=== PATIENT | female | born 1955 | race Caucasian/White ===

== ENCOUNTER 2018-05-09 14:44 | Emergency (ER) | payer BC ==
--- OUTSIDE RECORDS SUMMARY | 2018-05-09 14:48 | XMS REPORT | Summary of Care ---
:1955 Author Organization [facility] Address [address] [address]- Encounter HQ Charlie_kori(FIN) [id number] Date(s): 12/05/16 - 12/05/16 [facility] [address] [place] [phone] Discharge Disposition: Home or Self Care Attending Physician: Catia Haywood MD Referring Physician: Catia Haywood MD Vital Signs Most recent to oldest [Reference Range]: 1 Height 158.75 cm (12/05/16 11:14 AM) Blood Pressure [90-140/60-90 mmHg] 127/80 mmHg (12/05/16 11:14 AM) Respiratory Rate [14-20 BRMIN] 16 BRMIN (12/05/16 11:14 AM) Peripheral Pulse Rate [60-100 bpm] 66 bpm (12/05/16 11:14 AM) Weight 68.182 kg (12/05/16 11:14 AM) Body Mass Index 27.05 m2 (12/05/16 11:14 AM) Problem List Condition Effective Dates Status Health Status Informant Chronic constipation(Confirmed) Resolved Constipation(Confirmed) Active Bilateral breast cysts(Confirmed) Resolved History of IBS(Confirmed) Resolved Eye lesion(Confirmed) Resolved Migraines(Confirmed) Resolved Allergies, Adverse Reactions, Alerts Substance Reaction Severity Status contrast media (iodine-based) Active Demerol HCl Active morphine Active naproxen Active penicillins Active statins Active Medications aspirin 81 mg tablet, chewable 81 mg=1 tab, PO, TID, 0 Refill(s) Start Date: 12/05/16 Status: OrderedBenadryl 0 Refill(s) Start Date: 12/05/16 Status: Ordereddocusate sodium 100 mg oral capsule 200 mg=2 cap, PO, Daily, with plenty of water take at bedtime, # 60 cap, 1 Refill(s), Pharmacy: [place] [id number] Start Date: 12/05/16 Stop Date: 02/03/17 Status: OrderedMoviPrep oral powder for reconstitution See Instructions, as directed in clinic, # 1 ea, 0 Refill(s), Pharmacy: [place] [id number] Start Date: 12/05/16 Status: Ordered Results No data available for this section Immunizations No data available for this section Procedures Procedure Date Related Diagnosis Body Site Excision of cyst of breast Total hysterectomy Social History Social History Type Response Alcohol Current, Type Liquor. Frequency: 1-2 times per month. Smoking Status Never smoker; Ready to change: No; Concerns about tobacco use in household: No; Exposure to Tobacco Smoke None; Cigarette Smoking Last 365 Days No; Reg Smoking Cessation Counseling No Assessment and Plan No data available for this section
--- OUTSIDE RECORDS SUMMARY | 2018-05-09 14:48 | XMS REPORT | Continuity of Care Document ---
:1955 Author Organization Interface Problems Problem Status Onset Classification Date Comments Source Date Reported BDDC- ABD PAIN, Active 12/06/19 [facility] BLOATING, IBS, 17 Medical NAUSEA, E Center BDDC- ABD Active 12/06/19 [facility] FULLNESS R19.8; [address] [place] [address] GASTROPARESIS Center CONSULT Active 10/27/[address] Center Chronic Resolved Problem 12/08/2016 [facility] constipation [facility] Constipation Active Problem 12/08/2016 [facility] Bilateral breast Resolved Problem 12/08/2016 [facility] cysts [facility] History of IBS Resolved Problem 12/08/2016 [facility] Eye lesion Resolved Problem 12/08/2016 [facility] Migraines Resolved Problem 12/08/2016 [facility] Medications Medication Details Route Status Patient Ordering Order Source Instructions Provider Date Docusate Sodium 200 mg=2 Active [facility] 100 MG Oral cap, PO, 017 Medical Capsule Daily, with Rudolph plenty of water take at bedtime, # 60 cap, 1 Refill(s), Pharmacy: [facility] 256 Ascorbic Acid See Active [facility] 4.7 MG/ML / Instructions 017 Medical POLYETHYLENE , as Center GLYCOL 3350 100 directed in MG/ML / clinic, # 1 Potassium ea, 0 Chloride 0.0136 Refill(s), MEQ/ML / Sodium Pharmacy: [facility] 5.9 [facility] MG/ML / Sodium [facility] Chloride 0.046 256 MEQ/ML / sodium sulfate 7.5 MG/ML Oral Solution [MoviPrep] Benadryl 0 Refill(s) Active [address] Center Aspirin 81 MG 81 mg=1 tab, Active [facility] Chewable Tablet PO, TID, 0 017 Medical Refill(s) Rudolph Allergies, Adverse Reactions, Alerts Substance Category Reaction Severity Reaction Status Date Comments Source type Reported contrast Assertion Drug Active [facility] media allergy Medical (iodine-based Center ) Demerol HCl Assertion Drug Active [facility] morphine Assertion Drug Active [facility] naproxen Assertion Drug Active [facility] penicillins Assertion Drug Active [facility] statins Assertion Drug Active [facility] Immunizations Immunization Date Given Site Status Last Updated Comments Source Results Order Results Value Reference Date Interpretation Comments Source Name Range Vital Signs Vital Sign Value Date Comments Source Weight 68.182 12/05/2016 [facility] BMI Calculated 27.05 12/05/2016 [facility] Height 158.75 cm 12/05/2016 [facility] Heart Rate 66 12/05/2016 [facility] Respitory Rate 16 12/05/2016 [facility] Systolic (mm Hg) 127 12/05/2016 [facility] Diastolic (mm Hg) 80 12/05/2016 [facility] Encounters Location Location Encounter Encounter Reason Attending ADM DC Status Source Details Type Number For Provider Date Date [facility] [id number] Catia Haywood 12/05 12/06 [facility]2016 [facility] Outpatient [id number] ISMAEL 02/[address] Outpatient [id number] ISMAEL 04/[address] Outpatient [id number] ISMAEL 07/[address] Procedures Procedure Code Date Perfomer Comments Source Excision of cyst of [id number] [facility] breast [facility] Total hysterectomy [id number] [facility]
--- OUTSIDE RECORDS SUMMARY | 2018-05-09 14:48 | XMS REPORT ---
:1955 Author Organization [facility] Address [address] [place] [address] Care Team Providers Name Role Phone Unavailable Unavailable Unavailable Problems This patient has no known problems. Allergies, Adverse Reactions, Alerts This patient has no known allergies or adverse reactions. Medications This patient has no known medications.
[2018-05-09 16:20] LABS: Absolute Lymphocytes (CBC) 2.4 K/uL (0.7-4.9); Absolute Monocytes 0.4 K/uL (0.1-1.3); Absolute Neutrophil 3.4 K/uL (1.8-8.0); Basophils % 0.4 % (0-1.3); Eosinophils % 1.5 % (0-4.4); Hematocrit 43.1 % (36.0-45.0); Lymphocytes % 38.2 % (15.3-44.8); MCH 29.4 pg (27.0-35.0); MCV 86.4 fL (80-100); MPV 10.5 fL (7.6-11.3); RBC Red Blood Cell Count 4.99 M/uL (3.86-4.86)
[2018-05-09] MEDS ORDERED: FAMOTIDINE 20 MG/2 ML VIAL IV ONE (16:35)
[2018-05-09] MEDS ORDERED: ONDANSETRON 4 MG/2 ML VIAL ONE (16:35)
[2018-05-09 16:40] LABS: ALT/SGPT 23 U/L (12-78); AST/SGOT 13 U/L (15-37); Albumin 4.1 g/dL (3.4-5.0); Alkaline Phosphatase 81 U/L (45-117); BUN Blood Urea Nitrogen 13 mg/dL (7-18); Bicarbonate 26 mmol/L (21-32); Bilirubin Direct 0.1 mg/dL (0-0.2); Bilirubin Total 0.4 mg/dL (0.2-1.0); Glucose Level 91 mg/dL (74-106); Lipase 128 U/L (73-393); Magnesium 2.1 mg/dL (1.8-2.4); Potassium 4.1 mmol/L (3.5-5.1); Protein, Total 7.6 g/dL (6.4-8.2); Sodium Level 142 mmol/L (136-145); Troponin I < 0.02 ng/mL (0.0-0.045)
--- NOTE | 2018-05-09 16:46 | RAD REPORT ---
EXAM DESCRIPTION: RAD - Shoulder Left 2 View - 05/09/2018 4:00 pm CLINICAL HISTORY: Left shoulder pain COMPARISON: None. TECHNIQUE: Internal and external rotation views of the left shoulder were obtained. FINDINGS: There is no fracture or dislocation. Minimal degenerative change at the AC joint with no i nferiorly directed spur. There is degenerative change along the undersurface of the acromion. The acr omial humeral joint space is still normal range with no abnormal soft tissue calcification. No acute scapula finding. No acute or destructive finding identifiable. IMPRESSION: Mild acromion and AC joint degenerative change. No acute or destructive bone or joint fi nding.
--- NOTE | 2018-05-09 16:49 | RAD REPORT ---
EXAM DESCRIPTION: US - Abdomen Exam Limited - 05/09/2018 4:30 pm CLINICAL HISTORY: Abdominal pain, right upper quadrant pain COMPARISON: CT study March 2009 FINDINGS: No gallstones, sludge or other abnormalities within the gallbladder lumen. There is no wal l thickening or pericholecystic fluid. No common duct stone or biliary tree dilatation identified. IMPRESSION: Normal gallbladder and biliary tree ultrasound.
--- NOTE | 2018-05-09 16:56 | RAD REPORT ---
EXAM DESCRIPTION: CT - Stone Protocol - 05/09/2018 4:48 pm CLINICAL HISTORY: Right flank pain for 2 weeks, now with left flank pain and nausea COMPARISON: CT study March 2009 TECHNIQUE: Axial 5 mm thick images were obtained without oral or IV contrast. The [id number] span s the entirety of the system including uppermost abdomen and lung bases. All CT scans are performed using dose optimization technique as appropriate and may include automated exposure control or mA/KV adjustment according to patient size. FINDINGS: No hydronephrosis is present and no obstructing ureteral calculi. No suspicious renal mass es. Isodense masses and pyelonephritis are not excluded on a stone protocol CT scan. No urinary bladd er suspicious finding. No nonobstructing calculi. Right lower pelvic phleboliths are present outsi de of the system. Uterus is absent. Ovaries are absent or atrophic. No adnexal mass. Imaged portions of the liver, spleen and pancreas show no suspicious findings on non-contrast imaging . No gallbladder or biliary tree abnormality identified. No significant adrenal finding. No suspicious bowel findings. Appendix is normal. No acute colon process seen. No hernia, mass or bulky lymphadenopathy noted. No free air, free fluid or inflammatory stranding. No significant bony abnormality. IMPRESSION: Negative CT stone protocol study for acute finding. Isodense masses and pyelonephritis are not excluded on stone protocol technique.
[2018-05-09 17:24] LABS: Urine Blood NEGATIVE (NEG); Urine Glucose NEGATIVE (NEG); Urine Protein NEGATIVE (NEG); Urine pH 5.5 (5.0-7.0)
[2018-05-09 17:34] LABS: Urine Mucus 1+ /HPF (NONE SEEN)
[2018-05-09 17:35] LABS: Urine Bacteria 20-50 /HPF (<20); Urine Culture Reflex Order REFLEXED; Urine RBC <5 /HPF (NONE SEEN)
--- NOTE | 2018-05-09 17:44 | ER ---
Nurse's Notes [facility] Name: Valorie Fairchild Age: 62 yrs Sex: Female : 1955 Arrival Date: 05/09/2018 Time: 14:48 Bed 24 Private MD: Pasquale Cardenas S Diagnosis: Right flank pain;Pain in left shoulder Presentation: 05/09 14:59 Presenting complaint: Patient states: Right flank pain x 2 weeks, left flank pain, and hb nausea since this morning. Denies difficulty urinating/pain with urination. Transition of care: patient was not received from another setting of care. Onset of symptoms is unknown. Risk Assessment: Do you want to hurt yourself or someone else? Patient reports no desire to harm self or others. Care prior to arrival: None. 14:59 Method Of Arrival: Ambulatory hb 14:59 Acuity: LAKEISHA 3 hb 15:30 Initial Sepsis Screen: Does the patient meet any 2 criteria? No. Patient's initial ss sepsis screen is negative. Does the patient have a suspected source of infection? No. Patient's initial sepsis screen is negative. Historical: - Allergies: 15:03 PENICILLINS; hb 15:03 Zznvaxa-Pzs-Hex Reductase Inhibitors; hb 15:04 Sulfa (Sulfonamide Antibiotics); hb 15:04 IV Contrast; hb - Immunization history:: Adult Immunizations up to date. - Social history:: Smoking status: Patient/guardian denies using tobacco. - Ebola Screening: : No symptoms or risks identified at this time. Screenin:55 Abuse screen: Denies threats or abuse. Denies injuries from another. Nutritional ss screening: No deficits noted. Tuberculosis screening: No symptoms or risk factors identified. Never had TB. Fall Risk None identified. Assessment: 15:55 General: Appears in no apparent distress. comfortable, Behavior is calm, cooperative, ss Reports Pt reports she has been seen multiple times by PCP and [facility] for the same complaints, but nobody can find anything wrong with her. Pt reports that she believes she may have beeswax poisoning that may occlude her arteries. Denies fever, feeling ill, fatigue, chills. Pain: Complains of pain in R mid back, L shoulder and posterior aspect of L knee Pain currently is 8 out of 10 on a pain scale. Quality of pain is described as aching, Pain began April 26, 2018 Is continuous. Neuro: Level of Consciousness is awake, alert, obeys commands, Oriented to person, place, time, situation, Ssn/Ssbn Weapons Equipment Operator are equal bilaterally Moves all extremities. Full function Gait is steady, Speech is normal. Cardiovascular: Capillary refill < 3 seconds is brisk in bilateral fingers Patient's skin is warm and dry. Pulses are palpable in right radial artery, right posterior tibial artery, left radial artery and left posterior tibial artery. Respiratory: Airway is patent Respiratory effort is even, unlabored, Respiratory pattern is regular, symmetrical, Denies cough, shortness of breath pain with respiration, pain with cough, pain with movement. GI: Patient currently denies abdominal pain, diarrhea, nausea, vomiting. : No signs and/or symptoms were reported regarding the genitourinary system. Denies burning with urination, urinary frequency. EENT: Nares are clear Oral mucosa is moist. Derm: Skin is intact, is healthy with good turgor, Skin is dry, Skin is pink, warm \T\ dry. normal. Musculoskeletal: Circulation, motion, and sensation intact. Range of motion: intact in all extremities, Swelling absent. 16:30 Reassessment: Patient appears in no apparent distress at this time. Patient and/or ss family updated on plan of care and expected duration. Pain level reassessed. 17:45 Reassessment: Patient appears in no apparent distress at this time. No changes from ss previously documented assessment. Patient is alert, oriented x 3, equal unlabored respirations, skin warm/dry/pink. awaiting dispo. Vital Signs: 15:01 BP 126 / 78; Pulse 83; Resp 16; Temp 98.4; Pulse Ox 100% on R/A; Pain 8/10; hb 17:43 BP 135 / 85; Pulse 56; Resp 17; Pulse Ox 100% on R/A; Pain 8/10; ss ED Course: 14:48 Patient arrived in ED. mr 14:49 Jose Hood MD is Private Physician. mr 14:49 Pasquale Cardenas MD is Private Physician. mr 15:01 Triage completed. hb 15:04 Arm band placed on right wrist. hb 15:10 Jax Pacheco PA is PHCP. cp 15:11 Hima Trevino MD is Attending Physician. cp 15:57 X-ray completed. Portable x-ray completed in exam room. Patient tolerated procedure mh1 well. 15:59 XRAY Shoulder LEFT 2 view In Process Unspecified. EDMS 16:03 EKG done, by certified histologic technician. reviewed by Jax PEREIRA. dt2 16:10 Pulse ox on. NIBP on. jp3 16:10 Initial lab(s) drawn, by me, sent to lab. Urine collected: clean catch specimen, clear, jp3 carlos colored, Amount Voided: 80mL. 16:23 Jemima Shaver, RN is Primary Nurse. ss 16:25 Inserted saline lock: 20 gauge in right forearm, using aseptic technique. Blood jp3 collected. 16:26 Bed in low position. Call light in reach. Side rails up X 1. Side rails up X2. Warm jp3 blanket given. Pillow given. 16:26 Urine Dipstick--Ancillary (enter results) Sent. jp3 16:26 Magnesium Sent. jp3 16:26 Troponin I Sent. jp3 16:26 Basic Metabolic Panel Sent. jp3 16:27 Creatinine for Radiology Sent. jp3 16:27 Hepatic Function Sent. jp3 16:27 Lipase Sent. jp3 16:27 Urine Microscopic Only Sent. jp3 16:47 CT completed. Patient tolerated procedure well. Patient moved to CT via wheelchair. vr Patient moved back from CT. 17:04 US Abdomen Limited In Process Unspecified. EDMS 17:05 CT Stone Protocol In Process Unspecified. EDMS 17:42 Gurinder Sanchez MD is Referral Physician. cp 18:02 No provider procedures requiring assistance completed. IV discontinued, intact, ss bleeding controlled, No redness/swelling at site. Pressure dressing applied. Administered Medications: 16:32 Drug: Zofran 4 mg Route: IVP; Site: right antecubital; ss 17:38 Follow up: Response: No adverse reaction ss 16:36 Drug: Pepcid 20 mg Route: IVP; Site: right antecubital; ss 17:38 Follow up: Response: No adverse reaction ss Outcome: 17:44 Discharge ordered by . cp 18:03 Discharged to home ambulatory, with significant other. ss 18:03 Condition: good 18:03 Discharge instructions given to patient, significant other, Instructed on discharge instructions, follow up and referral plans. medication usage, Demonstrated understanding of instructions, follow-up care, medications, Prescriptions given X 2. 18:05 Patient left the ED. Signatures: Dispatcher [employer] EDAna Hancock Martha mh1 Jemima Shaver, RN RN Julita Dorantes Corey, PA PA cp Baxter, Heather, MEKHI RN therese Gross, Valeria dt2 Emory Mulligan jp3 Corrections: (The following items were deleted from the chart) 16:03 16:03 EKG done, by certified histologic technician. reviewed by Hima Trevino MD dt2 dt2
--- NOTE | 2018-05-09 17:44 | EDPHYS ---
Physician Documentation [facility] Name: Valorie Fairchild Age: 62 yrs Sex: Female : 1955 Arrival Date: 05/09/2018 Time: 14:48 Bed 24 Private MD: Pasquale Cardenas S ED Physician Hima Trevino HPI: 05/09 15:56 This 62 yrs old Female presents to ER via Ambulatory with complaints of Back cp Pain, Shoulder Pain. 15:56 The patient complains of pain in the right mid back. The pain radiates to the abdomen. cp 15:57 Onset: The symptoms/episode began/occurred 2 week(s) ago. cp 15:57 Associated signs and symptoms: Pertinent positives: left shoulder pain, Pertinent cp negatives: diarrhea, dizziness, dysuria, fever, headache, pain radiating to the lower extremities, vomiting. Historical: - Allergies: 15:03 PENICILLINS; hb 15:03 Arkqnig-Ulc-Rgt Reductase Inhibitors; hb 15:04 Sulfa (Sulfonamide Antibiotics); hb 15:04 IV Contrast; hb - Immunization history:: Adult Immunizations up to date. - Social history:: Smoking status: Patient/guardian denies using tobacco. - Ebola Screening: : No symptoms or risks identified at this time. ROS: 16:00 Constitutional: Negative for body aches, chills, fever, poor PO intake. cp 16:00 Eyes: Negative for injury, pain, redness, and discharge. cp 16:00 ENT: Negative for drainage from ear(s), ear pain, sore throat, difficulty swallowing, difficulty handling secretions. 16:00 Cardiovascular: Negative for chest pain, edema, palpitations. 16:00 Respiratory: Negative for cough, shortness of breath, wheezing. 16:00 Abdomen/GI: Positive for abdominal pain, Negative for vomiting, diarrhea, constipation, anorexia, black/tarry stool, rectal bleeding. 16:00 Back: Positive for flank pain, on the right, Negative for injury or acute deformity, decreased range of motion. 16:00 MS/extremity: Positive for pain, of the left shoulder, Negative for injury or acute deformity, decreased range of motion, paresthesias. 16:00 Skin: Negative for cellulitis, rash. 16:00 Neuro: Negative for altered mental status, dizziness, headache, weakness. 16:00 All other systems are negative. Exam: 15:55 ECG was reviewed by the Attending Physician. cp 16:05 Constitutional: The patient appears in no acute distress, alert, awake, cp non-diaphoretic, non-toxic, well developed, well nourished. 16:05 Head/Face: Normocephalic, atraumatic. Eyes: Pupils equal round and reactive to light, cp extra-ocular motions intact. Lids and lashes normal. Conjunctiva and sclera are non-icteric and not injected. Cornea within normal limits. Periorbital areas with no swelling, redness, or edema. ENT: Nares patent. No nasal discharge, no septal abnormalities noted. Tympanic membranes are normal and external auditory canals are clear. Oropharynx with no redness, swelling, or masses, exudates, or evidence of obstruction, uvula midline. Mucous membranes moist. Neck: Trachea midline, no thyromegaly or masses palpated, and no cervical lymphadenopathy. Supple, full range of motion without nuchal rigidity, or vertebral point tenderness. No Meningismus. Chest/axilla: Normal chest wall appearance and motion. Nontender with no deformity. No lesions are appreciated. 16:05 Cardiovascular: Rate: normal, Rhythm: regular, Pulses: Pulses are 2+ in right radial artery and left radial artery. Edema: is not appreciated, JVD: is not appreciated. 16:05 Respiratory: the patient does not display signs of respiratory distress, Respirations: normal, no use of accessory muscles, no retractions, no splinting, no tachypnea, labored breathing, is not present, Breath sounds: are clear throughout, no decreased breath sounds, no stridor, no wheezing. 16:05 Abdomen/GI: Inspection: abdomen appears normal, Bowel sounds: active, all quadrants, Palpation: soft, in all quadrants, mild abdominal tenderness, in the right upper quadrant, rebound tenderness, is not appreciated, involuntary guarding, is not appreciated. 16:05 Back: pain, that is mild, of the right mid back, ROM is normal, vertebral tenderness, is not appreciated. 16:05 Musculoskeletal/extremity: Extremities: grossly normal except: noted in the left shoulder: pain, tenderness, There is no evidence of decreased ROM, deformity, swelling. 16:05 Skin: cellulitis, is not appreciated, no rash present. 16:05 Neuro: Orientation: to person, place \T\ time. Mentation: is normal, Cerebellar function: is grossly normal, Motor: moves all fours, strength is normal, Sensation: is normal, Gait: is steady. Vital Signs: 15:01 BP 126 / 78; Pulse 83; Resp 16; Temp 98.4; Pulse Ox 100% on R/A; Pain 8/10; hb 17:43 BP 135 / 85; Pulse 56; Resp 17; Pulse Ox 100% on R/A; Pain 8/10; ss MDM: 15:12 Patient medically screened. cp 16:00 Differential diagnosis: nephrolithiasis, pyelonephritis, UTI, diverticulitis, cp pancreatitis, cholecystitis. 17:42 Data reviewed: vital signs, nurses notes, lab test result(s), EKG, radiologic studies, cp CT scan, plain films, ultrasound. 17:42 Test interpretation: by ED physician or midlevel provider: ECG, plain radiologic cp studies. Counseling: I had a detailed discussion with the patient and/or guardian regarding: the historical points, exam findings, and any diagnostic results supporting the discharge/admit diagnosis, lab results, radiology results, the need for outpatient follow up, for definitive care, a family practitioner, a orthopedic surgeon. Response to treatment: the patient's symptoms have mildly improved after treatment, and as a result, I will discharge patient. 05/09 15:11 Order name: Urine Microscopic Only; Complete Time: 17:36 cp 05/09 17:36 Interpretation: Normal except: UWBC 5-10; UBACT 20-50; SQEPI 10-20. cp 05/09 15:35 Order name: Basic Metabolic Panel; Complete Time: 17:36 cp 05/09 17:36 Interpretation: Normal except: CL 109; GFR 73. cp 05/09 15:35 Order name: CBC with Diff; Complete Time: 16:28 cp 05/09 16:28 Interpretation: Normal except: RBC 4.99. cp 05/09 15:35 Order name: Creatinine for Radiology; Complete Time: 17:36 cp 05/09 15:35 Order name: Hepatic Function; Complete Time: 17:36 cp 05/09 15:35 Order name: Lipase; Complete Time: 17:36 cp 05/09 15:35 Order name: Troponin I; Complete Time: 17:36 cp 05/09 15:35 Order name: US Abdomen Limited; Complete Time: 17:36 cp 05/09 17:37 Interpretation: Report reviewed. cp 05/09 15:35 Order name: Magnesium; Complete Time: 17:36 cp 05/09 15:35 Order name: XRAY Shoulder LEFT 2 view; Complete Time: 17:36 cp 05/09 17:37 Interpretation: Report reviewed. 05/09 16:21 Order name: Urine Dipstick--Ancillary (enter results); Complete Time: 17:36 bd 05/09 16:30 Order name: CT Stone Protocol; Complete Time: 17:36 cp 05/09 17:36 Order name: Urine Culture EDMS 05/09 15:11 Order name: Urine Dipstick-Ancillary (obtain specimen); Complete Time: 16:24 cp 05/09 15:11 Order name: Urine Test (obtain specimen); Complete Time: 16:24 cp 05/09 15:35 Order name: IV Saline Lock; Complete Time: 16:24 cp 05/09 15:35 Order name: Labs collected and sent; Complete Time: 16:24 cp 05/09 15:35 Order name: EKG - Nurse/Tech; Complete Time: 16:24 cp 05/09 15:35 Order name: EKG; Complete Time: 15:37 cp EC:55 Rate is 63 beats/min. Rhythm is regular. OR interval is normal. QRS interval is normal. cp QT interval is normal. T waves are Inverted in lead III. Interpreted by me. Reviewed by me. Administered Medications: 16:32 Drug: Zofran 4 mg Route: IVP; Site: right antecubital; ss 17:38 Follow up: Response: No adverse reaction ss 16:36 Drug: Pepcid 20 mg Route: IVP; Site: right antecubital; ss 17:38 Follow up: Response: No adverse reaction Disposition: 18:12 Co-signature as Attending Physician, Hima Trevino MD I agree with the assessment and kdr plan of care. Disposition: 05/09/18 17:44 Discharged to Home. Impression: Right flank pain, Pain in left shoulder. - Condition is Stable. - Discharge Instructions: Flank Pain, Adult, Shoulder Pain. - Prescriptions for Anaprox DS 550 mg Oral Tablet - take 1 tablet by ORAL route every 12 hours As needed; 20 tablet. Macrobid 100 mg Oral Capsule - take 1 capsule by ORAL route every 12 hours for 7 days; 14 capsule. - Medication Reconciliation Form, Thank You Letter, Antibiotic Education, Prescription Opioid Use form. - Follow up: Private Physician; When: 2 - 3 days; Reason: flank and abdomen pain. Follow up: Gurinder Sanchez MD; When: 2 - 3 days; Reason: shoulder pain. - Problem is new. - Symptoms have improved. Signatures: Dispatcher [employer] EDID Hima Trevino MD MD [facility] Jemima Shaver RN RN Jax Pacheco PA PA cp Nasreen Gonsalez RN RN Corrections: (The following items were deleted from the chart) 18:05 17:44 05/09/2018 17:44 Discharged to Home. Impression: Right flank pain; Pain in left ss shoulder. Condition is Stable. Forms are Medication Reconciliation Form, Thank You Letter, Antibiotic Education, Prescription Opioid Use. Follow up: Private Physician; When: 2 - 3 days; Reason: flank and abdomen pain. Follow up: Gurinder Sanchez; When: 2 - 3 days; Reason: shoulder pain. Problem is new. Symptoms have improved. cp
--- NOTE | 2018-05-12 07:17 | EKG ---
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
== END 2018-05-09 18:05 | disposition home or self-care (01) ==
LOC: ER 14:44
DX: M25.512 Pain in left shoulder (principal); Z88.0 Allergy status to penicillin; Z88.2 Allergy status to sulfonamides; Z88.8 Allergy status to other drugs, medicaments and biological substances; Z91.041 Radiographic dye allergy status
CPT/HCPCS: 36415; 74176; 76377; 76705; 80048; 80076; 81003; 81015; 83690; 83735; 84484; 85025; 87086; 87088; 93005; 96374; 96375; 99284; J2405

== ENCOUNTER 2019-02-14 23:47 | Emergency (ER) | payer BC ==
--- OUTSIDE RECORDS SUMMARY | 2019-02-14 23:50 | XMS REPORT | Continuity of Care Document ---
:1955 Author Organization [employer] [facility] Care Team Providers Name Role Phone [employer] [facility] Unavailable Unavailable Problems Problem Status Onset Classification Date Comments Source Date Reported BDDC- ABD Active 12/06/19 [facility] FULLNESS R19.8; [address] [place] [address] GASTROPARESIS Center BDDC- ABD PAIN, Active 12/06/19 [facility] BLOATING, IBS, [address] [place] [address] NAUSEA, E Center CONSULT Active 10/27/[address] Chronic Resolved Problem 01/24/2019 [facility] constipation Neuro, (disorder) [facility] Constipation Active Problem 01/24/2019 [facility] (disorder) Neuro,[facility] Cyst of breast Resolved Problem 01/24/2019 [facility] (disorder) Neuro,[facility] History of Resolved Problem 01/24/2019 [facility] irritable bowel Neuro, syndrome [place] (situation) [facility] Hyperlipidemia Active Problem 01/24/2019 [facility] (disorder) Neuro Lesion of eye Active Problem 01/24/2019 [facility] structure Neuro, (finding) [facility] Migraine Active Problem 01/24/2019 [facility] Problem 01/24/2019 [facility] (finding) Neuro Medications Medication Details Route Status Patient Ordering Order Source Instructions Provider Date Docusate Sodium 200 mg=2 Active [facility] 100 MG Oral cap, PO, 017 Medical Capsule Daily, with Center plenty of water take at bedtime, # 60 cap, 1 Refill(s), Pharmacy: [facility] 256 Ascorbic Acid See Active [facility] 4.7 MG/ML / Instructions 017 Medical POLYETHYLENE , as Center GLYCOL 3350 100 directed in MG/ML / clinic, # 1 Potassium ea, 0 Chloride 0.0136 Refill(s), MEQ/ML / Sodium Pharmacy: [facility] 5.9 [facility] MG/ML / Sodium [facility] Chloride 0.046 256 MEQ/ML / sodium sulfate 7.5 MG/ML Oral Solution [MoviPrep] Benadryl 0 Refill(s) Active [address] Aspirin 81 MG 81 mg=1 tab, Active [facility] Chewable Tablet PO, TID, 0 017 Medical Refill(s) Center Allergies, Adverse Reactions, Alerts Substance Category Reaction Severity Reaction Status Date Comments Source type Reported penicillins Assertion Drug Active [facility] sulfa drugs Assertion unknown Severe Drug Active [facility] naproxen Assertion Drug Active [facility] morphine Assertion Drug Active [facility] Zomig Assertion Drug Active [facility] Demerol HCl Assertion Drug Active [facility] NSAIDs Assertion Drug Active [facility] statins Assertion Drug Active [facility] contrast Assertion Drug Active [facility] media allergy Neuro (iodine-based ) Immunizations No Data Provided for This Section Results No Data Provided for This Section Pathology Reports No Data Provided for This Section Diagnostic Reports No Data Provided for This Section Consultation Notes No Data Provided for This Section Discharge Summaries No Data Provided for This Section History and Physicals No Data Provided for This Section Vital Signs Vital Sign Value Date Comments Source Systolic (mm Hg) 132 01/21/2019 [facility] Neuro Diastolic (mm Hg) 82 01/21/2019 [facility] Neuro Heart Rate 77 01/21/2019 [facility] Neuro Respitory Rate 16 01/21/2019 [facility] Neuro Height 157.48 cm 01/21/2019 [facility] Neuro Weight 65.909 01/21/2019 [facility] Neuro BMI Calculated 26.58 01/21/2019 [facility] Neuro BMI Calculated 27.68 04/01/2018 [facility] Neuro Weight 68.636 04/01/2018 [facility] Neuro Height 157.48 cm 04/01/2018 [facility] Neuro Systolic (mm Hg) 139 04/01/2018 [facility] Neuro Diastolic (mm Hg) 91 04/01/2018 [facility] Neuro Heart Rate 89 04/01/2018 [facility] Neuro Respitory Rate 16 04/01/2018 [facility] Neuro Weight 68.182 12/05/2016 [facility] BMI Calculated 27.05 12/05/2016 [facility] Height 158.75 cm 12/05/2016 [facility] Heart Rate 66 12/05/2016 [facility] Respitory Rate 16 12/05/2016 [facility] Systolic (mm Hg) 127 12/05/2016 [facility] Diastolic (mm Hg) 80 12/05/2016 [facility] Encounters Location Location Encounter Encounter Reason Attending ADM DC Status Source Details Type Number For Provider Date Date Visit [facility] [id number] Catia Haywood 12/05 12/06 [facility] /2016 Medical EDID Center Outpatient [id number] ISMAEL 02/18 Active [facility] Outpatient [id number] ISMAEL 04/01 [facility] Outpatient [id number] Ismael 04/01 04/02 [facility] Neurology [facility] /2017 Neuro [facility] Outside [id number] 06/12 06/14 [facility] Medical /2018 Neuro Bryan Records Outpatient [id number] ISMAEL 07/23 Active [facility] Outpatient [id number] Ismael 01/21 [facility] Outpatient [id number] Ismael 01/21 01/22 [facility] Neurology [facility] /2018 Neuro Bryan Outpatient [id number] Ismael 01/19 [facility] Procedures Procedure Code Date Perfomer Comments Source Appendectomy [id number] [facility] Neuro Excision of cyst of [id number] [facility] breast Neuro,[facility] Total hysterectomy [id number] [facility] Assessment and Plan No Data Provided for This Section Plan of Care No Data Provided for This Section Social History Social History Date Source Social History TypeResponse 12/05/2016 [facility] Alcohol Current, Type Liquor. Frequency: 1-2 times per month. Smoking Status Never smoker; Ready to change: No; Concerns about tobacco use in household: No ; Exposure to Tobacco Smoke None; Exposure to Tobacco Smoke Unable to obtain; Cigarette Smoking Last 365 Days Unable to obtain; Reg Smoking Cessation Counseling No entered on: 01/21/19 Social History TypeResponse 12/05/2016 [facility] Alcohol Current, Type Liquor. Frequency: 1-2 times per month. Smoking Status Never smoker; Ready to change: No; Concerns about tobacco use in household: No ; Exposure to Tobacco Smoke None; Cigarette Smoking Last 365 Days No; Reg Smoking Cessation Counseling No Family History No Data Provided for This Section Advance Directives No Data Provided for This Section Functional Status No Data Provided for This Section
--- OUTSIDE RECORDS SUMMARY | 2019-02-14 23:50 | XMS REPORT | Summary of Care ---
:1955 Author Organization [facility] Address [address] [place] [address]- Encounter HQ Garretntr_aliyane(FIN) [id number] Date(s): 06/12/18 - 06/13/18 [facility] [address] [place] [address]- [phone] Vital Signs No data available for this section Problem List Condition Effective Dates Status Health Status Informant Chronic constipation(Confirmed) Resolved Constipation(Confirmed) Active Bilateral breast cysts(Confirmed) Resolved History of IBS(Confirmed) Resolved Hyperlipidemia(Confirmed) Active Eye lesion(Confirmed) Active Migraines(Confirmed) Active Paresthesias(Confirmed) Active Allergies, Adverse Reactions, Alerts Substance Reaction Severity Status penicillins Active sulfa drugs unknown Severe Active naproxen Active morphine Active Zomig Active Demerol HCl Active NSAIDs Active statins Active contrast media (iodine-based) Active Medications No data available for this section Results No data available for this section Immunizations No data available for this section Procedures Procedure Date Related Diagnosis Body Site Status Appendectomy Completed Excision of cyst of breast Completed Total hysterectomy Completed Social History Social History Type Response Alcohol Current, Type Liquor. Frequency: 1-2 times per month. Smoking Status Never smoker; Ready to change: No; Concerns about tobacco use in household: No; Exposure to Tobacco Smoke None; Exposure to Tobacco Smoke Unable to obtain; Cigarette Smoking Last 365 Days Unable to obtain; Reg Smoking Cessation Counseling No entered on: 07/23/18 Assessment and Plan No data available for this section
--- OUTSIDE RECORDS SUMMARY | 2019-02-14 23:51 | XMS REPORT | Summary of Care ---
:1955 Author Organization [facility] [place] Address [address] [place] [address]- phone Encounter HQ Janneth(FIN) [id number] Date(s): 01/21/19 - 01/21/19 [facility] [address] [place] [address]- [phone] Discharge Disposition: Home or Self Care Attending Physician: Janak Ayoub MD Referring Physician: Janak Ayoub MD Vital Signs Most recent to oldest [Reference Range]: 1 Height 157.48 cm (01/21/19 1:18 PM) Blood Pressure [90-140/60-90 mmHg] 132/82 mmHg (01/21/19 1:18 PM) Respiratory Rate [14-20 BRMIN] 16 BRMIN (01/21/19 1:18 PM) Peripheral Pulse Rate [60-100 bpm] 77 bpm (01/21/19 1:18 PM) Weight 65.909 kg (01/21/19 1:18 PM) Body Mass Index 26.58 m2 (01/21/19 1:18 PM) Problem List Condition Effective Dates Status Health [...] Active contrast media (iodine-based) Active Medications No Known Medications Results No data available for this section [...] Smoking Cessation Counseling No entered on: 01/21/19 Assessment and Plan No data available for this section
--- OUTSIDE RECORDS SUMMARY | 2019-02-14 23:51 | XMS REPORT | Summary of Care ---
:1955 Author Organization [facility] Address [address] [place] [address] Care Team Providers Name Role Phone Pasquale Cardenas MD Primary Care Provider Reason for Referral Radiology Services (Routine) Status Reason Specialty Diagnoses / Referred By Referred To Procedures Contact Contact Closed Diagnostic Diagnoses Rib pain on left side Agustina Fariaa, Radiology Procedures XR RIBS 3 VW LEFT [employer] [address] [address] Reason for Visit Reason Comments Abdominal Pain left sided, x2 weeks LAB WORK Encounter Details Date Type Department Care Team Description 02/10/2019 Office Visit [facility] Abby Faria, [employer] Rib pain on left side (Primary Dx); [facility] [address]; [address] Acute cystitis without hematuria; [place] [address] Elevated liver enzymes [address] [place], [place] [phone] [address] Allergies Active Allergy Reactions Severity Noted Date Comments Iodine Rash 09/30/2009 Nsaids (Non-Steroidal Other - See comments 08/23/2017 Severe abdominal pain Anti-Inflammatory Drug) Penicillins Rash 09/30/2009 Sulfur Shortness of Breath 09/30/2009 documented as of this encounter (statuses as of 02/12/2019) Medications Medication Sig Dispensed Refills Start Date End Date Status ESGIC-PLUS 50-500-40 1 tab prn 0 Active MG ORAL TAB migraines aspirin 81 mg EC Take 81 mg by 0 Active tabletIndications: TID mouth daily. in morning and night Indications: TID in morning and night azelastine 137 mcg Use 1 Sabina in 30 mL 2 08/23/2017 Active (0.1 %) nasal each nostril 2 sprayIndications: (two) times Acute seasonal daily. Use in allergic rhinitis due each nostril as to pollen directed potassium chloride Take 1 tablet by 30 tablet 5 08/23/2017 Active (KLOR-CON 10) 10 mEq mouth daily. CR tabletIndications: Edema, unspecified type albuterol 90 Inhale 2 Puffs 8.5 g 12 08/23/2017 Active mcg/actuation every 6 (six) inhalerIndications: hours as needed Asthma, unspecified for Wheezing or asthma severity, Shortness of unspecified whether Breath. complicated, unspecified whether persistent diphenhydramine HCl Take by mouth. 0 Active (BENADRYL ALLERGY ORAL) LASIX 20 mg TAKE ONE TABLET 30 tablet 4 12/22/2018 Active tabletIndications: BY MOUTH DAILY Edema, unspecified NEEDED FOR type SWELLING ciprofloxacin HCl Take 1 tablet by 6 tablet 0 02/12/2019 02/15/2019 Active (CIPRO) 250 mg mouth every 12 tabletIndications: (twelve) hours Acute cystitis without for 3 days. hematuria documented as of this encounter (statuses as of 02/12/2019) Active Problems Problem Noted Date Nonintractable headache, unspecified chronicity pattern, unspecified 2017 headache type Pain of right hand 04/22/2018 Mass of hand, right 04/22/2018 Scalp mass 04/22/2018 Throat discomfort 08/15/2015 documented as of this encounter (statuses as of 02/12/2019) Immunizations Name Administration Dates Next Due Tdap 11/02/2015 documented as of this encounter Social History Tobacco Use Types Packs/Day Years Used Date Never Smoker Smokeless Tobacco: Never Used Alcohol Use Drinks/Week oz/Week Comments No Sex Assigned at Date Recorded Not on file Job Start Date Occupation Industry Not on file Not on file Not on file Travel History Travel Start Travel End No recent travel history available. 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 Total of 1 attempts were made. Slight pressureand a bandage/ dressing were applied to the site(s). The patient experienced no complications. Specimens were sent processed to [facility] laboratories. Abby Mendez FNP - 02/10/2019 12:00 PM CDT Cc: Chief Complaint Patient presents with Abdominal Pain left sided, x2 weeks Valorie Fairchild is a 63 year old female. Patient is here with pain along the left rib, she denies any injury but states she sleeps walks and sometimes injures herself in her sleep without known. No pain with deep breathing, pain is only elicited with certain motion (roation, going from prone to supine and supine to prone) , pain also radiates across the epigastric region and flank region, but no urinary symptoms. She then added she has neurological issues that prevent her from having urinary symptoms a few time he was diagnosed with UTI, she had no symptoms. She has had this rib pain for over 1 week, no URI symptoms, no other associated symptoms. Abdominal Pain Pain location: L flank and epigastric Pain quality: aching and tugging Pain radiates to: L flank and epigastric region Pain severity: Moderate Onset quality: Gradual Timing: Intermittent Progression: Unchanged Chronicity: New Context: trauma (possible) Context: not awakening from sleep Relieved by: Nothing Worsened by: Nothing Ineffective treatments: None tried Associated symptoms: constipation (chronic ) Associated symptoms: no chest pain, no chills, no cough, no dysuria, no fever, no hematuria, no nausea and no shortness of breath Allergies Valorie is allergic to iodine; nsaids (non-steroidal anti-inflammatory drug); pcn [penicillins]; andsulfur. Medications Outpatient Medications Prior to Visit Medication Sig Dispense Refill LASIX 20 mg tablet TAKE ONE TABLET BY MOUTH DAILY NEEDED FOR SWELLING 30 tablet 4 diphenhydramine HCl (BENADRYL ALLERGY ORAL) Take by mouth. albuterol 90 mcg/actuation inhaler Inhale 2 Puffs every 6 (six) hours as needed for Wheezing or Shortness of Breath. 8.5 g 12 azelastine 137 mcg (0.1 %) nasal spray Use 1 Sabina in each nostril 2 (two) times daily. Use in each nostril as directed 30 mL 2 potassium chloride (KLOR-CON 10) 10 mEq CR tablet Take 1 tablet by mouth daily. 30 tablet 5 aspirin 81 mg EC tablet Take 81 mg by mouth daily. Indications: TID in morning and night ESGIC-PLUS 50-500-40 MG ORAL TAB 1 tab prn migraines No facility-administered medications prior to visit. Histories Past Medical History: Diagnosis Date Diverticulitis IBS (irritable bowel syndrome) Migraine headache Mitral valve prolapse Followed by Dr. Patel Past Surgical History: Procedure Laterality Date APPENDECTOMY BREAST BIOPSY 1986 CYST EXCISION 1981 Right wrist VAGINAL HYSTERECTOMY 1998 Social History Socioeconomic History Marital status: Spouse name: Not on file Number of children: Not on file Years of education: Not on file Highest education level: Not on file Occupational History Not on file Social Needs Financial resource strain: Not on file Food insecurity: Worry: Not on file Inability: Not on file Transportation needs: Medical: Not on file Non-medical: Not on file Tobacco Use Smoking status: Never Smoker Smokeless tobacco: Never Used Substance and Sexual Activity Alcohol use: No Drug use: No Sexual activity: Not on file Lifestyle Physical activity: Days per week: Not on file Minutes per session: Not on file Stress: Not on file Relationships Social connections: Talks on phone: Not on file Gets together: Not on file Attends jew service: Not on file Active member of club or organization: Not on file Attends meetings of clubs or organizations: Not on file Relationship status: Not on file Intimate partner violence: Fear of current or ex partner: Not on file Emotionally abused: Not on file Physically abused: Not on file Forced sexual activity: Not on file Other Topics Concern Service Not Asked Blood Transfusions Not Asked Caffeine Concern Not Asked Occupational Exposure Not Asked Hobby Hazards Not Asked Sleep Concern Yes Stress Concern Yes Weight Concern No Special Diet Not Asked Back Care Not Asked Exercise Not Asked Bike Helmet Not Asked Seat Belt Not Asked Self-Exams Not Asked Social History Narrative Lives at home with . Family History Problem Relation Age of Onset Pulmonary Mother Heart Mother SLE (systemic lupus erythematosus) Mother Pulmonary Father Heart Father Asthma Sister Asthma Sister Asthma Brother Review of Systems Constitutional: Negative. Negative for chills and fever. Respiratory: Negative. Negative for apnea, cough, choking, chest tightness, shortness of breath andwheezing. Cardiovascular: Negative. Negative for chest pain, palpitations and leg swelling. Gastrointestinal: Positive for abdominal pain (left upper corner by the rib cage ) and constipation (chronic ). Negative for nausea. Genitourinary: Negative for dysuria and hematuria. Skin: Negative. Neurological: Negative. Endocrine: Endocrine negative Vital Signs BP 138/88 | Pulse 74 | Wt 146 lb (66.2 kg) | SpO2 96% | BMI 26.70 kg/m Physical Exam Constitutional: She is oriented to person, place, and time. She appears well- developed and well-nourished. HENT: Head: Normocephalic. Right Ear: External ear normal. Left Ear: External ear normal. Nose: Nose normal. Neck: Normal range of motion. Neck supple. Cardiovascular: Normal rate, regular rhythm, normal heart sounds and intact distal pulses. Exam reveals no gallop and no friction rub. No murmur heard. Pulmonary/Chest: Effort normal and breath sounds normal. No respiratory distress. She has no wheezes. She has no rales. She exhibits no tenderness. Abdominal: Soft. Bowel sounds are normal. She exhibits no distension. There is no splenomegaly. There is tenderness in the left upper quadrant. There is no CVA tenderness. Neurological: She is alert and oriented to person, place, and time. Skin: Skin is warm and dry. Capillary refill takes less than 2 seconds. No rash noted. No erythema. No pallor. Psychiatric: She has a normal mood and affect. Nursing note and vitals reviewed. Assessment/Plan 1. Left rib pain Vs. Left upper quadrant pain: Will get rib series, labs (UA with culture, CBC, CMP) for further eval. Take Tylenol as needed for pain. Avoid any strenuous motion or activities involving the region. Further interventions to follow depending on study result. RTC if no improvement worseor new onset of symptoms. Plan of care, desired health behaviors, goals, and medication discussed with patient. Education resources provided and reviewed with AVS. Patient/guardian/family verbalized understanding & agrees to plan of care. This visit did not involve counseling and coordination that comprised more than 50% of the visit time. If applicable, the [place] DEPALLETI[employer] OPERATOR database was accessed to review any controlled substance prescription claims data. The [place] [employer] prescription claims data in [employer] was reviewed to assess patient compliance with the medication treatment plan. documented in this encounter Plan of Treatment Name Type Priority Associated Diagnoses Date/Time URINE CULTURE LAB Routine Flank pain 02/10/2019 1:05 PM CDT Name Type Priority Associated Diagnoses Order Schedule COMP. METABOLIC PANEL LAB Routine Elevated liver enzymes Expected: 2018, ([id number]) Expires: 03/14/2019 HEPATITIS C VIRUS LAB Routine Elevated liver enzymes Expected: 02/26/2019, ANTIBODY Expires: 03/14/2019 HEPATITIS A AB, IGG AND LAB Routine Elevated liver enzymes Expected: 2018, IGM Expires: 03/14/2019 HEPATITIS B CORE ANTIBODY LAB Routine Elevated liver enzymes Expected: , IGM Expires: 03/14/2019 HEPATITIS B SURFACE LAB Routine Elevated liver enzymes Expected: 02/26/2019 , ANTIBODY Expires: 03/14/2019 Health Maintenance Due Date Last Done Comments HEPATITIS C (HCV) SCREEN 1955 COLONOSCOPY 2006 MAMMOGRAM 02/01/2018 02/01/2017 INFLUENZA VACCINE (#1) 2019 Zoster Recombinant Vaccine 02/11/2020 Postponed from 2006 (SHINGRIX) (1 of 2) (Patient Refused) DTaP,Tdap,and Td Vaccines (2 - 11/01/2025 11/02/2015 Td) PNEUMOCOCCAL 0-64 YEARS COMBINED Aged Out No longer eligible based on SERIES patient's age to complete this topic documented as of this encounter Procedures Procedure Name Priority Date/Time Associated Comments Diagnosis URINE CULTURE Routine 02/10/2019 1:05 Flank pain PM CDT URINALYSIS Routine 02/10/2019 1:05 Flank pain Results for this PM CDT procedure are in the results section. CBC WITH DIFFERENTIAL Routine 02/10/2019 12:53 Flank pain Results for this PM CDT procedure are in the results section. CBC WITH DIFF Routine 02/10/2019 12:53 Flank pain Results for this PM CDT procedure are in the results section. COMP. METABOLIC PANEL Routine 02/10/2019 12:53 Flank pain Results for this (82461) PM CDT procedure are in the results section. documented in this encounter Results XR RIBS 3 VW LEFT (02/10/2019 1:57 PM CDT) Specimen Narrative Performed At HISTORY: Left rib pain. PACS/VR/DOSE FINDINGS: AP, several obliques and spot views of the left ribs showed no acute displaced fractures. No suspicious rib lesions visualized. No pneumothorax or pleural effusion. Left lung is clear. No left-sided kidney stones visualized. CONCLUSIONS: Normal left rib radiographs. Procedure Note [facility], Radiant Results Inft User - 02/10/2019 2:01 PM CDT HISTORY: Left rib pain. FINDINGS: AP, several obliques and spot views of the left ribs showed no acute displaced fractures. No suspicious rib lesions visualized. No pneumothorax or pleural effusion. Left lung is clear. No left-sided kidney stones visualized. CONCLUSIONS: Normal left rib radiographs. Performing Organization Address City/State/Zipcode Phone Number PACS/VR/DOSE URINALYSIS (02/10/2019 1:05 PM CDT) APPEARANCE Clear Clear [facility] COLOR Yellow Yellow [facility] PH 7.0 4.8 - 8.0 [facility] SP GRAVITY <=1.005 1.003 - 1.030 [facility] GLU U QUAL Negative Negative [facility] BLOOD Negative Negative [facility] KETONES Negative Negative [facility] PROTEIN Negative Negative [facility] UROBILIN 0.2 mg/dL 0-1.0 mg/dL [facility] BILIRUBIN Negative Negative [facility] NITRITE Negative Negative [facility] LEUK MARLEY Small (A) Negative [facility] RBC/HPF 0 0 - 3 HPF [facility] WBC/HPF 3 0 - 5 HPF [facility] BACTERIA Negative Negative [facility] SQ EPITH 1 HPF [facility] TIFFANIE EPITH 3 HPF [facility] Specimen Urine - URINE, CLEAN CATCH Performing Organization Address City/State/Zipcode Phone Number [facility] CLIA: [id number], [address] [place] [address] CBC WITH DIFFERENTIAL (02/10/2019 12:53 PM CDT) WBC 7.93 4.30 - 11.10 [facility] 10*3/L [facility] RBC 5.09 3.93 - 5.25 [facility] 10*6/L [facility] HGB 14.6 11.6 - 15.0 g/dL [facility] HCT 44.0 35.7 - 45.2 % [facility] MCV 86.4 80.6 - 95.5 fL [facility] MCH 28.7 25.9 - 32.8 pg [facility] MCHC 33.2 31.6 - 35.1 g/dL [facility] RDW-SD 41.9 39.0 - 49.9 fL [facility] RDW-CV 13.2 12.0 - 15.5 % [facility] PLT 243 166 - 358 [facility] 10*3/L [facility] MPV 12.7 9.5 - 12.9 fL [facility] NRBC/100 WBC 0.0 0.0 - 10.0 /100 [facility] WBCs [facility] NRBC x10^3 <0.01 10*3/L [facility] GRAN MAT (NEUT) % 49.0 % [facility] IMM GRAN % 0.30 % [facility] LYMPH % 40.0 % [facility] MONO % 8.8 % [facility] EOS % 1.6 % [facility] BASO % 0.3 % [facility] GRAN MAT x10^3(ANC) 3.89 1.88 - 7.09 [facility] 10*3/uL [facility] IMM GRAN x10^3 <0.03 0.00 - 0.06 [facility] 10*3/uL HOSPITAL LAB[facility]ATORY LYMPH x10^3 3.17 1.32 - 3.29 [facility] 10*3/uL HOSPITAL [facility] MONO x10^3 0.70 0.33 - 0.92 [facility] 10*3/uL HOSPITAL LAB[facility]ORY EOS x10^3 0.13 0.03 - 0.39 [facility] 10*3/uL HOSPITAL [facility] BASO x10^3 <0.03 0.01 - 0.07 [facility] 10*3/uL [facility] Specimen Blood - ARM, LEFT Performing Organization Address City/State/Zipcode Phone Number [facility] CLIA: [id number], [address] [place] [address] COMP. METABOLIC PANEL (43050) (02/10/2019 12:53 PM CDT) NA 145 135 - 145 [facility] mmol/L [facility] K 4.4 3.5 - 5.0 [facility] mmol/L [facility] CL 105 98 - 108 mmol/L [facility] CO2 TOTAL 28 23 - 31 mmol/L [facility] AGAP 12 2 - 16 [facility] BUN 16 7 - 23 mg/dL [facility] GLUCOSE 95 70 - 110 mg/dL [facility] CREATININE 0.77 0.50 - 1.04 [facility] mg/dL [facility] TOTAL BILI 0.4 0.1 - 1.1 mg/dL [facility] CALCIUM 10.0 8.6 - 10.6 [facility] mg/dL [facility] T PROTEIN 8.3 (H) 6.3 - 8.2 g/dL [facility] ALBUMIN 4.9 3.5 - 5.0 g/dL [facility] ALK PHOS 81 34 - 122 U/L [facility] ALT(SGPT) 27 9 - 51 U/L [facility] AST(SGOT) 80 (H) 13 - 40 U/L [facility] eGFR Calculation 76.0 mL/min/1.73m2 [facility] ([facility] Niuean) eGFR Calculation 92.1 mL/min/1.73m2 [facility] () [facility] Specimen Blood - ARM, LEFT Narrative Performed At Association of Glomerular Filtration Rate (GFR) [facility] and Staging of Kidney Disease* + + +- + | GFR (mL/min/1.73 m2)| With Kidney Damage|Without Kidney Damage + + +- + |>90| Stage one| Normal + + +- + |60-89|S tage two| Decreased GFR + + +- + |30-59|S tage three| Stage three + + +- + |15-29|S tage four | Stage four + + +- + |<15 (or dialysis)|Stage five | Stage five + + +- + *Each stage assumes the associated GFR level has been in effect for at least three months.Stages 1 to 5, with or without kidney disease, indicate chronic kidney disease. Notes: Determination of stages one and two (with eGFR >59mL/min/1.73 m2) requires estimation of kidney damage for at least three months as defined by structural or functional abnormalities of the kidney, manifested by either: Pathological abnormalities or Markers of kidney damage (including abnormalities in the composition of the blood or urine or abnormalities in imaging tests). Performing Organization Address City/State/Zipcode Phone Number [facility] CLIA: [id number], [address] [place] [address] documented in this encounter Visit Diagnoses Diagnosis Rib pain on left side - Primary Chest pain, unspecified Flank pain Abdominal pain, unspecified site Acute cystitis without hematuria Acute cystitis Elevated liver enzymes Nonspecific elevation of levels of transaminase or lactic acid dehydrogenase ( LDH) documented in this encounter Insurance Payer Benefit Plan Subscriber ID Effective Dates Phone Address Type / Group [facility] [id number] 2016-Martha [phone] [address] PPO/POS [place] - OUT OF t 7 [id number] [place] [address] documented as of this encounter"
--- OUTSIDE RECORDS SUMMARY | 2019-02-14 23:51 | XMS REPORT | Summary of Care ---
:1955 Author Organization [facility] Address [address] [place] [address] Care Team Providers Name Role Phone Pasquale Cardenas MD Primary Care Provider Reason for Visit Reason Comments Results Encounter Details Date Type Department Care Team Description 02/11/2019 Telephone [facility] Family Medicine Pasquale Cardenas MD Results - [place] [address] [facility] [address] [place] [address] [place] [address] Allergies Active Allergy Reactions Severity Noted Date Comments Iodine Rash 09/30/2009 Nsaids (Non-Steroidal Other - See comments 08/23/2017 Severe abdominal pain Anti-Inflammatory Drug) Penicillins Rash 09/30/2009 Sulfur Shortness of Breath 09/30/2009 documented as of this encounter (statuses as of 02/13/2019) Medications Medication Sig Dispensed Refills Start Date End Date Status ESGIC-PLUS 50-500-40 1 tab prn 0 Active MG ORAL TAB migraines aspirin 81 mg EC Take 81 mg by 0 Active tabletIndications: TID mouth daily. in morning and night Indications: TID in morning and night azelastine 137 mcg Use 1 [place] in 30 mL 2 08/23/2017 Active (0.1 [...] as of this encounter (statuses as of 02/13/2019) Active Problems Problem Noted Date Nonintractable headache, unspecified chronicity pattern, unspecified 2017 headache type Pain of right hand 04/22/2018 Mass of hand, right 04/22/2018 Scalp mass 04/22/2018 Throat discomfort 08/15/2015 documented as of this encounter (statuses as of 02/13/2019) Immunizations Name Administration Dates Next Due Tdap [...] of this encounter Last Filed Vital Signs Not on filedocumented in this encounter Plan of Treatment Health Maintenance Due Date Last Done Comments [...] this topic documented as of this encounter Results Not on filedocumented in this encounter Insurance Payer Benefit Plan Subscriber ID Effective Dates Phone Address Type / Group [facility] [id number] 2016-Martha [phone] [address] PPO/POS [place] - OUT OF t 7 [id number] [place] [address] documented as of this encounter
--- OUTSIDE RECORDS SUMMARY | 2019-02-14 23:51 | XMS REPORT | Summary of Care ---
:1955 Author Organization [facility] [place] Address [address] [place] [address]- Encounter HQ Janneth(TIANA) [id number] Date(s): 04/01/18 - 04/01/18 [facility] [address] [place] [address]- [phone] Discharge Disposition: Home or Self Care Attending Physician: Janak Ayoub MD Referring Physician: Janak Ayoub MD Vital Signs Most recent to oldest [Reference Range]: 1 Height 157.48 cm (04/01/18 2:09 PM) Blood Pressure [90-140/60-90 mmHg] 139/91 mmHg (04/01/18 2:09 PM) Respiratory Rate [14-20 BRMIN] 16 BRMIN (04/01/18 2:09 PM) Peripheral Pulse Rate [60-100 bpm] 89 bpm (04/01/18 2:09 PM) Weight 68.636 kg (04/01/18 2:09 PM) Body Mass Index 27.68 m2 (04/01/18 2:09 PM) Problem List Condition Effective Dates Status [...]
--- OUTSIDE RECORDS SUMMARY | 2019-02-14 23:51 | XMS REPORT | Summary of Care ---
:1955 Author Organization [facility] Address [address] [place] [address] Care Team Providers Name Role Phone Pasquale Cardenas MD Primary Care Provider Reason for Referral Radiology Services (Routine) Status Reason Specialty Diagnoses / Referred By Referred To Procedures Contact Contact Closed Diagnostic Diagnoses Rib pain on left side Anene, Abby, Radiology Procedures XR RIBS 3 VW LEFT POLICY WRITER [address] [phone] Radiology Services (Routine) Status Reason Specialty Diagnoses / Referred By Referred To Procedures Contact Contact Closed Diagnostic Diagnoses Rib pain on left side Anene, Abby, Radiology Procedures XR RIBS 3 VW LEFT POLICY WRITER [address] [phone] Reason for Visit Radiology Services (Routine) Status Reason Specialty Diagnoses / Referred By Referred To Procedures Contact Contact Closed Diagnostic Diagnoses Rib pain on left side Anene, Abby, Radiology Procedures XR RIBS 3 VW LEFT POLICY WRITER [address] [phone] Encounter Details Date Type Department Care Team Description 02/10/2019 Hospital Encounter Critical access hospital Anene, Abby, POLICY WRITER Arrived [facility] [address] [address] [place], [place] [phone] Allergies Active Allergy Reactions Severity Noted Date Comments Iodine Rash 09/30/2009 Nsaids (Non-Steroidal Other - See comments 08/23/2017 Severe abdominal pain Anti-Inflammatory Drug) Penicillins Rash 09/30/2009 Sulfur Shortness of Breath 09/30/2009 documented as of this encounter (statuses as of 02/11/2019) Medications Medication Sig Dispensed Refills Start Date End Date Status ESGIC-PLUS 50-500-40 MG 1 tab prn 0 Active ORAL TAB migraines aspirin 81 mg EC Take 81 mg by 0 Active tabletIndications: TID mouth daily. in morning and night Indications: TID in morning and night azelastine 137 mcg (0.1 Use 1 [place] in 30 mL 2 08/23/2017 Active %) nasal each nostril 2 sprayIndications: Acute (two) times seasonal allergic daily. Use in rhinitis due to pollen each nostril as directed potassium chloride Take 1 tablet by 30 tablet 5 08/23/2017 Active (KLOR-CON 10) 10 mEq CR mouth daily. tabletIndications: Edema, unspecified type albuterol 90 Inhale [...] Active tabletIndications: BY MOUTH DAILY Edema, unspecified type NEEDED FOR SWELLING documented as of this encounter (statuses as of 02/11/2019) Active Problems Problem Noted Date Nonintractable headache, unspecified chronicity pattern, unspecified 2017 headache type Pain of right hand 04/22/2018 Mass of hand, right 04/22/2018 Scalp mass 04/22/2018 Throat discomfort 08/15/2015 documented as of this encounter (statuses as of 02/11/2019) Immunizations Name Administration Dates Next Due Tdap [...] encounter Procedures Procedure Name Priority Date/Time Associated Diagnosis Comments XR RIBS 3 VW LEFT Routine 02/10/2019 1:57 PM Rib pain on left Results for this CDT side procedure are in the results section. documented [...] Performing Organization Address City/State/Zipcode Phone Number PACS/VR/DOSE documented in this encounter Visit Diagnoses Diagnosis Rib pain on left side Chest pain, unspecified documented in this encounter Insurance Payer Benefit Plan Subscriber ID Effective Dates Phone Address Type / Group [facility] [id number] 2016-Martha [phone] [address] PPO/POS [place] - OUT OF t 7 [id number] [place] [address] ([address]) [place] [address] documented as of this encounter
--- OUTSIDE RECORDS SUMMARY | 2019-02-14 23:51 | XMS REPORT | Summary of Care ---
:1955 Author Organization [facility] - [facility] Address [address] [place] [address] Care Team Providers Name Role Phone Pasquale Cardenas MD Primary Care Provider Encounter Details Date Type Department Care Team Description 02/10/2019 Orders Only [facility] Doctor Unassigned, No [address] [facility] [place] [place] [address] [facility] [place] [address] Allergies Active Allergy Reactions Severity Noted Date Comments Iodine Rash 09/30/2009 Nsaids (Non-Steroidal Other - See comments 08/23/2017 Severe abdominal pain Anti-Inflammatory Drug) Penicillins Rash 09/30/2009 Sulfur Shortness of Breath 09/30/2009 documented as of this encounter (statuses as of 02/10/2019) Medications Medication Sig Dispensed Refills Start Date End Date Status ESGIC-PLUS 50-500-40 MG 1 tab prn 0 Active ORAL TAB migraines aspirin 81 mg EC Take 81 mg by 0 Active tabletIndications: TID mouth daily. in morning and night Indications: TID in morning and night azelastine 137 mcg (0.1 Use 1 [place] in 30 mL 2 08/23/2017 Active %) [...] as of this encounter (statuses as of 02/10/2019) Active Problems Problem Noted Date Nonintractable headache, unspecified chronicity pattern, unspecified 2017 headache type Pain of right hand 04/22/2018 Mass of hand, right 04/22/2018 Scalp mass 04/22/2018 Throat discomfort 08/15/2015 documented as of this encounter (statuses as of 02/10/2019) Social History Tobacco Use Types Packs/Day Years [...] filedocumented in this encounter Plan of Treatment Date Type Specialty Care Team Description 02/10/2019 Office Visit Family Medicine Abby Faria FNP [address] [place] [phone] Health Maintenance Due Date Last Done Comments HEPATITIS C (HCV) SCREEN 1955 DTaP,Tdap,and Td Vaccines (1 - 1975 Tdap) MAMMOGRAM 1996 COLONOSCOPY 2006 Zoster Recombinant Vaccine 2006 (SHINGRIX) (1 of 2) INFLUENZA VACCINE (#1) 2019 PNEUMOCOCCAL 0-64 YEARS COMBINED Aged Out No longer eligible based on SERIES patient's age to complete this topic documented as of this encounter Procedures Procedure Name Priority Date/Time Associated Diagnosis Comments ASSIGNMENT OF BENEFITS Routine 02/10/2019 11:55 AM CDT documented in this encounter Results Not on filedocumented in this encounter Insurance Payer Benefit Plan Subscriber ID Effective Dates Phone Address Type / Group [employer] [id number] 2016-Martha [phone] [address] PPO/POS [place] - OUT OF t 7 [id number] [place] [address] documented as of this encounter
--- OUTSIDE RECORDS SUMMARY | 2019-02-14 23:51 | XMS REPORT ---
:1955 [facility] Address [address] [place] [address] Care Team Providers Name Role Phone Unavailable Unavailable Unavailable Problems This patient has no known problems. Allergies, Adverse Reactions, Alerts This patient has no known allergies or adverse reactions. Medications This patient has no known medications.
--- OUTSIDE RECORDS SUMMARY | 2019-02-14 23:51 | XMS REPORT | Summary of Care ---
:1955 Author Organization [facility] - 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 Total of 1 attempts were made. Slight pressureand a bandage/ dressing were applied to the site(s). The patient experienced no complications. Specimens were sent processed to [facility] laboratories. Abby Mendez FNP - 02/10/2019 [...] mcg (0.1 %) nasal spray Use 1 [place] in each nostril 2 (two) times daily. [...] file Gets together: Not on file Attends protestant service: Not on file Active member of [...] of the visit time. If applicable, the [facility] database was accessed to review any controlled substance prescription claims data. The [employer] prescription claims data in [employer] was reviewed to assess patient compliance with the medication treatment plan. documented in this encounter Plan of Treatment Name Type Priority Associated Diagnoses Date/Time XR RIBS 3 VW LEFT IMAGING Routine Rib pain on left side 02/10/2019 1:46 PM CDT Name Type Priority Associated Diagnoses Order Schedule XR RIBS 3 VW LEFT IMAGING Routine Rib pain on left side Expected: 2018, Expires: 02/11/2020 CBC WITH DIFF LAB Routine Flank pain Ordered: 02/10/2019 URINALYSIS LAB Routine Flank pain Ordered: 02/10/2019 URINE CULTURE LAB Routine Flank pain Ordered: 02/10/2019 COMP. METABOLIC PANEL LAB Routine Flank pain Ordered: 02/10/2019 ([id number]) CBC WITH DIFFERENTIAL LAB Routine Flank pain Ordered: 02/10/2019 Health Maintenance Due Date Last Done Comments [...] Results Not on filedocumented in this encounter Visit Diagnoses Diagnosis Rib pain on left side - Primary Chest pain, unspecified Flank pain Abdominal pain, unspecified site documented in this encounter Insurance Payer Benefit Plan Subscriber ID Effective Dates Phone Address Type / Group BCBS [facility] [id number] 2016-Martha [phone] [address] PPO/POS [place] - OUT OF t 7 [id number] [place] [address] documented as of this encounter"
[2019-02-15 01:18] LABS: Absolute Lymphocytes (CBC) 2.7 K/uL (0.7-4.9); Basophils % 0.3 % (0-1.3); Hematocrit 40.2 % (36.0-45.0); Lymphocytes % 40.1 % (15.3-44.8); MPV 10.4 fL (7.6-11.3); RBC Red Blood Cell Count 4.67 M/uL (3.86-4.86)
[2019-02-15 01:21] LABS: Urine Blood TRACE (NEG); Urine Glucose NEGATIVE (NEG); Urine Protein NEGATIVE (NEG); Urine Specific Gravity 1.015 (1.005-1.030)
[2019-02-15 01:28] LABS: Urine Bacteria <20 /HPF (<20); Urine Culture Reflex Order REFLEXED; Urine RBC <5 /HPF (NONE SEEN)
[2019-02-15 01:29] LABS: ALT/SGPT 24 U/L (12-78); AST/SGOT 14 U/L (15-37); Albumin 3.9 g/dL (3.4-5.0); Alkaline Phosphatase 72 U/L (45-117); BUN Blood Urea Nitrogen 16 mg/dL (7-18); Bicarbonate 28 mmol/L (21-32); Bilirubin Direct < 0.1 mg/dL (0-0.2); Bilirubin Total 0.3 mg/dL (0.2-1.0); Glucose Level 103 mg/dL (74-106); Lipase 290 U/L (73-393); Potassium 3.7 mmol/L (3.5-5.1); Protein, Total 7.2 g/dL (6.4-8.2); Sodium Level 141 mmol/L (136-145)
--- NOTE | 2019-02-15 03:16 | ER ---
Nurse's Notes [facility] Name: Valorie Fairchild Age: 63 yrs Sex: Female : 1955 Arrival Date: 02/14/2019 Time: 23:52 Bed 4 Private MD: Diagnosis: Generalized abdominal pain Presentation: 02/15 00:09 Presenting complaint: Patient states: she has burning epigastric pain radiating to her bb umbilicus since before Labor Day, pt saw PCP and had labs done they said she had a UTI but the pain is not going away. Transition of care: patient was not received from another setting of care. Onset of symptoms was January 29, 2019. Risk Assessment: Do you want to hurt yourself or someone else? Patient reports no desire to harm self or others. Initial Sepsis Screen: Does the patient meet any 2 criteria? No. Patient's initial sepsis screen is negative. Does the patient have a suspected source of infection? No. Patient's initial sepsis screen is negative. Care prior to arrival: None. 00:09 Method Of Arrival: Ambulatory bb 00:09 Acuity: LA[place]ISHA 3 bb Historical: - Allergies: 00:13 IV contrast; bb 00:13 PENICILLINS; bb 00:13 Awwbtgv-Ksz-Hys Reductase Inhibitors; bb 00:13 Sulfa (Sulfonamide Antibiotics); bb 00:13 NSAIDS; bb 00:13 all pain meds; bb 00:13 food allergies; bb - Home Meds: 00:13 aspirin 81 mg Oral chew 2 tabs twice a day [Active]; Benadryl Oral [Active]; bb Multivitamin [Active]; - PMHx: 00:13 IBS; Migraines; bb - PSHx: 00:13 colonoscopy; Appendectomy; bb - Immunization history:: Adult Immunizations up to date. - Social history:: Smoking status: Patient/guardian denies using tobacco. - Ebola Screening: : No symptoms or risks identified at this time. Screenin:20 Abuse screen: Denies threats or abuse. Denies injuries from another. Nutritional rr5 screening: No deficits noted. Tuberculosis screening: No symptoms or risk factors identified. Fall Risk IV access (20 points). Total Torres Fall Scale indicates No Risk (0-24 pts). Assessment: 00:10 General: Appears in no apparent distress. comfortable, Behavior is calm, cooperative, rr5 appropriate for age. 00:10 Pain: Complains of pain in abdomen Pain radiates to umbilical area Pain currently is 6 rr5 out of 10 on a pain scale. Quality of pain is described as aching, Pain began gradually, Is intermittent. Neuro: Level of Consciousness is awake, alert, obeys commands, Oriented to person, place, time, situation, Appropriate for age. Cardiovascular: Capillary refill < 3 seconds Patient's skin is warm and dry. Respiratory: Airway is patent Respiratory effort is even, unlabored, Respiratory pattern is regular, symmetrical. GI: Abdomen is round Bowel sounds present X 4 quads. Abd is soft and non tender Reports lower abdominal pain, upper abdominal pain. : No signs and/or symptoms were reported regarding the genitourinary system. EENT: No signs and/or symptoms were reported regarding the EENT system. Derm: Skin is intact, Skin temperature is warm. Musculoskeletal: Circulation, motion, and sensation intact. Capillary refill < 3 seconds. 01:45 Reassessment: Patient appears in no apparent distress at this time. Patient is alert, rr5 oriented x 3, equal unlabored respirations, skin warm/dry/pink. send for CT scan. 02:50 Reassessment: Patient appears in no apparent distress at this time. Patient is alert, rr5 oriented x 3, equal unlabored respirations, skin warm/dry/pink. refused for pain medication. awaiting for CT result. 03:30 Reassessment: Patient appears in no apparent distress at this time. Patient is alert, rr5 oriented x 3, equal unlabored respirations, skin warm/dry/pink. review and reassess by ED provider ordered for admission. patient agreed for the plan of care. discharge instruction given and explained without complaints made. Vital Signs: 00:13 BP 157 / 94; Pulse 68; Resp 16 S; Temp 98.5(O); Pulse Ox 99% on R/A; Weight 65.77 kg bb (R); Height 5 ft. 2 in. (157.48 cm) (R); Pain 9/10; 01:08 BP 128 / 78; Pulse 67; Resp 17; Pulse Ox 99% on R/A; tl1 02:00 BP 121 / 75; Pulse 65; Resp 17; Pulse Ox 99% ; rr5 03:13 BP 133 / 75; Pulse 66; Resp 19; Pulse Ox 97% ; rr5 03:35 BP 144 / 79; Pulse 69; Resp 18; Temp 97.5; Pulse Ox 99% ; rr5 00:13 Body Mass Index 26.52 (65.77 kg, 157.48 cm) pennie ED Course: 02/14 23:52 Patient arrived in ED. cf2 02/15 00:11 Triage completed. bb 00:13 Arm band placed on Patient placed in waiting room, Patient notified of wait time. bb Family accompanied patient. 00:15 Patient has correct armband on for positive identification. Placed in gown. Bed in low rr5 position. Call light in reach. Side rails up X2. Pulse ox on. NIBP on. 00:21 Lupillo James PA is PHCP. jr8 00:21 Masood Ingram MD is Attending Physician. jr8 00:56 Urine collected: clean catch specimen, clear. lt1 00:56 Urine --Ancillary (enter results) Sent. lt1 00:57 Urine Dipstick--Ancillary (enter results) Sent. lt1 00:57 Urine Microscopic Only Sent. lt1 01:05 Inserted saline lock: 20 gauge in right antecubital area, using aseptic technique. rr5 Blood collected. 01:07 Alin Burgos, RN is Primary Nurse. rr5 01:08 EKG done, by ED staff. lt1 03:35 No provider procedures requiring assistance completed. rr5 03:35 IV discontinued, intact, bleeding controlled, No redness/swelling at site. Pressure rr5 dressing applied. 20:03 CT Abd/Pelvis - Without Contrast In Process Unspecified. EDMS Administered Medications: No medications were administered Outcome: 03:16 Discharge ordered by . jr8 03:35 Discharged to home ambulatory, with family. rr5 03:35 Condition: stable 03:35 Discharge instructions given to patient, Instructed on discharge instructions, follow up and referral plans. medication usage, Demonstrated understanding of instructions, follow-up care, medications, Prescriptions given X 1. 03:37 Patient left the ED. rr5 Signatures: Dispatcher [employer] EDMS Reyna Okeefe RN RN bb Lupillo James PA PA jr8 Carla Gabriel RN RN tl1 Alin Burgos RN RN rr5 Vanessa Frazier lt1 Erlinda Baxter cf2 Corrections: (The following items were deleted from the chart) : 01:06 BP 152 / 74; Pulse 93bpm; Resp 20bpm; Pulse Ox 93%; tl1 tl1
--- NOTE | 2019-02-15 03:17 | EDPHYS ---
Physician Documentation [facility] Name: Valorie Fairchild Age: 63 yrs Sex: Female : 1955 Arrival Date: 02/14/2019 Time: 23:52 Bed 4 Private MD: ED Physician Masood Ingram HPI: 02/15 00:50 This 63 yrs old Female presents to ER via Ambulatory with complaints of jr8 Abdominal Pain. 00:50 The patient presents with abdominal pain in the epigastric area, in the left upper jr8 quadrant, right lower quadrant. Onset: The symptoms/episode began/occurred 2 week(s) ago. The symptoms do not radiate. Associated signs and symptoms: Pertinent negatives: anorexia, blood in stools, chest pain, constipation, diarrhea, dysuria, fever, vomiting. The symptoms are described as burning, sharp. Modifying factors: The symptoms are alleviated by nothing, the symptoms are aggravated by nothing. Severity of pain: At its worst the pain was moderate in the emergency department the pain is unchanged. The patient has been recently seen by a physician: the patient's primary care provider, given RX for Cipro which she is on her last day of. Pt has been having abd pain for the last 2 weeks, seen by PCP, had blood work which showed mild elevation in AST and a negative abd Xray. given RX for cipro which she is due to complete tomorrow. Denies N/V/D. . Historical: - Allergies: 00:13 IV contrast; bb 00:13 PENICILLINS; bb 00:13 Rbguvyf-Zuu-Col Reductase Inhibitors; bb 00:13 Sulfa (Sulfonamide Antibiotics); bb 00:13 NSAIDS; bb 00:13 all pain meds; bb 00:13 food allergies; bb - Home Meds: 00:13 aspirin 81 mg Oral chew 2 tabs twice a day [Active]; Benadryl Oral [Active]; bb Multivitamin [Active]; - PMHx: 00:13 IBS; Migraines; bb - PSHx: 00:13 colonoscopy; Appendectomy; bb - Immunization history:: Adult Immunizations up to date. - Social history:: Smoking status: Patient/guardian denies using tobacco. - Ebola Screening: : No symptoms or risks identified at this time. ROS: 00:53 Constitutional: Negative for fever, chills, and weight loss, Eyes: Negative for injury, jr8 pain, redness, and discharge, ENT: Negative for injury, pain, and discharge, Neck: Negative for injury, pain, and swelling, Cardiovascular: Negative for chest pain, palpitations, and edema, Respiratory: Negative for shortness of breath, cough, wheezing, and pleuritic chest pain, : Negative for injury, bleeding, discharge, and swelling, MS/Extremity: Negative for injury and deformity, Skin: Negative for injury, rash, and discoloration, Neuro: Negative for headache, weakness, numbness, tingling, and seizure. 00:53 Abdomen/GI: Positive for abdominal pain, Negative for nausea, vomiting, diarrhea, hematemesis, bowel incontinence, acute changes. Exam: 00:53 Constitutional: This is a well developed, well nourished patient who is awake, alert, jr8 and in no acute distress. Head/Face: Normocephalic, atraumatic. Eyes: Pupils equal round and reactive to light, extra-ocular motions intact. Lids and lashes normal. Conjunctiva and sclera are non-icteric and not injected. Cornea within normal limits. Periorbital areas with no swelling, redness, or edema. ENT: Nares patent. No nasal discharge, no septal abnormalities noted. Tympanic membranes are normal and external auditory canals are clear. Oropharynx with no redness, swelling, or masses, exudates, or evidence of obstruction, uvula midline. Mucous membranes moist. Neck: Trachea midline, no thyromegaly or masses palpated, and no cervical lymphadenopathy. Supple, full range of motion without nuchal rigidity, or vertebral point tenderness. No Meningismus. Chest/axilla: Normal chest wall appearance and motion. Nontender with no deformity. No lesions are appreciated. Cardiovascular: Regular rate and rhythm with a normal S1 and S2. No gallops, murmurs, or rubs. Normal PMI, no JVD. No pulse deficits. Respiratory: Lungs have equal breath sounds bilaterally, clear to auscultation and percussion. No rales, rhonchi or wheezes noted. No increased work of breathing, no retractions or nasal flaring. 00:53 Abdomen/GI: Exam negative for distension, guarding, hepatomegaly, pulsatile mass, rectal bleed, Inspection: abdomen appears normal, Bowel sounds: normal, Palpation: soft, in all quadrants, moderate abdominal tenderness, in the epigastric area and left upper quadrant, Indicators: McBurney's point is not tender, Armstrong's sign is negative, Rovsing's sign is negative, Obturator sign is negative, Psoas sign is negative. Vital Signs: 00:13 BP 157 / 94; Pulse 68; Resp 16 S; Temp 98.5(O); Pulse Ox 99% on R/A; Weight 65.77 kg bb (R); Height 5 ft. 2 in. (157.48 cm) (R); Pain 9/10; 01:08 BP 128 / 78; Pulse 67; Resp 17; Pulse Ox 99% on R/A; tl1 02:00 BP 121 / 75; Pulse 65; Resp 17; Pulse Ox 99% ; rr5 03:13 BP 133 / 75; Pulse 66; Resp 19; Pulse Ox 97% ; rr5 03:35 BP 144 / 79; Pulse 69; Resp 18; Temp 97.5; Pulse Ox 99% ; rr5 00:13 Body Mass Index 26.52 (65.77 kg, 157.48 cm) MDM: 00:21 Patient medically screened. jr8 03:12 Data reviewed: vital signs, nurses notes, lab test result(s), radiologic studies, CT jr8 scan, and as a result, I will discharge patient. Data interpreted: Pulse oximetry: on room air is 99 %. Interpretation: normal. Counseling: I had a detailed discussion with the patient and/or guardian regarding: the historical points, exam findings, and any diagnostic results supporting the discharge/admit diagnosis, lab results, radiology results, the need for outpatient follow up, a family practitioner, to return to the emergency department if symptoms worsen or persist or if there are any questions or concerns that arise at home. 02/15 00:50 Order name: Basic Metabolic Panel 02/15 00:50 Order name: CBC with Diff 02/15 00:50 Order name: Creatinine for Radiology 8 02/15 00:50 Order name: Hepatic Function 02/15 00:50 Order name: Lipase jr8 02/15 00:50 Order name: Urine Microscopic Only jr8 02/15 00:55 Order name: Urine Dipstick--Ancillary (enter results) ar5 02/15 00:55 Order name: Urine --Ancillary (enter results) ar5 02/15 01:21 Order name: Urine --Ancillary; Complete Time: : [facility] 02/15 01:21 Order name: Urine Dipstick-Ancillary; Complete Time: [facility] 02/15 01:29 Order name: Creatinine (Radiology Only); Complete Time: [facility] 02/15 01:29 Order name: Urine Microscopic Only; Complete Time: [facility] 02/15 01:30 Order name: Basic Metabolic Panel; Complete Time: [facility] 02/15 01:30 Order name: Liver (Hepatic) Function; Complete Time: [facility] 02/15 00:50 Order name: IV Saline Lock; Complete Time: [facility] 02/15 00:50 Order name: Labs collected and sent; Complete Time: [facility] 02/15 00:56 Order name: EKG - Nurse/Tech; Complete Time: : [facility] 02/15 01:06 Order name: CT Abd/Pelvis - Without Contrast [facility] 02/15 01:30 Order name: Lipase; Complete Time: [facility] 02/15 01:31 Order name: CBC with Automated Diff; Complete Time: : [facility] Administered Medications: No medications were administered Disposition: 03:55 Co-signature as Attending Physician, Masood Ingram MD. rn Disposition: 02/15/19 03:16 Discharged to Home. Impression: Generalized abdominal pain. - Condition is Stable. - Discharge Instructions: Abdominal Pain, Adult. - Prescriptions for Bentyl 20 mg Oral Tablet - take 1 tablet by ORAL route every 6 hours As needed; 20 tablet. - Medication Reconciliation Form, Thank You Letter, Antibiotic Education, Prescription Opioid Use form. - Follow up: Private Physician; When: 2 - 3 days; Reason: Recheck today's complaints, Continuance of care, Re-evaluation by your physician. - Problem is new. - Symptoms have improved. Signatures: Dispatcher [employer] EDReyna Cortez RN RN Masood Moyer MD MD rn Roszak, Josh, PA PA jr8 Alin Burgos RN RN rr5 Corrections: (The following items were deleted from the chart) 03:37 03:16 02/15/2019 03:16 Discharged to Home. Impression: Generalized abdominal pain. rr5 Condition is Stable. Forms are Medication Reconciliation Form, Thank You Letter, Antibiotic Education, Prescription Opioid Use. Follow up: Private Physician; When: 2 - 3 days; Reason: Recheck today's complaints, Continuance of care, Re-evaluation by your physician. Problem is new. Symptoms have improved. jr8
[2019-02-15 03:50] VITALS: BP 144/79; TEMP 97.5; O2SAT 99
--- NOTE | 2019-02-16 11:36 | EKG ---
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
--- NOTE | 2019-02-16 12:13 | RAD REPORT ---
EXAM DESCRIPTION: CT Abdomen and Pelvis Without Intravenous Contrast CLINICAL HISTORY: The patient is 63 years old and is Female; ABD PAIN TECHNIQUE: Axial computed tomography images of the abdomen and pelvis without intravenous contrast. Sagittal and coronal reformatted images were created and reviewed. This CT exam was performed usi ng one or more of the following dose reduction techniques: automated exposure control, adjustment o f the mA and/or kV according to patient size, and/or use of iterative reconstruction technique. COMPARISON: No relevant prior studies available. FINDINGS: LUNG BASES: Unremarkable. No mass. No consolidation. ABDOMEN: LIVER: Homogeneous without focal mass. GALLBLADDER AND BILE DUCTS: No calcified stones. No ductal dilation. PANCREAS: Unremarkable. No ductal dilation. SPLEEN: Unremarkable. ADRENALS: Unremarkable. No mass. KIDNEYS AND URETERS: No obstructing stones. No hydronephrosis. No perinephric fluid. STOMACH AND BOWEL: The stomach is minimally distended with food contents. The small bowel is rel atively normal in caliber. A moderate amount stool is present throughout the colon. There is no mucos al thickening or evidence of bowel obstruction. PELVIS: APPENDIX: The appendix is surgically absent. BLADDER: Unremarkable. No stones. REPRODUCTIVE: The patient is status post hysterectomy. ABDOMEN and PELVIS: INTRAPERITONEAL SPACE: Unremarkable. No free air. No significant fluid collection. BONES/JOINTS: Minimal degenerative change of the bones is present. SOFT TISSUES: The soft tissues are normal. VASCULATURE: Atherosclerosis of the aorta is present. No abdominal aortic aneurysm. LYMPH NODES: Unremarkable. No enlarged lymph nodes. IMPRESSION: No acute findings on this noncontrasted CT of the abdomen and pelvis to explain the maximo ent's symptoms. Electronically signed by: Trish Wade MD 02/15/2019 2:57 AM CDT Due to temporary technical issues with the PACS/Fluency reporting system, reports are being signed by the in house radiologist as a courtesy to ensure prompt reporting. The interpreting radiologist is f nilsonly responsible for the content of the report.
== END 2019-02-15 03:37 | disposition home or self-care (01) ==
LOC: ER 23:47
DX: R10.84 Generalized abdominal pain (principal); K58.9 Irritable bowel syndrome, unspecified; Z79.82 Long term (current) use of aspirin; Z88.0 Allergy status to penicillin; Z88.2 Allergy status to sulfonamides; Z88.6 Allergy status to analgesic agent; Z88.8 Allergy status to other drugs, medicaments and biological substances; Z91.018 Allergy to other foods; Z91.041 Radiographic dye allergy status
CPT/HCPCS: 36415; 74176; 80048; 80076; 81003; 81015; 81025; 83690; 85025; 87086; 87088; 93005; 99284

== ENCOUNTER 2019-10-28 16:36 | Emergency (ER) | payer BC ==
--- OUTSIDE RECORDS SUMMARY | 2019-10-28 17:26 | XMS REPORT | Summary of Care ---
:1955 Author Organization [facility] [place] Address [address] [place] [address]- Encounter HQ Garretntr_kori(FIN) [id number] Date(s): 08/19/19 - 08/19/19 [facility] [address] [place] [address]- [phone] Attending Physician: Janak Ayoub MD Referring Physician: Janak Ayoub MD Vital Signs No data available for this section Problem List Condition Effective Dates Status Health Status Informant Chronic constipation(Confirmed) Resolved Constipation(Confirmed) Active Bilateral breast cysts(Confirmed) Resolved History of IBS(Confirmed) Resolved Hyperlipidemia(Confirmed) Active Eye lesion(Confirmed) Active Migraines(Confirmed) Active Paresthesias(Confirmed) Active Vertigo(Confirmed) Active Allergies, Adverse Reactions, Alerts Substance Reaction Severity Status penicillins Active sulfa drugs unknown Severe Active naproxen Active morphine Active Zomig Active Demerol HCl Active NSAIDs Active statins Active contrast media (iodine-based) Ac tive Medications No data available for this section Results No data available for this section Immunizations No data available for this section Procedures Procedure Date Related Diagnosis Body Site Status Appendectomy Completed Excision of cyst of breast C ompleted Total hysterectomy Completed Social History Social History Type Response Alcohol Current, Type Liquor. Frequ ency: 1-2 times per month. Smoking Status Never smoker; Ready to jaimes e: No; Concerns about tobacco use in household: No; Exposure to Tobacco Smoke None; Exposure to Tobacco Smoke Unable to obtain; Cigarette Smoking Last 365 Days Unable to obtain; Reg Smoking Cessation Counseling No entered on: 04/15/19 Assessment and Plan No data available for this section
--- OUTSIDE RECORDS SUMMARY | 2019-10-28 17:26 | XMS REPORT | Continuity of Care Document ---
:1955 Author Organization [facility] Care Team Providers Name Role Phone [facility] Unavailable Un available Problems Problem Status Onset Classification Date Comments Sourc e Date Reported BDDC- ABD PAIN, Active 12/06/19 [place] BLOATING, IBS, 17 Medic al NAUSEA, E Center BDDC- ABD Active 12/06/19 [facility] FULLNESS R19.8; 17 [facility] GASTROPARESIS Center CONSULT Active 10/27/[address] Chronic Resolved Problem 08/21/2019 [facility] constipation Neuro,M H (disorder) [facility] Constipation Active Problem 08/21/2019 [facility] r (disorder) Neuro,[facility] Cyst of breast Resolved Problem 08/21/2019 [facility] (disorder) Neuro,[facility] History of Resolved Problem 08/21/2019 [facility] irritable bowel Neur o, syndrome [place] (situation) [facility] Hyperlipidemia Active Problem 08/21/2019 [facility] (disorder) Neuro Lesion of eye Active Problem 08/21/2019 [facility] structure Neuro, (finding) [facility] Migraine Active Problem 08/21/2019 [facility] (disorder) [facility] Paresthesia Active Problem 08/21/2019 [facility] (finding) Neuro Vertigo (finding) Active Problem 08/21/2019 [facility] Medications Medication Details Route Status Patient Ordering Order Source Instructions Provider Date Docusate Sodium 200 mg = 2 Active [place] 100 MG Oral cap, PO, 017 Medical Capsule Daily, with [place] plenty of water take at bedtime, # 60 cap, 1 Refill(s), Pharmacy: [facility] 256 Ascorbic Acid See Active [facility] 4.7 MG/ML / Instructions 017 Medical POLYETHYLENE , as Center GLYCOL 3350 100 directed in MG/ML / clinic, # 1 Potassium ea, 0 Chloride 0.0136 Refill(s), MEQ/ML / Sodium Pharmacy: [facility] 5.[facility] MG/ML / Sodium [facility] Chloride 0.046 256 MEQ/ML / sodium sulfate 7.5 MG/ML Oral Solution [MoviPrep] Benadryl 0 Refill(s) Active [address] Aspirin 81 MG 81 mg = 1 Active [facility] Chewable Tablet tab, PO, 017 Medical TID, 0 Center Refill(s) Allergies, Adverse Reactions, Alerts Substance Category Reaction Severity Reaction Status Date Comments S ource type Reported penicillins Assertion Drug Active [facility] ste[facility]ie allergy Neuro sulfa drugs Assertion unknown Severe Drug Active [facility] stephanie allergy Neuro naproxen Assertion Drug Active Misch er allergy Neuro morphine Assertion Drug Active Misch er allergy Neuro Zomig Assertion Drug Active Mische r allergy Neuro Demerol HCl Assertion Drug Active [facility] stephanie allergy Neuro NSAIDs Assertion Drug Active [facility] r allergy Neuro statins Assertion Drug Active [facility] r allergy Neuro contrast Assertion Drug Active Misch er media allergy Neuro (iodine-based ) Immunizations No [...] Value Date Comments Source Systolic (mm Hg) 127 04/15/2019 [facility] ro Diastolic (mm Hg) 98 04/15/2019 [facility] Ne uro Heart Rate 75 04/15/2019 [facility] Neuro Respitory Rate 16 04/15/2019 [facility] Neuro Height 157.48 cm 04/15/2019 [facility] Neuro Weight 66.818 04/15/2019 [facility] Neuro BMI Calculated 26.94 04/15/2019 [facility] Neuro Systolic (mm Hg) 123 03/24/2019 [facility] Yusuf ro Diastolic (mm Hg) 85 03/24/2019 [facility] Ne uro Heart Rate 74 03/24/2019 [facility] Neuro Respitory Rate 16 03/24/2019 [facility] Neuro Height 165.1 cm 03/24/2019 [facility] Neuro Weight 65.909 03/24/2019 [facility] Neuro BMI Calculated 24.18 03/24/2019 [facility] Neuro Systolic (mm Hg) 132 01/21/2019 [facility] Yusuf ro Diastolic (mm Hg) 82 01/21/2019 [facility] Ne uro Heart Rate 77 01/21/2019 [facility] Neuro Respitory Rate 16 01/21/2019 [facility] Neuro Height 157.48 cm 01/21/2019 [facility] Neuro Weight 65.909 01/21/2019 [facility] Neuro BMI Calculated 26.58 01/21/2019 [facility] Neuro BMI Calculated 27.68 04/01/2018 [facility] Neuro Weight 68.636 04/01/2018 [facility] Neuro Height 157.48 cm 04/01/2018 [facility] Neuro Systolic (mm Hg) 139 04/01/2018 [facility] Yusuf ro Diastolic (mm Hg) 91 04/01/2018 [facility] Ne uro Heart Rate 89 04/01/2018 [facility] Neuro Respitory Rate 16 04/01/2018 [facility] Neuro Weight 68.182 12/05/2016 [facility] BMI Calculated 27.05 12/05/2016 [facility] Height 158.75 cm 12/05/2016 [facility] Heart Rate 66 12/05/2016 [facility] Respitory Rate 16 12/05/2016 [facility] Systolic (mm Hg) 127 12/05/2016 [facility] Diastolic (mm Hg) 80 12/05/2016 [facility] Encounters Location Location Encounter Encounter Reason Attending ADM DC Stat us Source Details Type Number For Provider Date Date Visit [facility] [id number] Catia Haywood 12/05 12/06 [facility] /2016 [facility] Center Outpatient [id number] ISMAEL 02/18 [facility] [place] Outpatient [id number] ISMAEL 04/01 [facility] [facility] Outpatient [id number] Ismael 04/01 04/02 [facility] /2017 [facility] MNA Outside [id number] 06/12 06/14 [facility] /2018 [facility] Records Outpatient [id number] ISMAEL 07/23 Active [facility] [place] Outpatient [id number] Ismael 01/21 Active [facility] [place] MNA Outpatient [id number] Ismael 01/21 01/22 [facility] /2018 [facility] [place] Outpatient [id number] Ismael 03/24 Active [facility] [place] [facility]NA Outpatient [id number] Ismael 03/24 03/25 [facility] /2018 [facility] [place] Outpatient [id number] Ismael 04/15 Active [facility] [place] MNA Outpatient [id number] Ismael 04/15 04/16 [facility] [place] Outpatient [id number] Ismael 04/23 Active [facility] [place] M[facility] Ambulatory [id number] Ismael 04/23 04/23 [facility] Pre-Reg [facility] [place] Outpatient [id number] Ismael 08/18 Active [facility] [place] [facility] Ambulatory [id number] Ismael 08/18 08/18 [facility] Pre-Reg [facility] [place] Outpatient [id number] Ismael 01/19 Active [facility] [place] Procedures Procedure Code Date Perfomer Comments Source Appendectomy [id number] [facility] Neur o Excision of cyst of [id number] [facility] breast Neuro[id number] Assessment and Plan No Data Provided for This Section Plan of Care No Data Provided for This Section Social History Social History Date Source Social History TypeResponse 12/05/2016 [facility] Alcohol Current, Type Liquor. Frequency: 1-2 times per month. Smoking Status Never smoker; Ready to change: No; Rhonda rns about tobacco use in household: No; Exposure to Tobacco Smoke None; Exposure to Tobacco Smoke Unable to obtain; Cigarette Smoking Last 365 Days Unable to obtain; Reg Smoking Cessation Counseling No entered on: 04/15/19 Social History TypeResponse 12/05/2016 [facility] Alcohol Current, Type Liquor. Frequency: 1-2 times per month. Smoking Status Never smoker; Ready to change: No; Rhonda rns about tobacco use in household: No; Exposure to Tobacco Smoke None; Cigarette Smoking Last 365 Days No; Reg Smoking Cessation Counseling No Family History No Data Provided for This Section Advance Directives No Data Provided for This Section Functional Status No Data Provided for This Section
--- OUTSIDE RECORDS SUMMARY | 2019-10-28 17:27 | XMS REPORT ---
:1955 Author Organization [facility] t Address [address] [place] [address] Care Team Providers Name Role Phone Ronald HAMPTON Attending Clinician Nba Ayoub Attending Clinician Fredy Haywood Attending Clinician Problems Condition Condition Condition Status Onset Resolution Last Treating Co mments Source Name Details Category Date Date Treatment Clinician Date BDDC- ABD Diagnosis Active 2017-01-28 PAIN, 12-05 15:15:00 [place] BLOATING, BDDC- 00:00: Medica l IBS, ABD PAIN, 00 [place] NAUSEA, E BLOATING, IBS, NAUSEA, E Active 12/05/2016 [facility] BDDC- ABD Diagnosis Active 2016-12-14 FULLNESS 12-05 08:44:00 [place] R19.8; BDDC- 00:00: Medical GASTROPARE ABD 00 Center SIS FULLNESS R19.8; GASTROPARE SIS Active 12/05/2016 [facility] CONSULT Diagnosis Active 2016-12-05 10-26 11:17:00 [place] CONSULT 00:00: Medical 00 Center Active 10/26/2016 [facility] Chronic Problem Resolve 2019-08-21 Mis mauricio constipati d 21:49:23 Neur o, on Chronic [place]disorder[place] [facility] [place] Center Resolved Problem 08/21/2019 [facility] [place] [facility] Constipati Problem Active 2019-08-21 M ischer on 21:49:23 Neuro, (disorder) MH Constipati [place] on Medical (disorder) Center Active Problem 08/21/2019 [facility] Cyst of Problem Resolve 2019-08-21 Mis mauricio breast d 21:49:23 Neuro, (disorder) Cyst of breast [place] (disorder) Medica l Center Resolved Problem 08/21/2019 [facility] 21:[facility]23 Neuro , bowel History syndrome of [place] (situation irritable Med ical ) bowel Center syndrome (situation ) Resolved Problem 08/21/2019 [facility] Hyperlipid Problem Active 2019-08-21 M ischer emia 21:49:23 Neuro (disorder) Hyperlipid emia (disorder) Active Problem 08/21/2019 [facility] Lesion of Problem Active 2019-08-21 Mi stephanie eye 21:49:23 Neuro, structure Lesion (finding) of eye [facility] (finding) Center Active Problem 08/21/2019 [facility] Migraine Problem Active 2019-08-21 Mis mauricio (disorder) 21:49:23 Neur o, Migraine (disorder) [facility] [place] Active Problem 08/21/2019 [facility] Paresthesi Problem Active 2019-08-21 M ischer a 21:49:23 Neuro (finding) Paresthesi a (finding) Active Problem 08/21/2019 [facility] Vertigo Problem Active 2019-08-21 Misc her (finding) 21:49:23 Neuro Vertigo (finding) Active Problem 08/21/2019 [facility] Allergies, Adverse Reactions, Alerts Allergy Allergy Status Severity Reaction(s) Onset Inactive Treating Comm ents Source Name Type Date Date Clinician penicill penicill Active Memori a ins ins l [facility] [place] [facility] l sulfa sulfa Active Severe Memoria drugs drugs l [facility] l naproxen naproxen Active Memori a l [facility] l morphine morphine Active Memori a l [facility] Zomig Zomig Active Memoria l [facility] Demerol Demerol Active Memoria HCl HCl l [facility] l NSAIDs NSAIDs Active Memoria l [facility] l statins statins [facility] contrast Active Memori a media media l (iodine- (iodine- Neftali n based) based) [facility] l Social History Social Habit Start Date Stop Date Quantity Comments Source Social History 2016-12-05 2016-12-05 [facility] Sebastian roca 16:26:17 16:26:17 [facility] Medications Ordered Filled Start Stop Current Ordering Indication Dosage Frequency Signature Comments Components Source Medication Medication Date Date Medication? Clinician (SIG) Name Name Docusate Yes 200 mg = 2 MH Sodium 100 7-05 cap, PO, [place] MG Oral 17:40: Daily, Medical Capsule 00 with Center plenty of water take at bedtime, # 60 cap, 1 Refill(s), Pharmacy: [facility] 256 Ascorbic Yes See MH Acid 4.7 7-05 Instructio [place] MG/ML / 17:32: ns, as Medical POLYETHYLEN 00 directed Cent er E GLYCOL in clinic, 3350 100 # 1 ea, 0 MG/ML / Refill(s), Potassium Pharmacy: [facility] MEQ/ML / 256 Sodium Ascorbate 5.9 MG/ML / Sodium Chloride 0.046 MEQ/ML / sodium sulfate 7.5 MG/ML Oral Solution [MoviPrep] Benadryl Yes 0 MH 7-05 Refill(s) [place] 16:26: Medical 00 Center Aspirin 81 Yes 81 mg = 1 MH MG Chewable 7-05 tab, PO[place] Tablet 16:26: TID, 0 Medical 00 Refill(s) Center Vital Signs Vital Name Observation Time Observation Value Comments Source Systolic (mm Hg) 2019-04-15 14:35:00 Misc her Neuro Diastolic (mm Hg) 2019-04-15 14:35:00 Mis mauricio Neuro Heart Rate 2019-04-15 14:35:00 [facility] Respitory Rate 2019-04-15 14:35:00 M[facility] r Neuro Height 2019-04-15 14:35:00 157.48 cm [facility] Weight 2019-04-15 14:35:00 [facility] BMI Calculated 2019-04-15 14:35:00 [facility] Neuro Systolic (mm Hg) 2019-03-24 14:45:00 Misc her Neuro Diastolic (mm Hg) 2019-03-24 14:45:00 Mis mauricio Neuro Heart Rate 2019-03-24 14:45:00 [facility] Respitory Rate 2019-03-24 14:45:00 [facility] Neuro Height 2019-03-24 14:45:00 165.1 cm [facility] Weight 2019-03-24 14:45:00 [facility] BMI Calculated 2019-03-24 14:45:00 M[facility] Neuro Systolic (mm Hg) 2019-01-21 18:18:00 Misc her Neuro Diastolic (mm Hg) 2019-01-21 18:18:00 Mis mauricio Neuro Heart Rate 2019-01-21 18:18:00 [facility] Respitory Rate 2019-01-21 18:18:00 [facility] Height 2019-01-21 18:18:00 157.48 cm [facility] Weight 2019-01-21 18:18:00 [facility] BMI Calculated 2019-01-21 18:18:00 [facility] Neuro BMI Calculated 2018-04-01 19:09:00 [facility] Weight 2018-04-01 19:09:00 [facility] Height 2018-04-01 19:09:00 157.48 cm [facility] Systolic (mm Hg) 2018-04-01 19:09:00 Misc her Neuro Diastolic (mm Hg) 2018-04-01 19:09:00 Mis mauricio Neuro Heart Rate 2018-04-01 19:09:00 [facility] Respitory Rate 2018-04-01 19:09:00 M[facility] Neuro Weight 2016-12-05 16:14:00 [facility] BMI Calculated 2016-12-05 16:14:00 [facility] Height 2016-12-05 16:14:00 158.75 cm [facility] Heart Rate 2016-12-05 16:14:00 [facility] Respitory Rate 2016-12-05 16:14:00 [facility] Systolic (mm Hg) 2016-12-05 16:14:00 [facility] Center Diastolic (mm Hg) 2016-12-05 16:14:00 [facility] Procedures Procedure Date / Time Performed Performing Clinician Sour e Appendectomy [facility] Excision of cyst of [facility], MH breast [facility] [place] Total hysterectomy [facility] , [facility] Encounters Start End Encounter Admission Attending Care Care Encounter Source Date/Time Date/Time Type Type Clinicians Facility Department ID 2020-01-20 2020-01-20 Outpatient MHIEALT MHIEALT [id number] Memoria 13:15:00 13:15:00 04 blaine Connelly 2019-10-28 2019-10-28 Telephone Ronald WAPEDRO [id number] 00:00:00 00:00:00 [facility] [id number] [place] [id number] Professio [phone] [place] [address] 2019-09-15 2019-09-15 Chuck Cardenas [facility] [id number] 00:00:00 00:00:00 [facility] [id number] [place] [id number] Professio [phone] [place] [address] 2019-08-24 2019-08-24 Patient Ronald [facility] [id number] 00:00:00 00:00:00 Secure Msg [facility] [id number] [place] [id number] Professio [phone] [place] [address] 2019-08-24 2019-08-24 Chuck Cardenas [facility] [id number] 00:00:00 00:00:00 [facility] [id number] [place] [id number] Professio [phone] [place] [address] 2019-08-19 2019-08-19 Ambulatory MHIEALT MNA [id number] Mischer 18:15:00 18:15:00 Pre-Reg Neurology 08 Neur o [place] 2019-08-19 2019-08-19 Outpatient MHIEALT MHIEALT [id number] Memoria 13:15:00 13:15:00 08 blaine [address] 2019-08-19 2019-08-19 Outpatient TRISTON AyoubSCHSUE MHMISCHER [id number] 13:15:00 13:15:00 Janak Arango 2019-04-23 2019-04-23 Ambulatory MHIEALT MNA [id number] [facility]ischer 21:30:00 21:30:00 Pre-Reg Neurology 06 Neur o [place] 2019-04-23 2019-04-23 Outpatient MHIEALT MHIEALT [id number] Memoria 15:30:00 15:30:00 06 blaine [address] 2019-04-23 2019-04-23 Outpatient Anitra, AMINATAMISCHER MHMISCHER [id number] 15:30:00 15:30:00 Janak 06 Nba 2019-04-15 2019-04-16 Outpatient MHIEALT MNA [id number] Mischer 14:30:00 05:59:59 Neurology 07 Neur o [place] 2019-04-15 2019-04-15 Outpatient Anitra, MHMISCHER MHMISCHER [id number] 08:30:00 23:59:59 Janak 07 Nba 2019-04-15 2019-04-15 Outpatient MHIEALT MHIEALT [id number] Memoria 08:30:00 08:30:00 07 blaine [address] 2019-03-24 2019-03-25 Outpatient MHIEALT MNA [id number] Mischer 14:00:00 04:59:59 Neurology 05 Neur o [place] 2019-03-24 2019-03-24 Outpatient Anitra, MHMISCHER MHMISCHER [id number] 09:00:00 23:59:59 Janak 05 Nab 2019-03-24 2019-03-24 Outpatient MHIEALT MHIEALT [id number] Memoria 09:00:00 09:00:00 05 blaine [address] 2019-01-21 2019-01-22 Outpatient MHIEALT MNA [id number] Mischer 18:15:00 04:59:59 Neurology 03 Neur o [place] 2019-01-21 2019-01-21 Outpatient Anitra, MHMISCHER MHMISCHER [id number] 13:15:00 23:59:59 Janak 03 Nba 2019-01-21 2019-01-21 Outpatient MHIEALT MHIEALT [id number] Memoria 13:15:00 13:15:00 03 blaine [address] 2018-07-23 2018-07-23 Outpatient MHIEALT MHIEALT [id number] Memoria 13:00:00 13:00:00 02 blaine Connelly 2018-06-12 2018-06-14 Outside MHIEALT MNA [id number] [facility] 21:33:00 05:59:59 Medical Neurology 00 Neur o Records [place] 2018-06-12 2018-06-13 Outpatient MHMISCHER MHMISCHER [id number] 15:33:00 23:59:59 00 2018-04-01 2018-04-02 Outpatient MHIEALT MNA [id number] Mischer 19:00:00 04:59:59 Neurology 01 Neur o [place] 2018-04-01 2018-04-01 Outpatient Anitra, MHMISCHER MHMISCHER [id number] 14:00:00 23:59:59 Janak 01 Nba 2018-04-01 2018-04-01 Outpatient MHIEALT MHIEALT [id number] Memoria 14:00:00 14:00:00 01 blaine Connelly 2018-02-18 2018-02-18 Outpatient MHIEALT MHIEALT [id number] Memoria 13:15:00 13:15:00 00 blaine Connelly 2016-12-05 2016-12-06 Outpatient MHIEALT [facility] [id number] 16:04:00 04:59:00 [place] 00 [facility] 2016-12-05 2016-12-05 Outpatient Catia Haywood [facility] [id number] 11:04:00 23:59:00 Godfrey 00 Results This patient has no known results.
--- OUTSIDE RECORDS SUMMARY | 2019-10-28 17:27 | XMS REPORT | Summary of Care ---
:[address] [facility] Address [address] [place] [id number] Care Team Providers Name Role Phone MD Ronald Primary Care Provider Reason for Referral (Routine) Status Reason Specialty Diagnoses / Referred By Referred To Procedures Contact Contact New Request Patient is Otolaryngology Diagnoses Thyroid cyst Fiordaliza, Established with Procedures CONSULT/REFERRAL ENT KELLI Jones a Specific [address] [facility] [place] [address] (Routine) Status Reason Specialty Diagnoses / Referred By Referred To Procedures Contact Contact New Request Obstetrics & Diagnoses Well woman exam Melvi Mancera Gynecology Procedures CONSULT/REFERRAL PLAQUE MAKER KELLI Carbajal [address] [facility] [address] Reason for Visit Reason Comments Thyroid Problem LAB WORK Encounter Details Date Type Department Care Team Description 07/31/2019 Office Visit [facility] Family Melvi Mancera Dark urine (Primary Dx); [facility] Thyroid cyst; [facility] [address] [facility] Hair loss; [place], [place] Overweight (BMI 25.0-29.9); [id number] Well woman exam [phone] Allergies Active Allergy Reactions Severity Noted Date Comments Iodine Rash 09/30/2009 Nsaids (Non-Steroidal Other - See comments 08/23/2017 Severe abdominal pain Anti-Inflammatory Drug) Penicillins Rash 09/30/2009 Sulfur Shortness of Breath 09/30/2009 documented as of this encounter (statuses as of 07/31/2019) Medications Medication Sig Dispensed Refills Start End Date Status Date ESGIC-PLUS 50-500-40 1 tab prn 0 Active MG ORAL TAB migraines aspirin 81 mg EC Take 81 mg by 0 Active tabletIndications: mouth daily. TID in morning and Indications: night TID in morning and night azelastine 137 mcg Use 1 [place] in 30 mL 2 Active (0.1 %) nasal each nostril 2 8 sprayIndications: (two) times Acute seasonal daily. Use in allergic rhinitis each nostril due to pollen as directed potassium chloride Take 1 tablet 30 tablet 5 Active (KLOR-CON 10) 10 mEq by mouth 8 CR daily. tabletIndications: Edema, unspecified type albuterol 90 Inhale 2 Puffs 8.5 g 12 Ac tive mcg/actuation every 6 (six) 8 inhalerIndications: hours as Asthma, unspecified needed for asthma severity, Wheezing or unspecified whether Shortness of complicated, Breath. unspecified whether persistent diphenhydramine HCl Take by 0 Active (BENADRYL ALLERGY mouth. ORAL) LASIX 20 mg TAKE ONE 30 tablet 4 Active tabletIndications: TABLET BY 9 Edema, unspecified MOUTH DAILY type NEEDED FOR SWELLING ammonium lactate 12 Apply BID as 140 g 1 Active % creamIndications: needed for dry 9 Xeroderma skin omeprazole 20 mg Take 20 mg by 0 Active capsule mouth daily. 9 linaCLOtide Take by 0 Active (LINZESS) 145 mcg mouth. capsule brompheniramine-pseu Take 5 mL by 175 mL 0 Discontinued doephedrine-DM mouth 4 (four) 0 20 (Therapy (BROMFED DM) 2-30-10 times daily as completed) mg/5 mL needed for syrupIndications: Congestion/All Viral upper ergies or respiratory tract Cough. infection with cough documented as of this encounter (statuses as of 07/31/2019) Active Problems Problem Noted Date Nonintractable headache, unspecified chronicity patter n, unspecified 04/22/2018 headache type Pain of right hand 04/22/2018 Mass of hand, right 04/22/2018 Scalp mass 04/22/2018 Throat discomfort 08/15/2015 documented as of this encounter (statuses as of 07/31/2019) Immunizations Name Administration Dates Next Due Tdap [...] Sign Reading Time Taken Comments Blood Pressure 122/70 07/31/2019 8:35 AM CARBON PRINTER Pulse 68 07/31/2019 8:05 AM CARBON PRINTER Temperature 36.2 C (97.2 F) 07/31/2019 8:05 AM CARBON PRINTER Respiratory Rate - - Oxygen Saturation 97% 07/31/2019 8:05 AM CARBON PRINTER Inhaled Oxygen Concentration - - Weight 66.2 kg (146 lb) 07/31/2019 8:05 AM CARBON PRINTER Height - - Body Mass Index 26.7 06/08/2019 2:01 PM CARBON PRINTER documented in this encounter Progress Notes Brynn Brown - 07/31/2019 8:00 AM CST Venipuncture collection performed by clean technique on the left anticubitus. Total of 1 attempts were made. Slight pressure and a bandage/dressing were applied to the site(s). The patient experienced no complications. The following specimens were processed according to instructions and sent to [facility] laboratories per lab order on 07/31/19: LT BLUE SST RED LAV PPT DK GREEN (LiHep) DK GREEN (SodH) WALKER DK BLUE (K2) DK BLUE (S) ACD Blood Culture NIPT/NTD Melvi Jean PA - 07/31/2019 8:00 AM CST Cc: Chief Complaint Patient presents with Thyroid Problem Valorie Elza Gurinder is a 64 year old female. Patient here with concerns of darker colored urine Duration: 6 months She had negative urine testing including negative culture when it started. Color: carlos 5-6 bottles daily of water Pmh of renal stones. No pmh of renal cyst, cancer. No smoking hx. Hx of hepatitis: none. Reports possible exposure to HCV about 20 years ago. Unsure if screening before No dysuria, frequency, urgency, hematuria, flank pain No f/c, weight loss No abdominal pain, n/v/d Thyroid cyst Patient Thyroid u/s on 04/09/[address] Cardenas finding small 3 x 2 mm cyst in the upper medial R lobe near ishtmus. No solid mass. She then saw ENT, Dr. Vasquez, for further evaluation. Reports being told everything was okay. Monitored. Would like to have thyroid labs done. Reports FHx of thyroid disease maternal aunt, niece. Yesterday felt like maybe her thyroid was sore for a little bit. This has since resolved. No changes in size. No color changes. No goiter + hair loss No heat/cold intolerance No polydipsia, polyphagia, polyuria No weight gain or loss Overweight Patient would like DM screening to make sure she is okay Am- eggs, cheerios Lunch- left overs Dinner- chicken, fish, steamed veggies Exercise- none Water: 5-6 bottles Allergies Valorie is allergic to iodine; nsaids (non-steroidal anti-inflammatory drug); pcn [penicillins]; andsulfur. Medications Current Outpatient Medications Medication Sig Dispense Refill linaCLOtide (LINZESS) 145 mcg capsule Take by mouth. omeprazole 20 mg capsule Take 20 mg by mouth daily. ammonium lactate 12 % cream Apply BID as needed for dry skin 140 g 1 LASIX 20 mg tablet TAKE ONE TABLET BY MOUTH DAILY NEEDED FOR SWELLING 30 tablet 4 diphenhydramine HCl (BENADRYL ALLERGY ORAL) Take by mouth. albuterol 90 mcg/actuation inhaler Inhale 2 Puffs every 6 (six) hours as needed for Wheezing or Shortness of Breath. 8.5 g 12 azelastine 137 mcg (0.1 %) nasal spray Use 1 [place] in each nostril 2 (two) times daily. Use in each nostril as directed 30 mL 2 potassium chloride (KLOR-CON 10) 10 mEq CR tablet Take 1 tablet by mouth daily. 30 tablet 5 aspirin 81 mg EC tablet Take 81 mg by mouth daily. Indications: TID in morning and night ESGIC-PLUS 50-500-40 MG ORAL TAB 1 tab prn migraines No current facility-administered medications for this visit. Histories Past Medical History: Diagnosis Date Diverticulitis GERD (gastroesophageal reflux disease) IBS (irritable bowel syndrome) Migraine headache Mitral valve prolapse Followed by Dr. Patel Past Surgical History: Procedure Laterality Date APPENDECTOMY BREAST BIOPSY 1985 COLONOSCOPY CYST EXCISION 1982 Right wrist UPPER GI ENDOSCOPY VAGINAL HYSTERECTOMY 1998 Social History Socioeconomic History [...] file Gets together: Not on file Attends buddhism service: Not on file Active member of [...] Sister Asthma Brother Review of Systems Constitutional: Negative for activity change, appetite change, chills, diaphoresis, fatigue, fever, unexpected weight change, weight gain and weight loss. HENT: Negative for congestion, ear pain, postnasal drip, rhinorrhea, sinus pressure, sneezing, sore throat, trouble swallowing and voice change. Respiratory: Negative for cough, chest tightness, shortness of breath and wheezing. Cardiovascular: Negative for chest pain, palpitations and leg swelling. Gastrointestinal: Negative for abdominal pain, constipation, diarrhea, nausea and vomiting. Genitourinary: Negative for bladder incontinence, dysuria, urgency, polyuria, frequency, hematuria, flank pain, difficulty urinating and nocturia. Musculoskeletal: Negative for arthralgias, back pain and myalgias. Skin: Negative for color change, pallor, rash and wound. Neurological: Negative for dizziness, syncope, light-headedness and headaches. Hematological: Negative for cold intolerance and heat intolerance. Endocrine: Negative for goiter, hair loss, cold intolerance, heat intolerance, polydipsia, polyphagia, polyuria, weight gain and weight loss. Vital Signs BP (!) 135/92 | Pulse 68 | Temp 36.2 C (97.2 F) (Tympanic) | Wt 146 lb (66.2 kg) | SpO2 97%| BMI 26.70 kg/m BP 122/70 | Pulse 68 | Temp 36.2 C (97.2 F) (Tympanic) | Wt 146 lb (66.2 kg) | SpO2 97% | BMI 26.70 kg/m Physical Exam Constitutional: She is oriented to person, place, and time. She appears well- developed and well-nourished. No distress. HENT: Head: Normocephalic and atraumatic. Right Ear: Tympanic membrane, external ear and ear canal normal. Left Ear: Tympanic membrane, external ear and ear canal normal. Nose: Nose normal. Mouth/Throat: Oropharynx is clear and moist. Neck: Normal range of motion. Neck supple. Carotid bruit is not present. No thyromegaly (nontender. no redness, swelling, warmth. ) present. Cardiovascular: Normal rate, regular rhythm, normal heart sounds and intact distal pulses. Exam reveals no gallop and no friction rub. No murmur heard. Pulmonary/Chest: Effort normal and breath sounds normal. No stridor. No respiratory distress. She has no wheezes. She has no rales. Abdominal: Soft. Bowel sounds are normal. She exhibits no distension. There is no tenderness. There is no rigidity, no rebound, no guarding, no CVA tenderness, no tenderness at McBurney's point and negative Armstrong's sign. Musculoskeletal: Normal range of motion. She exhibits no edema. Lymphadenopathy: She has no cervical adenopathy. Neurological: She is alert and oriented to person, place, and time. Skin: Skin is warm and dry. She is not diaphoretic. Psychiatric: She has a normal mood and affect. Her behavior is normal. Nursing note reviewed. Thyroid u/s 04/2018 HISTORY: Thyroid mass. TECHNIQUE: Thyroid gland is evaluated in multiple planes without and with color imaging. FINDINGS: Right lobe of the thyroid gland is 4.2 x 0.9 x 1.4 cm ( 3.2 cc), isthmus portion is 1.4 mm in thickness, left lobe is 3.6 x 1.1 x 1.5 cm ( 3.3 cc) in size. A small 3 x 2 mm cyst is present in the upper medial right lobe near the isthmus. No solid mass is detected. CONCLUSIONS: Essentially normal study. Assessment/Plan Dark urine (primary encounter diagnosis)/carlos colored Plan: CBC WITH DIFF, COMP. METABOLIC PANEL (35068), URINALYSIS, URINE CULTURE, HEPATITIS C VIRUS ANTIBODY, HEPATITIS B SURFACE ANTIGEN, HEPATITIS A VIRUS ANTIBODY IGM, CBC WITH DIFFERENTIAL Chronic x 6 months without change. Afebrile, well appearing, NAD. No UTI symptoms: no dysuria, frequency, urgency, hematuria, flank pain. Ongoing x 6 months without change, no weakness, no muscle pain.No f/c. No n/v. Will get labs and urine studies to further evaluate. Consider urology referral as needed pending testing. Encouraged to maintain at least 64 oz water daily ER--> f/c, n/v, weakness, body aches, flank pain, hematuria Thyroid cyst Plan: THYROID STIMULATING HORMONE, FREE T4, FREE T3, THYROID PEROXIDASE (TPO) AB, THYROGLOBULIN AB, CONSULT/REFERRAL ENT Patient under the care of ENT- Dr. Vasquez. Encouraged to continue regular follow-up Will order thyroid labs to further evaluate Hair loss Plan: CBC WITH DIFF, COMP. METABOLIC PANEL (38016), THYROID STIMULATING HORMONE, FREE T4, FREE T3, THYROID PEROXIDASE (TPO) AB, THYROGLOBULIN AB Evaluate further with labs Avoid wearing hair in ponytails Recommend using sulfate/paraben free shampoo Recommend taking women's multivitamin Recommend Heart healthy diet: low fat/carb/sugar diet; increase lean meat- chicken, turkey, fish; increase vegetables/fruits ( still be careful because elevated sugar level) Water: min 64 oz daily Overweight (BMI 25.0-29.9) Plan: CBC WITH DIFF, COMP. METABOLIC PANEL (65602), LIPID PANEL (83507)(TOTAL CHOLESTEROL, TRIGLYCERIDES, HDL), THYROID STIMULATING HORMONE, CBC WITH DIFFERENTIAL, GLYCOSYLATED HEMOGLOBIN (A1C) Nutritional/Exercise Counseling and Education: - Counseled on diet, exercise, weight control and goals Counseled on healthy lifestyle habits in great detail including: -Portion control -My plate model with fruits/vegetables on half of your plate -Recommend eating 3 well balanced, small/portion controlled meals. -Recommend avoiding meal skipping. -Recommend avoiding sodas -Recommend avoiding fast food -Recommend increasing water: min 64 oz daily -Recommend Heart healthy diet: low fat/carb/sugar diet; increase lean meat- chicken, turkey, fish; increase vegetables/fruits ( still be careful because elevated sugar level) -Recommend Heart Healthy Exercise: total of 150 minutes of cardio: walking,swimming, hiking, biking every week. Well woman exam Plan: CONSULT/REFERRAL PLAQUE MAKER Pt ed/precautions given in detail regarding conditions/medicaitons. Er precautions given. Pt reportsunderstanding and agrees. rtc if s/s worsen or do not improve ; prn labs Plan of care, desired health behaviors, goals, Ddx, & any prescribed or OTC medications discussed with patient. Education resources & self management tools provided and reviewed with AVS. Patient/guardian/family verbalized understanding & agrees to plan of care. Barriers to care: NONE Ability to manage care: Good This visit did not involve counseling and coordination that comprised more than 50% of the visit time. documented in this encounter Plan of Treatment Name Type Priority Associated Diagnoses Date/Ti me THYROID PEROXIDASE (TPO) LAB Routine Thyroid cyst 07/31/2019 8:49 AM AB Hair loss [employer]ON PRINTER THYROGLOBULIN AB LAB Routine Thyroid cyst 07/31/2019 8:49 AM Hair loss [employer]ON [employer]INTER URINE CULTURE LAB Routine Dark urine 07/31/2019 9: 01 AM [employer]ON PRINTER HEPATITIS C VIRUS ANTIBODY LAB Routine Dark urine 0 07/31/2019 8:49 AM [employer]BON PRINTER HEPATITIS B SURFACE LAB Routine Dark urine 07/31/19 20 8:49 AM ANTIGEN [employer] HEPATITIS A VIRUS ANTIBODY LAB Routine Dark urine 0 07/31/2019 8:49 AM IGM [employer]INTER GLYCOSYLATED HEMOGLOBIN LAB Routine Overweight (BMI 0 07/31/2019 8:49 AM (A1C) 25.0-29.9) [employer] Health Maintenance Due Date Last Done Comments HEPATITIS C (HCV) SCREEN 1955 PNEUMOCOCCAL 0-64 YEARS 1962 COMBINED SERIES (1 of 1 - PPSV23) Breast Cancer Screening 05/14/2019 05/14/2018, (MAMMOGRAM) 02/01/2017 Zoster Recombinant Vaccine 02/11/2020 Postp oned from 2006 (SHINGRIX) (1 of 2) (Refused) INFLUENZA VACCINE (#1) 2020 Postponed from 02/01/2019 (Refused) DTaP,Tdap,and Td Vaccines (2 11/01/2025 11/02/2015 - Td) COLONOSCOPY 05/05/2029 05/05/2019 documented as of this encounter Procedures Procedure Name Priority Date/Time Associated Comments Diagnosis URINALYSIS Routine 07/31/2019 9:01 Dark urine Results for this AM [employer]ON PRINTER procedure are i n the results section. CBC WITH DIFFERENTIAL Routine 07/31/2019 8:49 Dark urin e Results for this AM [employer]ON PRINTER Overweight (BMI procedure ar e in 25.0-29.9) the results section. FREE T3 Routine 07/31/2019 8:49 Thyroid cyst Results for this AM [employer] PRINTER Hair loss procedure are i n the results section. CBC WITH DIFFERENTIAL Routine 07/31/2019 8:49 Dark urin e Results for this AM [employer]ON PRINTER Overweight (BMI procedure ar e in 25.0-29.9) the results Hair loss section. LIPID PANEL Routine 07/31/2019 8:49 Overweight (BMI Results for this (11012)(TOTAL AM CARBON PRINTER 25.0-29.9) procedure are in CHOLESTEROL, the results TRIGLYCERIDES, HDL) section. COMP. METABOLIC PANEL Routine 07/31/2019 8:49 Dark urin e Results for this (79932) AM [employer]ON PRINTER Overweight (BMI procedure ar e in 25.0-29.9) the results Hair loss section. THYROID STIMULATING Routine 07/31/2019 8:49 Thyroid cys t Results for this HORMONE AM [employer]ON PRINTER Overweight (BMI procedure ar e in 25.0-29.9) the results Hair loss section. FREE T4 Routine 07/31/2019 8:49 Thyroid cyst Results for this AM [employer]ON PRINTER Hair loss procedure are i n the results section. documented in this encounter Results URINALYSIS (07/31/2019 9:01 AM CARBON PRINTER) Pathologist Sig nature APPEARANCE Cloudy (A) Clear [facility] COLOR Carlos (A) Yellow [facility] PH 5.0 4.8 - 8.0 [facility] SP GRAVITY 1.026 1.003 - 1.030 [facility] GLU U QUAL Normal Normal [facility] BLOOD Negative Negative [facility] KETONES Negative Negative [facility] PROTEIN Negative Negative [facility] UROBILIN Normal Normal [facility] BILIRUBIN Negative Negative [facility] NITRITE Negative Negative [facility] LEUK MARLEY 500/uL (A) Negative [facility] RBC/HPF 6 (H) 0 - 3 HPF [facility] WBC/HPF 88 (H) 0 - 5 HPF [facility] BACTERIA Few (A) Negative [facility] MUCOUS Moderate (A) Negative LPF [facility] SQ EPITH 14 HPF [facility] CA OXALATE 82 (H) <=1 HPF [facility] Specimen Urine - URINE, CLEAN CATCH Performing Organization Address City/State/Zipcode Phone Number [facility] CLIA: [id number], [address] [place], [place] [address] CBC WITH DIFFERENTIAL (07/31/2019 8:49 AM CARBON PRINTER) Pathologist Sig nature WBC 5.83 4.30 - 11.10 [facility] 10*3/L [facility] RBC 5.11 3.93 - 5.25 [facility] 10*6/L [facility] HGB 14.5 11.6 - 15.0 g/dL [facility] HCT 44.5 35.7 - 45.2 % [facility] MCV 87.1 80.6 - 95.5 fL [facility] MCH 28.4 25.9 - 32.8 pg [facility] MCHC 32.6 31.6 - 35.1 g/dL [facility] RDW-SD 41.7 39.0 - 49.9 fL [facility] RDW-CV 13.2 12.0 - 15.5 % [facility] PLT 205 166 - 358 [facility] 10*3/L [facility] MPV 12.3 9.5 - 12.9 fL [facility] NRBC/100 WBC 0.0 0.0 - 10.0 /100 [facility] WBCs [facility] NRBC x10^3 <0.01 10*3/L [facility] GRAN MAT (NEUT) % 45.0 % [facility] IMM GRAN % 0.30 % [facility] LYMPH % 45.6 % [facility] MONO % 6.7 % [facility] EOS % 2.1 % [facility] BASO % 0.3 % [facility] GRAN MAT x10^3(ANC) 2.62 1.88 - 7.09 [facility] 10*3/uL [facility] IMM GRAN x10^3 <0.03 0.00 - 0.06 [facility] 10*3/uL [facility] LYMPH x10^3 2.66 1.32 - 3.29 [facility] 10*3/uL [facility] MONO x10^3 0.39 0.33 - 0.92 [facility] 10*3/uL [facility] EOS x10^3 0.12 0.03 - 0.39 [facility] 10*3/uL [facility] BASO x10^3 <0.03 0.01 - 0.07 [facility] 10*3/uL [facility] Specimen Blood - ARM, LEFT Performing Organization Address [facility]/Zipcode Phone Number [facility] CLIA: [id number], [address] [place] [address] FREE T3 (07/31/2019 8:49 AM CARBON PRINTER) [facility] FREE T3 4.47 2.77 - 5.27 pg/mL [facility] Specimen Blood - ARM, LEFT Performing Organization Address City/[facility]/Zipcode Phone Number [facility] CLIA: [id number], [address] [place], [place] [address] FREE T4 (07/31/2019 8:49 AM CARBON PRINTER) Pathologist Sig nature FREE T4 1.03 0.78 - 2.20 ng/dL [facility] Specimen Blood - ARM, LEFT Performing Organization Address [facility] [place] Phone Number [facility] CLIA: [id number], [address] [place] [address] THYROID STIMULATING HORMONE (07/31/2019 8:49 AM CARBON PRINTER) Pathologist Sig nature TSH 3.00 0.45 - 4.70 mIU/L [facility] Specimen Blood - ARM, LEFT Performing Organization Address [facility] [place] Phone Number [facility] CLIA: [id number], [address] [place] [address] LIPID PANEL (56996)(TOTAL CHOLESTEROL, TRIGLYCERIDES, HDL) (07/31/2019 8:49 AM CARBON PRINTER) Pathologist Sig nature CHOL 283 (H) 120 - 200 mg/dL [facility] HDL 48 (L) >50 mg/dL [facility] HDLC RATIO 5.9 (H) <=4.5 [facility] TRIG 222 (H) 30 - 170 mg/dL [facility] LDL CHOL 191 (H) <=160 mg/dL [facility] VLDL 44 5 - 60 mg/dL [facility] Specimen Blood - ARM, LEFT Performing Organization Address [facility] [place] Phone Number [facility] CLIA: [id number], [address] [place] [address] COMP. METABOLIC PANEL (88786) (07/31/2019 8:49 AM CARBON PRINTER) Pathologist Sig nature NA 140 135 - 145 mmol/L [facility] K 4.1 3.5 - 5.0 mmol/L [facility] CL 102 98 - 108 mmol/L [facility] CO2 TOTAL 29 23 - 31 mmol/L [facility] AGAP 9 2 - 16 [facility] BUN 13 7 - 23 mg/dL [facility] GLUCOSE 100 70 - 110 mg/dL [facility] CREATININE 0.76 0.50 - 1.04 [facility] mg/dL [facility] TOTAL BILI 0.6 0.1 - 1.1 mg/dL [facility] CALCIUM 9.9 8.6 - 10.6 mg/dL [facility] T PROTEIN 7.5 6.3 - 8.2 g/dL [facility] ALBUMIN 4.9 3.5 - 5.0 g/dL [facility] ALK PHOS 78 34 - 122 U/L [facility] ALTv 22 5 - 35 U/L [facility] AST(SGOT) 29 13 - 40 U/L [facility] eGFR Calculation 76.9 mL/min/1.73m2 [facility] ([facility]) [facility] Y eGFR Calculation 93.2 mL/min/1.73m2 [facility] () [facility] Specimen Blood - ARM, LEFT Narrative Performed At Association of Glomerular Filtration Rate (GFR) [facility] and Staging of Kidney Disease* + + +- + | GFR (mL/min/1.73 m2) | With Kidney Damage | Without Kidney Damage + + +- + | >90 | Stage one | Normal + + +- + | 60-89 | Stage two | Decreased GFR + + +- + | 30-59 | Stage three | Stage three + + +- + | 15-29 | Stage four | Stage four + + +- + | <15 (or dialysis) | Stage five | Stage five + + +- + *Each stage assumes the associated GFR level has been in effect for at least three months. Stages 1 to 5, with or without kidney [...] tests). Performing Organization Address City/State/Zipcode Phone Number [facility] CLIA: [id number], [address] [place] [address] documented in this encounter Visit Diagnoses Diagnosis Dark urine - Primary Other nonspecific finding on examination of urine Thyroid cyst Cyst of thyroid Hair loss Alopecia, unspecified Overweight (BMI 25.0-29.9) Overweight Well woman exam Routine general medical examination at a health care facility documented in this encounter Insurance Payer Benefit Plan Subscriber ID Effective Dates Phone Address Type / Group BCBS OF [facility] [id number] 2016-Martha [phone] [address] PPO/POS [place] - OUT OF t 7 [id number] [place] [address] documented as of this encounter"
--- OUTSIDE RECORDS SUMMARY | 2019-10-28 17:28 | XMS REPORT | Summary of Care ---
:1955 Author Organization [facility] Address [address] [place] [address] Care Team Providers Name Role Phone MD Ronald Primary Care Provider Reason for Visit Reason Comments TEST RESULTS Encounter Details Date Type Department Care Team Description 08/07/2019 Telephone [facility] Family Medicine Kyaley hood, KELLI Jones TEST RESULTS - [place] [address] [address] [place] [address] [place] [address] [phone] Allergies Active Allergy Reactions Severity Noted Date Comments Iodine Rash 09/30/2009 Nsaids (Non-Steroidal Other - See comments 08/23/2017 Severe abdominal pain Anti-Inflammatory Drug) Penicillins Rash 09/30/2009 Sulfur Shortness of Breath 09/30/2009 documented as of this encounter (statuses as of 08/11/2019) Medications Medication Sig Dispensed Refills Start Date End Date Status ESGIC-PLUS 50-500-40 1 tab prn 0 Active MG ORAL TAB migraines aspirin 81 mg EC Take 81 mg by 0 Active tabletIndications: TID mouth daily. in morning and night Indications: TID in morning and night azelastine 137 mcg Use 1 Ball in 30 mL 2 08/23/2017 Active (0.1 %) nasal each nostril 2 sprayIndications: (two) times Acute seasonal daily. Use in allergic rhinitis due each nostril as to pollen directed potassium chloride Take 1 tablet by 30 tablet 5 08/23/2017 Active (KLOR-CON 10) 10 mEq mouth daily. CR tabletIndications: Edema, unspecified type albuterol 90 Inhale 2 Puffs 8.5 g 12 08/23/2017 A ctive mcg/actuation every 6 (six) inhalerIndications: hours as needed Asthma, unspecified for Wheezing or asthma severity, Shortness of unspecified whether Breath. complicated, unspecified whether persistent diphenhydramine HCl Take by mouth. 0 Active (BENADRYL ALLERGY ORAL) LASIX 20 mg TAKE ONE TABLET 30 tablet 4 12/22/2018 A ctive tabletIndications: BY MOUTH DAILY Edema, unspecified NEEDED FOR type SWELLING ammonium lactate 12 % Apply BID as 140 g 1 04/08/2019 Active creamIndications: needed for dry Xeroderma skin omeprazole 20 mg Take 20 mg by 0 05/21/2019 Active capsule mouth daily. linaCLOtide (LINZESS) Take by mouth. 0 Active 145 mcg capsule cefUROXime 250 mg Take 1 tablet by 14 tablet 0 08/04/201908/01 Active tabletIndications: mouth 2 (two) Acute cystitis with times daily for hematuria 7 days. documented as of this encounter (statuses as of 08/11/2019) Active Problems Problem Noted Date Nonintractable headache, unspecified chronicity patter n, unspecified 04/22/2018 headache type Pain of right hand 04/22/2018 Mass of hand, right 04/22/2018 Scalp mass 04/22/2018 Throat discomfort 08/15/2015 documented as of this encounter (statuses as of 08/11/2019) Immunizations Name Administration Dates Next Due Tdap [...] Health Maintenance Due Date Last Done Comments PNEUMOCOCCAL 0-64 YEARS 1961 COMBINED SERIES (1 of 1 - PPSV23) Breast Cancer Screening 05/14/2019 05/14/2018, (MAMMOGRAM) 02/01/2017 Zoster Recombinant Vaccine 02/11/2020 Postp oned from 2006 (SHINGRIX) (1 of 2) (Refused) INFLUENZA VACCINE (#1) 2020 Postponed from 02/01/2019 (Refused) DTaP,Tdap,and Td Vaccines (2 11/01/2025 11/02/2015 - Td) COLONOSCOPY 05/05/2029 05/05/2019 HEPATITIS C (HCV) SCREEN Completed 07/31/2019 documented as of this encounter Results Not on filedocumented in this encounter Insurance Payer Benefit Plan Subscriber ID Effective Dates Phone Address Type / Group BCBS OF [place] OF [place] [id number] 2016-Martha [phone] [address] PPO/POS [place] - OUT OF t 7 [id number] [place] [address] documented as of this encounter
--- OUTSIDE RECORDS SUMMARY | 2019-10-28 17:28 | XMS REPORT | Summary of Care ---
:1955 Author Organization [facility] Address [address] [place] [address] Care Team Providers Name Role Phone MD Ronald Primary Care Provider Reason for Visit Reason Comments Orders Encounter Details Date Type Department Care Team Description 08/04/2019 Telephone [facility] Family Medicine Kayley hood, KELLI Jones Orders - [address] [place] [address] [place] [address] [phone] Allergies Active Allergy Reactions Severity Noted Date Comments Iodine Rash 09/30/2009 Nsaids (Non-Steroidal Other - See comments 08/23/2017 Severe abdominal pain Anti-Inflammatory Drug) Penicillins Rash 09/30/2009 Sulfur Shortness of Breath 09/30/2009 documented as of this encounter (statuses as of 08/04/2019) Medications Medication Sig Dispensed Refills Start Date End Date Status ESGIC-PLUS 50-500-40 1 tab prn 0 Active MG ORAL TAB migraines aspirin 81 mg EC Take 81 mg by 0 Active tabletIndications: TID mouth daily. in morning and night Indications: TID in morning and night azelastine 137 mcg Use 1 [place] in 30 mL 2 08/23/2017 Active (0.1 [...] as of this encounter (statuses as of 08/04/2019) Active Problems Problem Noted Date Nonintractable headache, unspecified chronicity patter n, unspecified 04/22/2018 headache type Pain of right hand 04/22/2018 Mass of hand, right 04/22/2018 Scalp mass 04/22/2018 Throat discomfort 08/15/2015 documented as of this encounter (statuses as of 08/04/2019) Immunizations Name Administration Dates Next Due Tdap [...] filedocumented in this encounter Visit Diagnoses Diagnosis Acute cystitis with hematuria - Primary Acute cystitis documented in this encounter Insurance Payer Benefit Plan Subscriber ID Effective Dates Phone Address Type / Group BCBS OF [facility] [id number] 2016-Martha [phone] [address] PPO/POS [place] - OUT OF t 7 [id number] [place] [address] documented as of this encounter
--- OUTSIDE RECORDS SUMMARY | 2019-10-28 17:28 | XMS REPORT | Summary of Care ---
:1955 Author Organization [facility] Address [address] [place] [address] Care Team Providers Name Role Phone MD Ronald Primary Care Provider Reason for Referral (Routine) Status Reason Specialty Diagnoses / Referred By Referred To Procedures Contact Contact New Request Patient is Otolaryngology Diagnoses Thyroid cyst Fiordaliza, Established with Procedures CONSULT/REFERRAL ENT KELLI Jones a Specific [address] [facility] [place] [address] (Routine) Status Reason Specialty Diagnoses / Referred By Referred To Procedures Contact Contact New Request Obstetrics & Diagnoses Well woman exam Melvi Mancera Gynecology Procedures CONSULT/REFERRAL INTERNATIONAL ACCOUNT MANAGER KELLI Carbajal [address] [place] [facility] [place] [address] Reason for Visit Reason Comments Thyroid Problem LAB WORK Encounter Details Date Type Department Care Team Description 07/31/2019 Office Visit [facility] Family Melvi Mancera Dark urine (Primary Dx); [facility] PEREIRA Thyroid cyst[facility] E [facility] Hair loss; [place], [place] Overweight (BMI 25.0-29.9); [phone] Well woman exam [phone] Allergies Active Allergy Reactions Severity Noted Date [...] and night azelastine 137 mcg Use 1 [place] in 30 mL 2 Active (0.1 %) [...] Comments Blood Pressure 122/70 07/31/2019 8:35 AM [facility] Pulse 68 07/31/2019 8:05 AM [facility] Temperature 36.2 C (97.2 F) 07/31/2019 8:05 AM [facility] Respiratory Rate - - Oxygen Saturation 97% 07/31/2019 8:05 AM [facility] Inhaled Oxygen Concentration - - Weight 66.2 kg (146 lb) 07/31/2019 8:05 AM [facility] Height - - Body Mass Index 26.7 06/08/2019 2:01 PM [facility] documented in this encounter Progress Notes Brynn Brown - 07/31/2019 8:00 AM CST Venipuncture collection performed by clean technique on the left anticubitus. Total of 1 attempts were made. Slight pressure and a bandage/dressing were applied to the site(s). The patient experienced no complications. The following specimens were processed according to instructions and sent to [facility] laboratories per lab order on 07/31/19: LT [...] mcg (0.1 %) nasal spray Use 1 [place] in each nostril 2 (two) times daily. [...] file Gets together: Not on file Attends congregational service: Not on file Active member of [...] Plan: CBC WITH DIFF, COMP. METABOLIC PANEL (38658), URINALYSIS, URINE CULTURE, HEPATITIS C VIRUS ANTIBODY, [...] Plan: CBC WITH DIFF, COMP. METABOLIC PANEL (19905), THYROID STIMULATING HORMONE, FREE T4, FREE T3, [...] Plan: CBC WITH DIFF, COMP. METABOLIC PANEL (32951), LIPID PANEL (93014)(TOTAL CHOLESTEROL, TRIGLYCERIDES, HDL), THYROID STIMULATING HORMONE, CBC [...] every week. Well woman exam Plan: CONSULT/REFERRAL INTERNATIONAL ACCOUNT MANAGER Pt ed/precautions given in detail regarding conditions/medicaitons. [...] cyst 07/31/2019 8:49 AM AB Hair loss [facility] THYROGLOBULIN AB LAB Routine Thyroid cyst 07/31/2019 8:49 AM Hair loss [facility] URINE CULTURE LAB Routine Dark urine 07/31/2019 9: 01 AM [facility] HEPATITIS C VIRUS ANTIBODY LAB Routine Dark urine 0 07/31/2019 8:49 AM [facility] HEPATITIS B SURFACE LAB Routine Dark urine 07/31/19 20 8:49 AM ANTIGEN [facility] HEPATITIS A VIRUS ANTIBODY LAB Routine Dark urine 0 07/31/2019 8:49 AM IGM [facility] GLYCOSYLATED HEMOGLOBIN LAB Routine Overweight (BMI 0 07/31/2019 8:49 AM (A1C) 25.0-29.9) [facility] Health Maintenance Due Date Last Done Comments [...] 9:01 Dark urine Results for this AM [facility] procedure are i n the results section. CBC WITH DIFFERENTIAL Routine 07/31/2019 8:49 Dark urin e Results for this AM [facility] Overweight (BMI procedure ar e in 25.0-29.9) the results section. FREE T3 Routine 07/31/2019 8:49 Thyroid cyst Results for this AM [facility] Hair loss procedure are i n the results section. CBC WITH DIFFERENTIAL Routine 07/31/2019 8:49 Dark urin e Results for this AM [facility] Overweight (BMI procedure ar e in 25.0-29.9) the results Hair loss section. LIPID PANEL Routine 07/31/2019 8:49 Overweight (BMI Results for this (05093)(TOTAL AM [facility] 25.0-29.9) procedure are in CHOLESTEROL, the results TRIGLYCERIDES, HDL) section. COMP. METABOLIC PANEL Routine 07/31/2019 8:49 Dark urin e Results for this (11556) AM [facility] Overweight (BMI procedure ar e in 25.0-29.9) the results Hair loss section. THYROID STIMULATING Routine 07/31/2019 8:49 Thyroid cys t Results for this HORMONE AM [facility] Overweight (BMI procedure ar e in 25.0-29.9) the results Hair loss section. FREE T4 Routine 07/31/2019 8:49 Thyroid cyst Results for this AM [facility] Hair loss procedure are i n the results section. documented in this encounter Results URINALYSIS (07/31/2019 9:01 AM [facility]) Pathologist Sig nature APPEARANCE Cloudy (A) Clear [facility] COLOR Carlos (A) Yellow [facility] PH 5.0 4.8 - 8.0 [facility] SP GRAVITY 1.026 1.003 - 1.030 [facility] GLU U QUAL Normal Normal [facility] BLOOD Negative Negative [facility] KETONES Negative Negative [facility] PROTEIN Negative Negative [facility] UROBILIN Normal Normal [facility] BILIRUBIN Negative Negative [facility] NITRITE Negative Negative [facility] LEUK MARLEY 500/uL (A) Negative [facility] RBC/HPF 6 (H) 0 - 3 HPF [facility] WBC/HPF 88 (H) 0 - 5 HPF [facility] BACTERIA Few (A) Negative [facility] MUCOUS Moderate (A) Negative LPF [facility] SQ EPITH 14 HPF [facility] CA OXALATE 82 (H) <=1 HPF [facility] Specimen Urine - URINE, CLEAN CATCH Performing Organization Address City/State/Zipcode Phone Number [facility] CLIA: [id number], [address] [place], [place] [address] CBC WITH DIFFERENTIAL (07/31/2019 8:49 AM [facility]) Pathologist Sig nature WBC 5.83 4.30 - 11.10 [facility] 10*3/L [facility] RBC 5.11 3.93 - 5.25 [facility] 10*6/L [facility] HGB 14.5 11.6 - 15.0 g/dL [facility] HCT 44.5 35.7 - 45.2 % [facility] MCV 87.1 80.6 - 95.5 fL [facility] MCH 28.4 25.9 - 32.8 pg [facility] MCHC 32.6 31.6 - 35.1 g/dL [facility] RDW-SD 41.7 39.0 - 49.9 fL [facility] RDW-CV 13.2 12.0 - 15.5 % [facility] PLT 205 166 - 358 [facility] 10*3/L [facility] MPV 12.3 9.5 - 12.9 fL [facility] NRBC/100 WBC 0.0 0.0 - 10.0 /100 [facility] WBCs [facility] NRBC x10^3 <0.01 10*3/L [facility] GRAN MAT (NEUT) % 45.0 % [facility] IMM GRAN % 0.30 % [facility] LYMPH % 45.6 % [facility] MONO % 6.7 % [facility] EOS % 2.1 % [facility] BASO % 0.3 % [facility] GRAN MAT x10^3(ANC) 2.62 1.88 - 7.09 [facility] 10*3/uL [facility] IMM GRAN x10^3 <0.03 0.00 - 0.06 [facility] 10*3/uL [facility] LYMPH x10^3 2.66 1.32 - 3.29 [facility] 10*3/uL [facility] MONO x10^3 0.39 0.33 - 0.92 [facility] 10*3/uL [facility] EOS x10^3 0.12 0.03 - 0.39 [facility] 10*3/uL [facility] BASO x10^3 <0.03 0.01 - 0.07 [facility] 10*3/uL [facility] Specimen Blood - ARM, LEFT Performing Organization Address [facility]/Zipcode Phone Number [facility] CLIA: [id number], [address] [place] [address] FREE T3 (07/31/2019 8:49 AM [facility]) [facility] FREE T3 4.47 2.77 - 5.27 pg/mL [facility] Specimen Blood - ARM, LEFT Performing Organization Address City/[facility]/Zipcode Phone Number [facility] CLIA: [id number], [address] [place], [place] [address] FREE T4 (07/31/2019 8:49 AM [facility]) Pathologist Sig nature FREE T4 1.03 0.78 - 2.20 ng/dL [facility] Specimen Blood - ARM, LEFT Performing Organization Address [facility] Phone Number [facility] CLIA: [id number], [address] [place] [address] THYROID STIMULATING HORMONE (07/31/2019 8:49 AM [facility]) Pathologist Sig nature TSH 3.00 0.45 - 4.70 mIU/L [facility] Specimen Blood - ARM, LEFT Performing Organization Address [facility] Phone Number [facility] CLIA: [id number], [address] [place] [address] LIPID PANEL (33100)(TOTAL CHOLESTEROL, TRIGLYCERIDES, HDL) (07/31/2019 8:49 AM [facility]) Pathologist Sig nature CHOL 283 (H) 120 - 200 mg/dL [facility] HDL 48 (L) >50 mg/dL [facility] HDLC RATIO 5.9 (H) <=4.5 [facility] TRIG 222 (H) 30 - 170 mg/dL [facility] LDL CHOL 191 (H) <=160 mg/dL [facility] VLDL 44 5 - 60 mg/dL [facility] Specimen Blood - ARM, LEFT Performing Organization Address [facility] Phone Number [facility] CLIA: [id number], [address] [place] [address] COMP. METABOLIC PANEL (73072) (07/31/2019 8:49 AM [facility]) Pathologist Sig nature NA 140 135 - 145 mmol/L [facility] K 4.1 3.5 - 5.0 mmol/L [facility] CL 102 98 - 108 mmol/L [facility] CO2 TOTAL 29 23 - 31 mmol/L [facility] AGAP 9 2 - 16 [facility] BUN 13 7 - 23 mg/dL [facility] GLUCOSE 100 70 - 110 mg/dL [facility] CREATININE 0.76 0.50 - 1.04 [facility] mg/dL [facility] TOTAL BILI 0.6 0.1 - 1.1 mg/dL [facility] CALCIUM 9.9 8.6 - 10.6 mg/dL [facility] T PROTEIN 7.5 6.3 - 8.2 g/dL [facility] ALBUMIN 4.9 3.5 - 5.0 g/dL [facility] ALK PHOS 78 34 - 122 U/L [facility] ALTv 22 5 - 35 U/L [facility] AST(SGOT) 29 13 - 40 U/L [facility] eGFR Calculation 76.9 mL/min/1.73m2 [facility] (Non[facility]) [facility] LABOR[facility] Y eGFR Calculation 93.2 mL/min/1.73m2 [facility] () [facility] Specimen Blood - ARM, LEFT Narrative Performed At Association of Glomerular Filtration Rate (GFR) [facility] and Staging of Kidney Disease* [...] tests). Performing Organization Address City/State/Zipcode Phone Number [facility] CLIA: [id number], [address] [place] [address] documented in this [...] Phone Address Type / Group BCBS OF [facility] [id number] 2016-Martha [phone] [address] PPO/POS [place] - OUT OF t 7 [id number] [place] [address] documented as of this encounter"
--- OUTSIDE RECORDS SUMMARY | 2019-10-28 17:29 | XMS REPORT | Summary of Care ---
:1955 Author Organization [facility] Address [address] [place] [address] Care Team Providers Name Role Phone MD Ronald Primary Care Provider Reason for Visit Reason Comments Rx Concern/Question Encounter Details Date Type Department Care Team Description 08/20/2019 Telephone [facility] Family Km Cardenas MD Rx Concern/Question Medicine - [place] [address] [place] [id number] Allergies Active Allergy Reactions Severity Noted Date Comments Iodine Rash 09/30/2009 Nsaids (Non-Steroidal Other - See comments 08/23/2017 Severe abdominal pain Anti-Inflammatory Drug) Penicillins Rash 09/30/2009 Sulfur Shortness of Breath 09/30/2009 documented as of this encounter (statuses as of 08/21/2019) Medications Medication Sig Dispensed Refills Start Date End Date Status ESGIC-PLUS 50-500-40 MG 1 tab prn 0 Active ORAL TAB migraines aspirin 81 mg EC Take 81 mg by 0 Active tabletIndications: TID mouth daily. in morning and night Indications: TID in morning and night azelastine 137 mcg (0.1 Use 1 [place] in 30 mL 2 08/23/2017 Active %) [...] ctive tabletIndications: BY MOUTH DAILY Edema, unspecified type NEEDED FOR SWELLING ammonium lactate 12 % Apply BID as 140 g 1 04/08/2019 Active creamIndications: needed for dry Xeroderma skin omeprazole 20 mg Take 20 mg by 0 05/21/2019 Active capsule mouth daily. linaCLOtide (LINZESS) Take by mouth. 0 Active 145 mcg capsule documented as of this encounter (statuses as of 08/21/2019) Active Problems Problem Noted Date Nonintractable headache, unspecified chronicity patter n, unspecified 04/22/2018 headache type Pain of right hand 04/22/2018 Mass of hand, right 04/22/2018 Scalp mass 04/22/2018 Throat discomfort 08/15/2015 documented as of this encounter (statuses as of 08/21/2019) Immunizations Name Administration Dates Next Due Tdap [...] Address Type / Group BCBS OF BCBS [facility] [id number] 2016-Martha [phone] [address] PPO/POS [place] - OUT OF t 7 [id number] [place] [address] documented as of this encounter
--- OUTSIDE RECORDS SUMMARY | 2019-10-28 17:29 | XMS REPORT | Summary of Care ---
:1955 Author Organization [facility] [employer] [facility] Address [address] [place] [address] Care Team Providers Name Role Phone MD Ronald Primary Care Provider Encounter Details Date Type Department Care Team Description 08/24/2019 Patient Secure [facility] Family Pasquale Cardenas, Mandi vaginitis Medicine - [place] [facility] [place] [address] [place] [phone] Allergies Active Allergy Reactions Severity Noted Date Comments Iodine Rash 09/30/2009 Nsaids (Non-Steroidal Other - See comments 08/23/2017 Severe abdominal pain Anti-Inflammatory Drug) Penicillins Rash 09/30/2009 Sulfur Shortness of Breath 09/30/2009 documented as of this encounter (statuses as of 08/24/2019) Medications Medication Sig Dispensed Refills Start Date End Date Status ESGIC-PLUS 50-500-40 1 tab prn 0 Active MG ORAL TAB migraines aspirin 81 mg EC Take 81 mg by 0 Active tabletIndications: TID mouth daily. in morning and night Indications: TID in morning and night azelastine 137 mcg Use 1 [place] in 30 mL 2 08/23/2017 Active (0.1 [...] by mouth. 0 Active 145 mcg capsule fluconazole (DIFLUCAN) Take 1 tablet by 1 tablet 0 08/24/2019 08/24/2019 Active 150 mg mouth once now tabletIndications: for 1 dose. Mandi vaginitis documented as of this encounter (statuses as of 08/24/2019) Active Problems Problem Noted Date Nonintractable headache, unspecified chronicity patter n, unspecified 04/22/2018 headache type Pain of right hand 04/22/2018 Mass of hand, right 04/22/2018 Scalp mass 04/22/2018 Throat discomfort 08/15/2015 documented as of this encounter (statuses as of 08/24/2019) Immunizations Name Administration Dates Next Due Tdap [...] filedocumented in this encounter Visit Diagnoses Diagnosis Mandi vaginitis Candidiasis of vulva and vagina documented in this encounter Insurance Payer Benefit Plan Subscriber ID Effective Dates Phone Address Type / Group BCBS OF BCBS [facility] [id number] 2016-Martha [phone] [address] PPO/POS [place] - OUT OF t 7 [id number] [place] [address] documented as of this encounter
--- OUTSIDE RECORDS SUMMARY | 2019-10-28 17:29 | XMS REPORT | Summary of Care ---
:1955 Author Organization [facility] Address [address] [place] [id number] Care Team Providers Name Role Phone MD Ronald Primary Care Provider Encounter Details Date Type Department Care Team Description 08/24/2019 Patient Secure [facility] Family Pasquale Cardenas, Mandi vaginitis Medicine - [place] [employer] [place] [address] [place] [phone] Allergies Active Allergy Reactions Severity Noted [...] and night azelastine 137 mcg Use 1 [place] in 30 mL 2 08/23/2017 Active (0.1 [...] Address Type / Group BCBS OF BCBS [facility] [id number] 2016-Martha [phone] [address] PPO/POS [place] - OUT OF t 7 [id number] [place] [address] documented as of this encounter
--- OUTSIDE RECORDS SUMMARY | 2019-10-28 17:29 | XMS REPORT | Summary of Care ---
:1955 Author Organization [facility] [place] [facility] Address [address] [place] [address] Care Team Providers Name Role Phone MD Ronald Primary Care Provider Reason for Visit Reason Comments Assessment yeast infection with itching Encounter Details Date Type Department Care Team Description 08/21/2019 Telephone [facility] Family Km Cardenas MD Assessment (yeast Medicine - [place] [address] infection with itching [facility] [address] [place], [place] ) [place] [phone] Allergies Active Allergy Reactions Severity Noted [...] and night azelastine 137 mcg Use 1 [place] in 30 mL 2 08/23/2017 Active (0.1 [...] mouth. 0 Active 145 mcg capsule fluconazole 150 mg Take 1 tablet by 1 tablet 0 08/24/2019 Active tabletIndications: mouth once now Yeast infection for 1 dose. documented as of this encounter (statuses as [...] filedocumented in this encounter Visit Diagnoses Diagnosis Yeast infection - Primary Other and unspecified mycoses documented in this encounter Insurance Payer Benefit Plan Subscriber ID Effective Dates Phone Address Type / Group BCBS OF [facility] [id number] 2016-Martha [phone] [address] PPO/POS [place] - OUT OF t 7 [id number] [place] [address] documented as of this encounter
--- OUTSIDE RECORDS SUMMARY | 2019-10-28 17:30 | XMS REPORT | Summary of Care ---
:1955 Author Organization [facility] Address [address] [place] [address] Care Team Providers Name Role Phone MD Ronald Primary Care Provider Reason for Visit Reason Comments Results Encounter Details Date Type Department Care Team Description 09/15/[address] [facility] Family Medicine Pasquale Vazquez MD Results - [place] [address] [place] [address] [place] [address] [phone] Allergies Active Allergy Reactions Severity Noted Date Comments Iodine Rash 09/30/2009 Nsaids (Non-Steroidal Other - See comments 08/23/2017 Severe abdominal pain Anti-Inflammatory Drug) Penicillins Rash 09/30/2009 Sulfur Shortness of Breath 09/30/2009 documented as of this encounter (statuses as of 09/15/2019) Medications Medication Sig Dispensed Refills Start Date End Date Status ESGIC-PLUS 50-500-40 MG 1 tab prn 0 Active ORAL TAB migraines aspirin 81 mg EC Take 81 mg by 0 Active tabletIndications: TID mouth daily. in morning and night Indications: TID in morning and night azelastine 137 mcg (0.1 Use 1 [place] in 30 mL 2 08/23/2017 Active %) [...] as of this encounter (statuses as of 09/15/2019) Active Problems Problem Noted Date Nonintractable headache, unspecified chronicity patter n, unspecified 04/22/2018 headache type Pain of right hand 04/22/2018 Mass of hand, right 04/22/2018 Scalp mass 04/22/2018 Throat discomfort 08/15/2015 documented as of this encounter (statuses as of 09/15/2019) Immunizations Name Administration Dates Next Due Tdap [...] Health Maintenance Due Date Last Done Comments Breast Cancer Screening 05/14/2019 05/14/2018, (MAMMOGRAM) 02/01/2017 Zoster Recombinant Vaccine 02/11/2020 Postp oned from 2006 (SHINGRIX) (1 of 2) (Refused) INFLUENZA VACCINE (#1) 2020 Postponed from 02/01/2019 (Refused) DTaP,Tdap,and Td Vaccines (2 11/01/2025 11/02/2015 - Td) COLONOSCOPY 05/05/2029 05/05/2019 HEPATITIS C (HCV) SCREEN Completed 07/31/2019 PNEUMOCOCCAL 0-64 YEARS Aged Out No longe r eligible based COMBINED SERIES on patient's age to complete this to [facility] documented as of this encounter Results Not on filedocumented in this encounter Insurance Payer Benefit Plan Subscriber ID Effective Dates Phone Address Type / Group BCBS OF [facility] [id number] 2016-Martha [phone] [address] PPO/POS [place] - OUT OF t 7 [id number] [place] [address] documented as of this encounter
--- OUTSIDE RECORDS SUMMARY | 2019-10-28 17:30 | XMS REPORT | Summary of Care ---
:1955 Author Organization [facility] Address [address] [place] [address] Care Team Providers Name Role Phone MD Ronald Primary Care Provider Reason for Visit Reason Comments Assessment Encounter Details Date Type Department Care Team Description 10/28/2019 Telephone [facility] Family Medicine Pasquale Vazquez MD Assessment - [place] [address] [place] [address] [place] [address] [phone] Allergies Active Allergy Reactions Severity Noted Date Comments Iodine Rash 09/30/2009 Nsaids (Non-Steroidal Other - See comments 08/23/2017 Severe abdominal pain Anti-Inflammatory Drug) Penicillins Rash 09/30/2009 Sulfur Shortness of Breath 09/30/2009 documented as of this encounter (statuses as of 10/28/2019) Medications Medication Sig Dispensed Refills Start Date End Date Status ESGIC-PLUS 50-500-40 MG 1 tab prn 0 Active ORAL TAB migraines aspirin 81 mg EC Take 81 mg by 0 Active tabletIndications: TID mouth daily. in morning and night Indications: TID in morning and night azelastine 137 mcg (0.1 Use 1 [place] in 30 mL 2 08/23/2017 Active %) [...] as of this encounter (statuses as of 10/28/2019) Active Problems Problem Noted Date Nonintractable headache, unspecified chronicity patter n, unspecified 04/22/2018 headache type Pain of right hand 04/22/2018 Mass of hand, right 04/22/2018 Scalp mass 04/22/2018 Throat discomfort 08/15/2015 documented as of this encounter (statuses as of 10/28/2019) Immunizations Name Administration Dates Next Due Tdap [...] (SHINGRIX) (1 of 2) (Refused) INFLUENZA VACCINE (Season 02/17/2020 Postpo vu from 02/02/2020 Ended) (Refused) DTaP,Tdap,and Td Vaccines (2 11/01/2025 11/02/2015 - Td) COLONOSCOPY 05/05/2029 05/05/2019 HEPATITIS C (HCV) SCREEN Completed 07/31/2019 PNEUMOCOCCAL 0-64 YEARS Aged Out No longe r eligible based COMBINED SERIES on patient's age to complete this to [facility] documented as of this encounter Results Not on filedocumented in this encounter Insurance Payer Benefit Plan Subscriber ID Effective Dates Phone Address Type / Group [facility] [id number] 2016-Martha [phone] [address] PPO/POS [place] - OUT OF t 7 [id number] [place] [address] documented as of this encounter
--- OUTSIDE RECORDS SUMMARY | 2019-10-28 17:30 | XMS REPORT | Summary of Care ---
:[address] [facility] Address [address] [place] [address] Care Team Providers Name Role Phone MD Ronald Primary Care Provider Reason for Visit Reason Comments Rx Concern/Question Encounter Details Date Type Department Care Team Description 08/24/2019 Telephone [facility] Family Km Cardenas MD Rx Concern/Question Medicine - [place] [address] [place] [phone] Allergies Active Allergy Reactions Severity Noted Date [...] and night azelastine 137 mcg Use 1 [place] in 30 mL 2 08/23/2017 Active (0.1 [...] now tabletIndications: for 1 dose. Mandi vaginitis fluconazole 150 mg Take 1 tablet by [...] [facility] [id number] 2016-Martha [phone] [address] PPO/POS [place] - OUT OF t 7 [id number] [place] [address] documented as of this encounter
[2019-10-28] MEDS ORDERED: predniSONE 20 MG TAB ONE (18:16)
[2019-10-28] MEDS ORDERED: FAMOTIDINE 20 MG TAB ONE (18:16)
--- NOTE | 2019-10-28 20:56 | RAD REPORT ---
EXAM DESCRIPTION: US - Extremity Venous Uni Ltd - 10/28/2019 8:28 pm CLINICAL HISTORY: PAIN COMPARISON: None. TECHNIQUE: Real-time sonographic evaluation of the left lower extremity deep venous system was perfo rmed. FINDINGS: Normal compressibility, flow augmentation, phasic flow and spontaneous flow are identified in the left lower extremity common femoral, superficial femoral, popliteal and posterior tibial vein s. No intraluminal filling defects seen. IMPRESSION: No DVT in the left lower extremity.
[2019-10-28 21:23] VITALS: BP 154/93; TEMP 98; O2SAT 96
--- NOTE | 2019-11-02 14:50 | EDPHYS ---
Physician Documentation [facility] Name: Valorie Fairchild Age: 64 yrs Sex: Female : 1955 Arrival Date: 10/28/2019 Time: 16:40 Bed 5 Private MD: Pasquale Cardenas S ED Physician Hima Trevino HPI: 10/27 18:10 This 64 yrs old Female presents to ER via Ambulatory with complaints of Leg snw Pain. 18:10 The patient presents with pain, that is acute. The complaints affect the medial aspect snw of left thigh and medial aspect of left knee. Context: The problem was sustained at home. Onset: The symptoms/episode began/occurred suddenly, 3 day(s) ago, and became persistent. Associated signs and symptoms: Pertinent positives: pt states she experienced some sob prior to leg pain. Treatment prior to arrival includes: "popping aspirin". Severity of symptoms: At their worst the symptoms were moderate. The patient has not experienced similar symptoms in the past. It is unknown whether or not the patient has recently seen a physician. Historical: - Allergies: 16:48 all pain meds; ll1 16:48 food allergies; ll1 16:48 IV contrast; ll1 16:48 NSAIDS; ll1 16:48 PENICILLINS; ll1 16:48 Yailrji-Giq-Nxk Reductase Inhibitors; ll1 16:48 Sulfa (Sulfonamide Antibiotics); ll1 - PMHx: 16:48 ibs; Migraines; ll1 - PSHx: 16:48 colonoscopy; Appendectomy; Hysterectomy; ll1 - Immunization history:: Flu vaccine is not up to date. - Social history:: Smoking status: Patient denies any tobacco usage or history of. Patient/guardian denies using alcohol, street drugs, tobacco products. ROS: 18:10 Constitutional: Negative for fever, chills, and weight loss, Eyes: Negative for injury, snw pain, redness, and discharge, ENT: Negative for injury, pain, and discharge, Neck: Negative for injury, pain, and swelling, Cardiovascular: Negative for chest pain, palpitations, and edema, Respiratory: Negative for shortness of breath, cough, wheezing, and pleuritic chest pain, Abdomen/GI: Negative for abdominal pain, nausea, vomiting, diarrhea, and constipation, Back: Negative for injury and pain, : Negative for injury, bleeding, discharge, and swelling, Skin: Negative for injury, rash, and discoloration, Neuro: Negative for headache, weakness, numbness, tingling, and seizure, Psych: Negative for depression, anxiety, suicide ideation, homicidal ideation, and hallucinations. 18:10 MS/extremity: Positive for pain, of the medial aspect of left thigh and medial aspect of left knee. Exam: 18:07 Constitutional: This is a well developed, well nourished patient who is awake, alert, snw and in no acute distress. Head/Face: Normocephalic, atraumatic. Eyes: Pupils equal round and reactive to light, extra-ocular motions intact. Lids and lashes normal. Conjunctiva and sclera are non-icteric and not injected. Cornea within normal limits. Periorbital areas with no swelling, redness, or edema. Neck: Trachea midline, no thyromegaly or masses palpated, and no cervical lymphadenopathy. Supple, full range of motion without nuchal rigidity, or vertebral point tenderness. No Meningismus. Chest/axilla: Normal chest wall appearance and motion. Nontender with no deformity. No lesions are appreciated. Cardiovascular: Regular rate and rhythm with a normal S1 and S2. No gallops, murmurs, or rubs. Normal PMI, no JVD. No pulse deficits. Respiratory: Lungs have equal breath sounds bilaterally, clear to auscultation and percussion. No rales, rhonchi or wheezes noted. No increased work of breathing, no retractions or nasal flaring. Abdomen/GI: Soft, non-tender, with normal bowel sounds. No distension or tympany. No guarding or rebound. No evidence of tenderness throughout. Back: No spinal tenderness. No costovertebral tenderness. Full range of motion. Skin: Warm, dry with normal turgor. Vitiligo with no rashes, no lesions, and no evidence of cellulitis. Neuro: Awake and alert, GCS 15, oriented to person, place, time, and situation. Cranial nerves II-XII grossly intact. Motor strength 5/5 in all extremities. Sensory grossly intact. Cerebellar exam normal. Normal gait. Psych: Awake, alert, with orientation to person, place and time. Behavior, mood, and affect are within normal limits. 18:07 ENT: External ear(s): are unremarkable, Posterior pharynx: Uvula: edematous. 18:07 Musculoskeletal/extremity: ROM: no acute changes, Pulses: are normal with no appreciated deficits, paint to medial left leg just proximal to knee Vital Signs: 16:44 BP 154 / 93; Pulse 89; Resp 18; Temp 98.0; Pulse Ox 96% ; Pain 4/10; ll1 MDM: 17:56 Patient medically screened. snw 20:55 Data reviewed: vital signs, nurses notes. Data interpreted: Pulse oximetry: on room air snw is 96 %. Interpretation: acceptable. Counseling: I had a detailed discussion with the patient and/or guardian regarding: the historical points, exam findings, and any diagnostic results supporting the discharge/admit diagnosis, radiology results, the need for outpatient follow up, to return to the emergency department if symptoms worsen or persist or if there are any questions or concerns that arise at home. Special discussion: I have referred the patient to see his PCP for further evaluation of high blood pressure. Based on the history and exam findings, there is no indication for further emergent testing or inpatient evaluation. I discussed with the patient/guardian the need to see the primary care provider for further evaluation of the symptoms. 10/27 18:07 Order name: Extremity Venous Uni Ltd ; Complete Time: 21:03 snw Administered Medications: 18:13 Drug: predniSONE 40 mg Route: PO; sv 18:28 Follow up: Response: No adverse reaction sv 18:13 Drug: Pepcid 20 mg Route: PO; sv 18:28 Follow up: Response: No adverse reaction sv Disposition: 10/28 09:53 Co-signature as Attending Physician, Hima Trevino MD I agree with the assessment and kdr plan of care. Disposition: 10/28/19 20:51 Discharged to Home. Impression: Pain in left leg, Acute pharyngitis. - Condition is Stable. - Discharge Instructions: Muscle Pain, Adult, Sore Throat. - Prescriptions for Prednisone 20 mg Oral Tablet - take 2 tablet by ORAL route once daily for 5 days; 10 tablet. Pepcid 20 mg Oral Tablet - take 1 tablet by ORAL route once daily; 20 tablet. - Medication Reconciliation Form, Thank You Letter, Antibiotic Education, Prescription Opioid Use form. - Follow up: Emergency Department; When: As needed; Reason: Worsening of condition. Follow up: Private Physician; When: 1 - 2 days; Reason: Recheck today's complaints, Continuance of care, Re-evaluation by your physician. - Problem is new. - Symptoms are unchanged. Signatures: Dispatcher [employer] EDKelly Rossi, RN RN Hima Trevino MD MD [facility] Cherrie Argueta, DIVISION CHAIR-C DIVISION CHAIR-Csnw Israel Gomez RN RN jb4 Mirna Bell RN RN ll1 Corrections: (The following items were deleted from the chart) 10/27 20:51 20:51 10/28/2019 20:51 Discharged to Home. Impression: Pain in left leg. Condition is snw Stable. Forms are Medication Reconciliation Form, Thank You Letter, Antibiotic Education, Prescription Opioid Use. Follow up: Emergency Department; When: As needed; Reason: Worsening of condition. Follow up: Private Physician; When: 1 - 2 days; Reason: Recheck today's complaints, Continuance of care, Re-evaluation by your physician. Problem is new. Symptoms are unchanged. snw 21:18 20:51 10/28/2019 20:51 Discharged to Home. Impression: Pain in left leg; Acute jb4 pharyngitis. Condition is Stable. Forms are Medication Reconciliation Form, Thank You Letter, Antibiotic Education, Prescription Opioid Use. Follow up: Emergency Department; When: As needed; Reason: Worsening of condition. Follow up: Private Physician; When: 1 - 2 days; Reason: Recheck today's complaints, Continuance of care, Re-evaluation by your physician. Problem is new. Symptoms are unchanged. snw
--- NOTE | 2019-11-02 14:50 | ER ---
Nurse's Notes [facility] Name: Valorie Fairchild Age: 64 yrs Sex: Female : 1955 Arrival Date: 10/28/2019 Time: 16:40 Bed 5 Private MD: Pasquale Cardenas S Diagnosis: Pain in left leg;Acute pharyngitis Presentation: 10/27 16:44 Chief complaint: Patient states: Here for left posterior thigh pain for 3 days. States ll1 she wants to be checked for blood clot. No trauma or falls. Coronavirus screen: Proceed with normal triage. Patient denies a cough. Patient denies shortness of breath or difficulty breathing. Patient denies measured and/or subjective temperature greater than 100.4F prior to today's visit. Patient denies travel on a cruise ship or to a country the [facility] currently lists as an affected area. Patient denies contact with known and/or suspected case of COVID-19. Ebola Screen: Patient denies travel to an Ebola-affected area in the 21 days before illness onset. Initial Sepsis Screen: Does the patient meet any 2 criteria? No. Patient's initial sepsis screen is negative. Does the patient have a suspected source of infection? No. Patient's initial sepsis screen is negative. Risk Assessment: Do you want to hurt yourself or someone else? Patient reports no desire to harm self or others. Onset of symptoms was October 25, 2019. 16:44 Method Of Arrival: Ambulatory ll1 16:44 Acuity: [place] 4 ll1 Historical: - Allergies: 16:48 all pain meds; ll1 16:48 food allergies; ll1 16:48 IV contrast; ll1 16:48 NSAIDS; ll1 16:48 PENICILLINS; ll1 16:48 Xekohnx-Sfn-Yes Reductase Inhibitors; ll1 16:48 Sulfa (Sulfonamide Antibiotics); ll1 - PMHx: 16:48 ibs; Migraines; ll1 - PSHx: 16:48 colonoscopy; Appendectomy; Hysterectomy; ll1 - Immunization history:: Flu vaccine is not up to date. - Social history:: Smoking status: Patient denies any tobacco usage or history of. Patient/guardian denies using alcohol, street drugs, tobacco products. Screenin:10 Abuse screen: Denies threats or abuse. Denies injuries from another. Nutritional sv screening: No deficits noted. Tuberculosis screening: No symptoms or risk factors identified. Fall Risk None identified. Assessment: 18:05 General: Appears in no apparent distress. comfortable, well developed, Behavior is sv calm, cooperative, appropriate for age. Pain: Complains of pain in left hamstring Pain currently is 4 out of 10 on a pain scale. Pain began 1 day ago. Is intermittent. Neuro: Level of Consciousness is awake, alert, obeys commands, Oriented to person, place, time, situation, Moves all extremities. Full function Gait is steady, Speech is normal. Respiratory: Reports shortness of breath 2 days ago but none today Airway is patent Respiratory effort is even, unlabored, Respiratory pattern is regular, symmetrical. Derm: Skin is intact, Skin is pink, warm \T\ dry. 18:10 Reassessment: US called out for testing. sv 19:08 Reassessment: Patient appears in no apparent distress at this time. Patient and/or jb4 family updated on plan of care and expected duration. Pain level reassessed. Patient is alert, oriented x 3, equal unlabored respirations, skin warm/dry/pink. PT ambulated to restroom with steady gait. 20:27 Reassessment: Patient appears in no apparent distress at this time. Patient and/or jb4 family updated on plan of care and expected duration. Pain level reassessed. Patient is alert, oriented x 3, equal unlabored respirations, skin warm/dry/pink. PT is back from ultrasound. Vital Signs: 16:44 BP 154 / 93; Pulse 89; Resp 18; Temp 98.0; Pulse Ox 96% ; Pain 4/10; ll1 ED Course: 16:40 Patient arrived in ED. mr 16:41 Pasquale Cardenas MD is Private Physician. mr 16:47 Triage completed. ll1 16:48 Arm band placed on Patient notified of wait time. ll1 17:37 Cherrie Argueta FNP-C [facility]. snw 17:37 Hima Trevino MD is Attending Physician. snw 17:57 Kelly Frias RN is Primary Nurse. sv 18:10 Patient has correct armband on for positive identification. Placed in gown. Bed in low sv position. Call light in reach. Door closed. Warm blanket given. Head of bed elevated. 19:03 Report given to Kalen GAMING and Jarrod GAMING. sv 19:05 Primary Nurse role handed off by Kelly Frias RN 19:08 Israel Gomez, RN is Primary Nurse. jb4 19:24 No provider procedures requiring assistance completed. Patient did not have IV access mg2 during this emergency room visit. 20:28 Extremity Venous Uni Ltd US In Process Unspecified. EDMS Administered Medications: 18:13 Drug: predniSONE 40 mg Route: PO; sv 18:28 Follow up: Response: No adverse reaction sv 18:13 Drug: Pepcid 20 mg Route: PO; sv 18:28 Follow up: Response: No adverse reaction sv Outcome: 20:51 Discharge ordered by . snw 21:18 Patient left the ED. jb4 Signatures: Dispatcher [employer] EDMS Kelly Frias, RN RN EllieCherrie, POWDERED SUGAR PULVERIZER OPERATOR-C POWDERED SUGAR PULVERIZER OPERATOR-Csnw Joe Ana mr Israel Gomez RN RN jb4 Kalen Mcgowan RN MEKHI [facility] Mirna Bell RN RN ll1 Corrections: (The following items were deleted from the chart) 16:50 16:44 Chief complaint: Patient states: Here for left posterior thigh pain for 3 days. ll1 States she wants to be checked for blood clot. ll1 18:28 18:05 Reassessment: US called out for testing sv sv
== END 2019-10-28 21:18 | disposition home or self-care (01) ==
LOC: ER 16:36
DX: M79.605 Pain in left leg (principal); J02.9 Acute pharyngitis, unspecified; Z88.0 Allergy status to penicillin; Z88.6 Allergy status to analgesic agent; Z88.7 Allergy status to serum and vaccine; Z88.8 Allergy status to other drugs, medicaments and biological substances; Z91.018 Allergy to other foods; Z91.041 Radiographic dye allergy status
CPT/HCPCS: 93971; 99283; J7512

== ENCOUNTER 2020-03-22 10:50 | Emergency (ER) | payer BC ==
[2020-03-22 11:39] LABS: Absolute Lymphocytes (CBC) 3.2 K/uL (0.7-4.9); Basophils % 0.4 % (0-1.3); Hematocrit 45.8 % (36.0-45.0); Lymphocytes % 25.8 % (15.3-44.8); RBC Red Blood Cell Count 5.34 M/uL (3.86-4.86)
[2020-03-22 11:43] LABS: Protime INR 1.06
[2020-03-22] MEDS ORDERED: PANTOPRAZOLE 40 MG INJ ONE (11:43)
--- OUTSIDE RECORDS SUMMARY | 2020-03-22 11:50 | XMS REPORT | Continuity of Care Document ---
:1955 Author Organization [employer] [facility] Care Team Providers Name Role Phone [employer] [facility] Unavailable Un available Problems Problem Status Onset Classification Date Comments Sourc e Date Reported BDDC- ABD PAIN, Active 12/06/19 [place] BLOATING, IBS, 17 Medic al NAUSEA, E Center BDDC- ABD Active 12/06/19 [facility] FULLNESS R19.8; 17 [facility] GASTROPARESIS Center CONSULT Active 10/27/[address] Chronic Resolved Problem 01/22/2020 [facility] constipation Neuro,M H (disorder) [facility] Constipation Active Problem 01/22/2020 Mische r (disorder) Neuro,[facility] Cyst of breast Resolved Problem 01/22/2020 Misc her (disorder) Neuro,[facility] History of Resolved Problem 01/22/2020 [facility] irritable bowel Neur o, syndrome [place] (situation) [facility] Hyperlipidemia Active Problem 01/22/2020 Misc her (disorder) Neuro Lesion of eye Active Problem 01/22/2020 Misch er structure Neuro, (finding) [facility] Migraine Active Problem 01/22/2020 [facility] (disorder) Neuro,[facility] Paresthesia Active Problem 01/22/2020 [facility] (finding) Neuro Vertigo (finding) Active Problem 01/22/2020 [facility] Neuro Medications Medication Details Route Status Patient Ordering Order Source Instructions Provider Date Docusate Sodium 200 mg = 2 [place] 100 MG Oral cap, PO, 017 Medical Capsule Daily, with [place] plenty of water take at bedtime, # 60 cap, 1 Refill(s), Pharmacy: [facility] 256 Ascorbic Acid See Active [facility] 4.7 MG/ML / Instructions 017 Medical POLYETHYLENE , as Center GLYCOL 3350 100 directed in MG/ML / clinic, # 1 Potassium ea, 0 Chloride 0.0136 Refill(s), MEQ/ML / Sodium Pharmacy: [facility] 5.9 [facility] MG/ML / Sodium [facility] Chloride 0.046 256 MEQ/ML / sodium sulfate 7.5 MG/ML Oral Solution [MoviPrep] Benadryl 0 Refill(s) Active [address] Center Aspirin 81 MG 81 mg = 1 Active [facility] Chewable Tablet tab, PO, 017 Medical [...] Comments Source Systolic (mm Hg) 127 04/15/2019 [facility] Yusuf ro Diastolic (mm Hg) 98 04/15/2019 [facility] Ne uro Heart Rate 75 04/15/2019 [facility] Neuro Respitory Rate 16 04/15/2019 [facility] Neuro Height 157.48 cm 04/15/2019 [facility] Neuro Weight 66.818 04/15/2019 [facility] Neuro BMI Calculated 26.94 04/15/2019 [facility] Neuro Systolic (mm Hg) 123 03/24/2019 [facility] Yusuf ro Diastolic (mm Hg) 85 03/24/2019 [facility] Ne uro Heart Rate 74 03/24/2019 [facility] Neuro Respitory Rate 16 03/24/2019 [facility] Neuro Height 165.1 cm 03/24/2019 [facility] Neuro Weight 65.909 03/24/2019 [facility] Neuro BMI Calculated 24.18 03/24/2019 [facility] Neuro Systolic (mm Hg) 132 01/21/2019 [facility] Yusuf ro Diastolic (mm Hg) 82 01/21/2019 [facility] Ne uro Heart Rate 77 01/21/2019 [facility] [...] 04/01/2018 [facility] Yusuf ro Diastolic (mm Hg) 91 04/01/2018 [facility] Ne uro Heart Rate 89 04/01/2018 [facility] Neuro Respitory Rate 16 04/01/2018 [facility] Neuro Weight 68.182 12/05/2016 [facility] BMI Calculated 27.05 12/05/2016 [facility] Height 158.75 cm 12/05/2016 [facility] Heart Rate 66 12/05/2016 [facility] Respitory Rate 16 12/05/2016 [facility] Systolic (mm Hg) 127 12/05/2016 [facility] Diastolic (mm Hg) 80 12/05/2016 [facility] Encounters Location Location Encounter Encounter Reason Attending ADM DC Stat us Source Details Type Number For Provider Date Date Visit [facility] [id number] Catia Haywood 12/05 12/06 [facility] /2016 [facility] Center Outpatient [id number] ISMAEL 02/18 [facility] [place] Outpatient [id number] ISMAEL 04/01 [facility] MNA Outpatient [id number] Ismael 04/01 04/02 [facility] Neurology [facility] /2017 [facility] [place] MNA Outside [id number] 06/12 06/14 [facility] Neurology [facility] /2018 Neuro [place] Records Outpatient [id number] ISMAEL 07/23 Active [facility] [place] Outpatient [id number] Ismael 01/21 Active [facility] MNA Outpatient [id number] Ismael 01/21 01/22 [facility] Neurology [facility] /2018 Neuro [place] Outpatient [id number] Ismael 03/24 Active [facility] MNA Outpatient [id number] Ismael 03/24 03/25 [facility] Neurology [facility] /2018 Neuro [place] Outpatient [id number] Ismael 04/15 [facility] [place] [facility] Outpatient [id number] Ismael 04/15 04/16 [facility] Kre [facility] [place] Outpatient [id number] Ismael 04/23 Active [facility] MNA Ambulatory [id number] Ismael 04/23 04/23 [facility] Pre-Reg Kre Neuro [place] Outpatient [id number] Ismael 08/18 Active [facility] MNA Ambulatory [id number] Ismael 08/18 08/18 [facility] Pre-Reg [place] Neuro [place] Outpatient [id number] Ismael 01/19 Active [facility] MNA Ambulatory [id number] Solomon Cardenas 01/19 01/19 [facility] Neu[facility] Pre-Reg Neuro [place] Procedures Procedure Code Date Perfomer Comments Source Appendectomy [id number] [facility] Neur o Excision of cyst of [id number] Misch er breast Neuro,[facility] [id number] [facility] Assessment and Plan No Data Provided for [...] entered on: 04/15/19 Social History TypeResponse 12/05/2016 [facility] Alcohol Current, Type Liquor. Frequency: 1-2 times [...]
--- OUTSIDE RECORDS SUMMARY | 2020-03-22 11:50 | XMS REPORT | Summary of Care ---
:1955 Author Organization [facility] Neurology [place] Address [address] [place] [address]- Encounter HQ Encntr_aliyane(FIN) [id number] Date(s): 01/20/20 - 01/20/20 [facility] [address] [place] [address]- [phone] Attending Physician: Janak Ayoub MD Referring Physician: Solomon Cardenas MD Vital Signs No data available for [...]
--- OUTSIDE RECORDS SUMMARY | 2020-03-22 11:50 | XMS REPORT | Continuity of Care Document ---
:1955 Author Organization [facility] t Address [address] [place] [address] Care Team Providers Name Role Phone Lab, Fam Pob I Attending Clinician Unavailable Nba Ayoub Attending Clinician Roby Walsh MD Attending Clinician Solomon Fitch MD Attending Clinician Fredy Haywood Attending Clinician Problems Condition Condition Condition Status Onset Resolution Last Treating Co mments Source Name Details Category Date Date Treatment Clinician Date BDDC- ABD Diagnosis Active 2017-01-28 [facility] PAIN, 12-05 15:15:00 l BLOATING, BDDC- 00:00: Neftali n IBS, ABD PAIN, 00 NAUSEA, E BLOATING, IBS, NAUSEA, E Active 12/05/2016 [facility] BDDC- ABD Diagnosis Active 2016-12-14 Memoria FULLNESS 12-05 08:44:00 l R19.8; BDDC- 00:00: [facility] GASTROPARE ABD 00 SIS FULLNESS R19.8; GASTROPARE SIS Active 12/05/2016 [facility] CONSULT Diagnosis Active 2016-12-05 Me moria 10-26 11:17:00 l CONSULT 00:00: [place] 00 Active 10/26/2016 [facility] Chronic Problem Resolve 2020-01-22 Mem oria constipati d 21:45:54 l on Chronic [place] (disorder) constipati on (disorder) Resolved Problem 01/22/2020 Marko [facility] Cyst of Problem Resolve 2020-01-22 Mem oria breast d 21:45:54 l (disorder) Cyst of Her alonzo breast (disorder) Resolved Problem 01/22/2020 [facility] History of Problem Resolve 2020-01-22 Memoria irritable d 21:45:54 l bowel History [place] syndrome of (situation irritable ) bowel syndrome (situation ) Resolved Problem 01/22/2020 [facility] Constipati Problem Active 2020-01-22 M emoria on 21:45:54 l (disorder) Neftali n Constipati on (disorder) Active Problem 01/22/2020 [facility] Hyperlipid Problem Active 2020-01-22 M emoria emia 21:45:54 l (disorder) Neftali n Hyperlipid emia (disorder) Active Problem 01/22/2020 [facility] Lesion of Problem Active 2020-01-22 Me moria eye 21:45:54 l structure Lesion Aissatou nn (finding) of eye structure (finding) Active Problem 01/22/2020 [facility] Migraine Problem Active 2020-01-22 Mem oria (disorder) 21:45:54 l Migraine Neftali n (disorder) Active Problem 01/22/2020 [facility] Paresthesi Problem Active 2020-01-22 M emoria a 21:45:54 l (finding) [facility] Paresthesi a (finding) Active Problem 01/22/2020 [facility] Vertigo Problem Active 2020-01-22 Don kalia (finding) 21:45:54 l Vertigo [place] (finding) Active Problem 01/22/2020 [facility] Allergies, Adverse Reactions, Alerts Allergy Allergy Status Severity Reaction(s) Onset Inactive Treating Comm ents Source Name Type Date Date Clinician penicill penicill Active Memori a ins ins l [place] sulfa sulfa Active Severe Memoria drugs drugs l [facility] naproxen naproxen Active Memori a l [place] morphine morphine Active Memori a l [place] Zomig Zomig Active Memoria l [place] Demerol Demerol Active Memoria HCl HCl l [place] NSAIDs NSAIDs Active Memoria l [place] statins statins Active Memoria l [place] contrast contrast Active Memori a media media l (iodine- (iodine- Neftali n based) based) Social History Social Habit Start Date Stop Date Quantity Comments Source Social History 2016-12-05 2016-12-05 [facility] ermann 16:26:17 16:26:17 Medications Ordered Filled Start Stop Current Ordering Indication Dosage Frequency Signature Comments Components Source Medication Medication Date Date Medication? Clinician (SIG) Name Name Herman Yes 200 mg = 2 Mem oria Sodium 100 7-05 cap, PO, l MG Oral 17:40: Daily, [place] Capsule 00 with plenty of water take at bedtime, # 60 cap, 1 Refill(s), Pharmacy: [facility] 256 Ascorbic Yes See Memoria Acid 4.7 7-05 Instructio l MG/ML / 17:32: ns, as [place] POLYETHYLEN 00 directed E GLYCOL in clinic, 3350 100 # 1 ea, 0 MG/ML / Refill(s), Potassium Pharmacy: Chloride [facility] 0.[facility]36 [place] MEQ/ML / 256 Sodium Ascorbate 5.9 MG/ML / Sodium Chloride 0.046 MEQ/ML / sodium sulfate 7.5 MG/ML Oral Solution [MoviPrep] Benadryl Yes 0 Memoria 7-05 Refill(s) l 16:26: [place] 00 Aspirin 81 Yes 81 mg = 1 Me moria MG Chewable 7-05 tab, PO, l Tablet 16:26: TID, 0 [place] 00 Refill(s) Vital Signs Vital Name Observation Time Observation Value Comments Source Systolic (mm Hg) 2019-04-15 14:35:00 Don johan [place] Diastolic (mm Hg) 2019-04-15 14:[facility] 2019-04-15 14:35:00 [facility] Resp[facility] Rate 2019-04-15 14:35:00 Gui Durant Height 2019-04-15 14:35:00 157.48 cm [facility] Weight 2019-04-15 14:35:00 [facility] BMI Calculated 2019-04-15 14:35:00 Gui al [place] Systolic (mm Hg) 2019-03-24 14:45:00 Don rial [place] Diastolic (mm Hg) 2019-03-24 14:45:00 [facility] Heart Rate 2019-03-24 14:45:00 [facility] Respitory Rate 2019-03-24 14:45:00 Memori al [place] Height 2019-03-24 14:45:00 165.1 cm [facility] Weight 2019-03-24 14:45:00 [facility] BMI Calculated 2019-03-24 14:45:00 Memori al [place] Systolic (mm Hg) 2019-01-21 18:18:00 Don rial [place] Diastolic (mm Hg) 2019-01-21 18:18:00 Mem orial [place] Heart Rate 2019-01-21 18:18:00 [facility] Respitory Rate 2019-01-21 18:18:00 Memori al [place] Height 2019-01-21 18:18:00 157.48 cm [facility] Weight 2019-01-21 18:18:00 [facility] BMI Calculated 2019-01-21 18:18:00 Memori al [place] BMI Calculated 2018-04-01 19:09:00 Memori al [place] Weight 2018-04-01 19:09:00 [facility] [place] Height 2018-04-01 19:09:00 157.48 cm [facility] Systolic (mm Hg) 2018-04-01 19:09:00 Don rial [place] Diastolic (mm Hg) 2018-04-01 19:09:00 Mem orial [place] Heart Rate 2018-04-01 19:09:00 [facility] Respitory Rate 2018-04-01 19:09:00 Memori al [place] Weight 2016-12-05 16:14:00 [facility] BMI Calculated 2016-12-05 16:14:00 Memori al [place] Height 2016-12-05 16:14:00 158.75 cm [facility] Heart Rate 2016-12-05 16:14:00 [facility] Respitory Rate 2016-12-05 16:14:00 Memori al [place] Systolic (mm Hg) 2016-12-05 16:14:00 Don rial [place] Diastolic (mm Hg) 2016-12-05 16:14:00 Mem orial [place] Procedures Procedure Date / Time Performed Performing Clinician Autumn e Appendectomy [facility] Excision of cyst of [facility] breast Total hysterectomy [facility] josafat Encounters Start End Encounter Admission Attending Care Care Encounter Source Date/Time Date/Time Type Type Clinicians Facility Department ID 2020-03-16 2020-03-16 Laboratory Lab, Adc [facility] [id number] 18:40:41 19:00:41 Only Fam [facility] [id number] [place] [id number] Professio [id number] [place] [address] [address] 2020-01-20 2020-01-20 Outpatient Kremarissa, MHMISCHER MHMISCHER [id number] 13:15:00 13:15:00 Janak 04 [facility] 2020-01-13 2020-01-13 [facility] [id number] 00:00:00 00:00:00 [facility] [id number] Edleonid [place] [id number] Professio [id number] nal 044 Office Building One 2019-12-17 2019-12-21 [facility] [id number] 13:07:32 01:18:43 Visit Sera Carbajal [place] [id number] [place] [id number] 2019-08-19 2019-08-19 Outpatient Angelll, MHMISCHER MHMISCHER [id number] 13:15:00 13:15:00 Janak 08 [facility] 2019-04-23 2019-04-23 Outpatient Angelll, MHMISCHER MHMISCHER [id number] 15:30:00 15:30:00 Janak 06 [facility] 2019-04-15 2019-04-15 Outpatient Anitra, MHMISCHER MHMISCHER [id number] 08:30:00 23:59:59 Janak 07 [facility] 2019-03-24 2019-03-24 Outpatient Angelll, MHMISCHER MHMISCHER [id number] 09:00:00 23:59:59 Janak 05 [facility] 2019-01-21 2019-01-21 Outpatient Angelll, MHMISCHER MHMISCHER [id number] 13:15:00 23:59:59 Janak 03 Nba 2018-06-12 2018-06-13 Outpatient MHMISCHER MHMISCHER [id number] 15:33:00 23:59:59 2018-04-01 2018-04-01 Outpatient Angelll, MHMISCHER MHMISCHER [id number] 14:00:00 23:59:59 Janak 01 Nba 2016-12-05 2016-12-05 Outpatient Catia [facility] [id number] 11:04:00 23:59:00 Godfreyah 00 Results This patient has no known results.
--- OUTSIDE RECORDS SUMMARY | 2020-03-22 11:50 | XMS REPORT | Summary of Care ---
:1955 Author Organization [facility] Address [address] [place] [address] Care Team Providers Name Role Phone MD Ronald Primary Care Provider Reason for Visit Reason Comments Refill Request Encounter Details Date Type Department Care Team Description 01/13/2020 Refill [facility] Family Medicine Thi varela, Israel Ca MD Refill Request - [address] [place] [address] [place] [address] [place] [address] [phone] Allergies Active Allergy Reactions Severity Noted Date Comments Adhesive Tape-Silicones Rash 12/17/2019 Iodine Rash 09/30/2009 Nsaids (Non-Steroidal Other - See comments 08/23/2017 Severe abdominal pain Anti-Inflammatory Drug) Penicillins Rash 09/30/2009 Sulfur Shortness of Breath 09/30/2009 documented as of this encounter (statuses as of 01/14/2020) Medications Medication Sig Dispensed Refills Start Date End Date Status ESGIC-PLUS 50-500-40 1 tab prn 0 Active MG ORAL TAB migraines aspirin 81 mg EC Take 81 mg by 0 Active tabletIndications: mouth daily. TID in morning and Indications: night TID in morning and night azelastine 137 mcg Use 1 [place] in 30 mL 2 08/23/2017 Active (0.1 %) nasal each nostril 2 sprayIndications: (two) times Acute seasonal daily. Use in allergic rhinitis due each nostril to pollen as directed potassium chloride Take 1 tablet 30 tablet 5 08/23/2017 Active (KLOR-CON 10) 10 mEq by mouth CR tabletIndications: daily. Edema, unspecified type diphenhydramine HCl Take by 0 Active (BENADRYL ALLERGY mouth. ORAL) ammonium lactate 12 % Apply BID as 140 g 1 04/08/2019 Active creamIndications: needed for dry Xeroderma skin omeprazole 20 mg Take 20 mg by 0 05/21/2019 Active capsule mouth daily. linaCLOtide (LINZESS) Take by 0 Active 145 mcg capsule mouth. mupirocin 2 % Apply to 22 g 0 12/17/2019 Activ e ointmentIndications: area(s) 2 Nasal sore (two) times daily. triamcinolone Apply to 80 g 0 12/17/2019 Activ e acetonide 0.1 % area(s) 2 ointmentIndications: (two) times Skin rash, Insect daily. bite without infection albuterol 90 Inhale 2 Puffs 8.5 g 2 12/17/2019 A ctive mcg/actuation every 6 (six) inhalerIndications: hours as Asthma, unspecified needed for asthma severity, Wheezing or unspecified whether Shortness of complicated, Breath. unspecified whether persistent LASIX 20 mg TAKE ONE 30 tablet 4 01/14/2020 Active tabletIndications: TABLET BY Edema, unspecified MOUTH DAILY type NEEDED FOR SWELLING LASIX 20 mg TAKE ONE 30 tablet 4 12/22/2018 Discont inued tabletIndications: TABLET BY 0 Edema, unspecified MOUTH DAILY type NEEDED FOR SWELLING documented as of this encounter (statuses as of 01/14/2020) Active Problems Problem Noted Date Nonintractable headache, unspecified chronicity patter n, unspecified 04/22/2018 headache type Pain of right hand 04/22/2018 Mass of hand, right 04/22/2018 Scalp mass 04/22/2018 Throat discomfort 08/15/2015 documented as of this encounter (statuses as of 01/14/2020) Immunizations Name Administration Dates Next Due TDAP 11/02/2015 documented as of this encounter Social History Tobacco Use Types Packs/Day Years Used Date Never Smoker Smokeless Tobacco: Never Used Alcohol Use Drinks/Week oz/Week Comments No Sex Assigned at Date Recorded Not on file COVID-19 Exposure Response Date Recorded In the last month, have you been in contact with No / Unsure 12/17/2019 1:10 PM CDT someone who was confirmed or suspected to have Coronavirus / COVID-19? documented as of this encounter Last Filed Vital Signs Not on filedocumented in this encounter Plan of Treatment Date Type Specialty Care Team Description 05/05/2020 Office Visit Family Medicine Pasquale Cardenas MD [address] [place] [address] [phone] Health Maintenance Due Date Last Done Comments PNEUMOCOCCAL 0-64 YEARS 1961 COMBINED SERIES (1 of 1 - PPSV23) COLON CANCER SCREENING ANNUAL 2006 FIT/FOBT COLON CANCER SCREENING FIT 2006 DNA EVERY 3 YEARS COLON CANCER SCREENING 2006 SIGMOIDOSCOPY EVERY 5 YEARS Breast Cancer Screening 05/14/2019 05/14/2018, (MAMMOGRAM) 02/01/2017 INFLUENZA VACCINE (#1) 2020 Zoster Recombinant Vaccine 02/11/2020 Postp oned from 2006 (SHINGRIX) (1 of 2) (Refused) Depression Screening 07/31/2020 07/31/2019 DTaP,Tdap,and Td Vaccines (2 11/01/2025 11/02/2015 - Td) COLONOSCOPY 05/05/2029 05/05/2019 Colorectal Cancer Screening 05/05/2029 HEPATITIS C (HCV) SCREEN Completed 07/31/2019 documented as of this encounter Results Not on filedocumented in this encounter Visit Diagnoses Diagnosis Edema, unspecified type documented in this encounter Insurance Payer Benefit Plan Subscriber ID Effective Dates Phone Address Type / Group [employer] [place] [id number] 2016-Martha [phone] [address] PPO/POS [place] - OUT OF t 7 [id number] [place] [address] documented as of this encounter
--- OUTSIDE RECORDS SUMMARY | 2020-03-22 11:51 | XMS REPORT | Summary of Care ---
:1955 Author Organization [facility] - [facility] Address [address] [place] [id number] Care Team Providers Name Role Phone MD Ronald Primary Care Provider Reason for Visit Reason Comments LAB covid testing- no symptoms a t this time Encounter Details Date Type Department Care Team Description 03/16/2020 Laboratory Only [facility] Family Hernan Larazari grover, [employer] [address] [place] [address] [phone] Exposure to Medicine - [facility], [facility] Fam Pob I SARS-associated [address] [facility] coronaviru s ([address] Dx) [place] [id number] Allergies Active Allergy Reactions Severity Noted Date Comments Adhesive Tape-Silicones Rash 12/17/2019 Iodine Rash 09/30/2009 Nsaids (Non-Steroidal Other - See comments 08/23/2017 Severe abdominal pain Anti-Inflammatory Drug) Penicillins Rash 09/30/2009 Sulfur Shortness of Breath 09/30/2009 documented as of this encounter (statuses as of 03/16/2020) Medications Medication Sig Dispensed Refills Start Date End Date Status ESGIC-PLUS 50-500-40 MG 1 tab prn 0 Active ORAL TAB migraines aspirin 81 mg EC Take 81 mg by 0 Active tabletIndications: TID mouth daily. in morning and night Indications: TID in morning and night azelastine 137 mcg (0.1 Use 1 [place] in 30 mL 2 08/23/2017 Active %) nasal each nostril 2 sprayIndications: Acute (two) times seasonal allergic daily. Use in rhinitis due to pollen each nostril as directed potassium chloride Take 1 tablet by 30 tablet 5 08/23/2017 Active (KLOR-CON 10) 10 mEq CR mouth daily. tabletIndications: Edema, unspecified type diphenhydramine HCl Take by mouth. 0 Active (BENADRYL ALLERGY ORAL) ammonium lactate 12 % Apply BID as 140 g 1 04/08/2019 Active creamIndications: needed for dry Xeroderma skin omeprazole 20 mg Take 20 mg by 0 05/21/2019 Active capsule mouth daily. linaCLOtide (LINZESS) Take by mouth. 0 Active 145 mcg capsule mupirocin 2 % Apply to area(s) 22 g 0 12/17/2019 Active ointmentIndications: 2 (two) times Nasal sore daily. triamcinolone acetonide Apply to area(s) 80 g 0 12/17/19 20 Active 0.1 % 2 (two) times ointmentIndications: daily. Skin rash, Insect bite without infection albuterol 90 Inhale 2 Puffs 8.5 g 2 12/17/2019 A ctive mcg/actuation every 6 (six) inhalerIndications: hours as needed Asthma, unspecified for Wheezing or asthma severity, Shortness of unspecified whether Breath. complicated, unspecified whether persistent LASIX 20 mg TAKE ONE TABLET 30 tablet 4 01/14/2020 A ctive tabletIndications: BY MOUTH DAILY Edema, unspecified type NEEDED FOR SWELLING documented as of this encounter (statuses as of 03/16/2020) Active Problems Problem Noted Date Nonintractable headache, unspecified chronicity patter n, unspecified 04/22/2018 headache type Pain of right hand 04/22/2018 Mass of hand, right 04/22/2018 Scalp mass 04/22/2018 Throat discomfort 08/15/2015 documented as of this encounter (statuses as of 03/16/2020) Immunizations Name Administration Dates Next Due TDAP 11/02/2015 documented as of this encounter Social History Tobacco Use Types Packs/Day Years Used Date Never Smoker Smokeless Tobacco: Never Used Alcohol Use Drinks/Week oz/Week Comments No Sex Assigned at Date Recorded Not on file COVID-19 Exposure Response Date Recorded In the last month, have you been in contact with No / Unsure 03/16/2020 6:47 PM CDT someone who was confirmed or suspected to have Coronavirus / COVID-19? documented as of this encounter Last Filed Vital Signs Not on filedocumented in this encounter Nursing Notes Shauna Clifford MA - 03/16/2020 6:40 PM CDTMarilyn Elza Fairchild is a 64 year old female here for COVID Screening with a Nasopharyngeal Swab All droplet and contact precautions taken with appropriate PPE worn while interacting with patient. ? Goggles ? N95 Mask ? Gloves ? Gown Patient educated on plan of care for visit, swabbing technique, risks and benefits of test and length of time to receive results. Verbal consent obtained to perform test. CDC Fact Sheet for Patients nCoV Diagnostic Panel dated 08/16/2019 and Factsheet What to Do if Sick with COVID 19 07/27/19 provided. Patient swabbed per appropriate nasopharyngeal technique, and patient tolerated well. Patient was discharged from the testing clinic in stable condition. Shauna Land MA 03/16/2020 6:49 PM Bilate nares swabbed during COVID19 nasopharyngeal swab. documented in this encounter Plan of Treatment Date Type Specialty Care Team Description 05/05/2020 Office Visit Family Medicine Pasquale Cardenas MD [address] [place] [address] [phone] Name Type Priority Associated Diagnoses Order S chedule COVID-19 (PCR MOLECULAR LAB Routine Exposure to Expe cted: 03/16/2020, TESTING) SARS-associated Expires: coronavirus Health Maintenance Due Date Last Done Comments PNEUMOCOCCAL 0-64 YEARS COMBINED SERIES (1 1962 of 1 - PPSV23) COLON CANCER SCREENING ANNUAL FIT/FOBT 2006 COLON CANCER SCREENING FIT DNA EVERY 3 2006 YEARS COLON CANCER SCREENING SIGMOIDOSCOPY EVERY 2006 5 YEARS Zoster Recombinant Vaccine (SHINGRIX) (1 2006 of 2) Breast Cancer Screening (MAMMOGRAM) 05/14/2019 05/14/2018, 02/01/2017 INFLUENZA VACCINE (#1) 2020 Depression Screening 07/31/2020 07/31/2019 DTaP,Tdap,and Td Vaccines (2 - Td) 11/01/2025 11/02/2015 COLONOSCOPY 05/05/2029 05/05/2019 Colorectal Cancer Screening 05/05/2029 HEPATITIS C (HCV) SCREEN Completed 07/31/2019 documented as of this encounter Results Not on filedocumented in this encounter Visit Diagnoses Diagnosis Exposure to SARS-associated coronavirus - Primary documented in this encounter Additional Health Concerns Infection Onset Date Last Indicated Resolved Time COVID-19 Rule Out 03/16/2020 03/16/2020 documented as of this encounter Insurance Payer Benefit Plan Subscriber ID Effective Dates Phone Address Type / Group BCBS [facility] [id number]-Martha [phone] [address] PPO/POS [place] - OUT OF t [id number] [place] [address] documented as of this encounter
[2020-03-22 11:58] LABS: ALT/SGPT 26 U/L (12-78); AST/SGOT 17 U/L (15-37); Albumin 4.2 g/dL (3.4-5.0); Alkaline Phosphatase 95 U/L (45-117); BUN Blood Urea Nitrogen 16 mg/dL (7-18); Bicarbonate 26 mmol/L (21-32); Bilirubin Direct < 0.1 mg/dL (0-0.2); Bilirubin Total 0.4 mg/dL (0.2-1.0); Glucose Level 113 mg/dL (74-106); Lipase 105 U/L (73-393); Protein, Total 8.3 g/dL (6.4-8.2); Sodium Level 140 mmol/L (136-145)
--- NOTE | 2020-03-22 12:43 | RAD REPORT ---
EXAM DESCRIPTION: CTAbdomen Pelvis W Contrast - 03/22/2020 12:26 pm CLINICAL HISTORY: Abdominal pain. GI BLEED COMPARISON: No comparisons TECHNIQUE: Biphasic CT imaging of the abdomen and pelvis was performed with 100 ml non-ionic IV cont rast. All CT scans are performed using dose optimization technique as appropriate and may include automated exposure control or mA/KV adjustment according to patient size. FINDINGS: The lung bases are clear. The liver, spleen, pancreas, adrenal glands and kidneys are within normal limits. No bowel obstruction, free air, free fluid or abscess. Thickening of the descending colon from the le simona of the splenic flexure to the sigmoid noted compatible with mild left-sided colitis. Appendectomy . No evidence of significant lymphadenopathy. No suspicious bony findings. IMPRESSION: Mild left-sided colitis pattern.
[2020-03-22] MEDS ORDERED: DIPHENHYDRAMINE 12.5MG/5ML LIQ ONE (12:49)
--- NOTE | 2020-03-22 13:21 | ER ---
Nurse's Notes [facility] Name: Valorie Fairchild Age: 64 yrs Sex: Female : 1955 Arrival Date: 03/22/2020 Time: 10:52 Bed 3 Private MD: Diagnosis: Abdominal and pelvic pain;Left sided colitis;Nausea and vomiting Presentation: 03/22 10:58 Coronavirus screen: Client denies travel out of the [place] in the last 14 days. At this ll1 time, the client does not indicate any symptoms associated with coronavirus-19. The client reports previous COVID testing was negative. Ebola Screen: Patient denies travel to an Ebola-affected area in the 21 days before illness onset. Initial Sepsis Screen: Does the patient meet any 2 criteria? HR > 90 bpm. No. Patient's initial sepsis screen is negative. Does the patient have a suspected source of infection? Yes: Acute abdominal pain. Risk Assessment: Do you want to hurt yourself or someone else? Patient reports no desire to harm self or others. Onset of symptoms was March 21, 2020. 10:58 Acuity: LAKEISHA 2 ll1 10:58 Method Of Arrival: Ambulatory ll1 11:05 Chief complaint: Patient states: Abdominal pain with N/V/D, states she has bright red ll1 blood passing rectally. Sent by Dr. Jordan for eval. No fever. Historical: - Allergies: 10:58 all pain meds; ll1 10:58 food allergies; ll1 10:58 IV contrast; ll1 10:58 NSAIDS; ll1 10:58 PENICILLINS; ll1 10:58 Tzcdgrs-Rfq-Xty Reductase Inhibitors; ll1 10:58 Sulfa (Sulfonamide Antibiotics); ll1 - PMHx: 10:58 ibs; Migraines; ll1 - PSHx: 10:58 colonoscopy; Appendectomy; Hysterectomy; ll1 - Immunization history:: Flu vaccine is not up to date. - Social history:: Smoking status: Patient denies any tobacco usage or history of. Screenin:24 Abuse screen: Denies threats or abuse. Nutritional screening: No deficits noted. em Tuberculosis screening: No symptoms or risk factors identified. Fall Risk None identified. Assessment: 11:35 General: Appears in no apparent distress. comfortable, Behavior is calm, cooperative, em appropriate for age, Denies fever. Pain: Complains of pain in abdomen Pain currently is 8 out of 10 on a pain scale. Pain began 1 day ago. Neuro: Level of Consciousness is awake, alert, obeys commands, Oriented to person, place, time, situation, Appropriate for age. Cardiovascular: Capillary refill < 3 seconds Patient's skin is warm and dry. Respiratory: Airway is patent Respiratory effort is even, unlabored, Respiratory pattern is regular, symmetrical. GI: Abdomen is flat, Reports bloody stool, vomiting x 1 bright red blood, denies nausea now. Derm: Skin is intact, is healthy with good turgor, Skin is pink, warm \T\ dry. Musculoskeletal: Capillary refill < 3 seconds, Range of motion: intact in all extremities. 12:37 Reassessment: Pt c/o headache and stated that Benadryl helps with her BOLANOS. sv 13:35 Reassessment: showed me pictures of 's BM from last night, appears to have em moderate amount of bright red blood, Dr. Trevino notified, Dr. Trevino will notify Dr. Jordan and decide on POC. 13:49 Reassessment: ambulated to the restroom with steady gait, reports having dark urine, em Dr. Trevino notified. 14:10 Reassessment: Dr. Trevino at bedside. em 14:22 Reassessment: covid swab sent to lab. em Vital Signs: 10:58 BP 132 / 88; Pulse 120; Resp 18; Temp 98.7; Pulse Ox 93% on R/A; Height 5 ft. 2 in. ll1 (157.48 cm); Pain 9/10; 11:34 BP 134 / 84; Pulse 84; Resp 18; Pulse Ox 95% on R/A; Pain 7/10; em 12:30 BP 142 / 69; Pulse 88; Resp 18; em 13:46 BP 131 / 71; Pulse 100; Resp 18; Pulse Ox 98% on R/A; em 14:30 BP 141 / 88; Pulse 86; Resp 18; Pulse Ox 96% on R/A; em ED Course: 10:52 Patient arrived in ED. ds1 10:58 Arm band placed on Patient placed in an exam room, on a stretcher. ll1 10:59 Triage completed. ll1 11:07 Hima Trevino MD is Attending Physician. kdr 11:12 Inserted saline lock: 20 gauge in left antecubital area, using aseptic technique. Blood mt collected. 11:24 Brandon Dubois, RN is Primary Nurse. em 11:24 Patient has correct armband on for positive identification. Placed in gown. Bed in low em position. Call light in reach. Adult w/ patient. Pulse ox on. NIBP on. 12:27 CT Abd/Pelvis - IV Contrast Only In Process Unspecified. EDMS 14:37 No provider procedures requiring assistance completed. IV discontinued, intact, em bleeding controlled, No redness/swelling at site. Pressure dressing applied. Administered Medications: 11:36 Drug: ProTONIX 40 mg Route: IVP; Site: left antecubital; em 12:40 Follow up: Response: No adverse reaction sv 12:39 Drug: Benadryl 12.5 mg Route: PO; sv 13:34 Follow up: Response: No adverse reaction; Marked relief of symptoms; Pain is decreased em 13:30 Drug: Flagyl 500 mg Route: PO; em 14:13 Follow up: Response: No adverse reaction em 13:30 Drug: Cipro 500 mg Route: PO; em 14:13 Follow up: Response: No adverse reaction em 13:56 Drug: NS 0.9% 500 ml Route: IV; Rate: bolus; Site: left antecubital; em 14:42 Follow up: IV Status: Completed infusion; IV Intake: 500ml em Intake: 14:42 IV: 500ml; Total: 500ml. em Outcome: 13:20 Discharge ordered by . kdr 14:42 Discharged to home ambulatory, with family. em 14:42 Condition: stable 14:42 Discharge instructions given to patient, family, Instructed on discharge instructions, follow up and referral plans. medication usage, Demonstrated understanding of instructions, follow-up care, medications, Prescriptions given X 4. 14:42 Patient left the ED. em Addendum: 03/24/2020 12:02 Addendum: COVID-19 Result: Negative result given to RN to notify pt. Left voice mail. a a5 13:53 Addendum: COVID-19 Result: Negative result given to RN to notify pt. Notified pt of a a5 negative COVID 19 swab results. Pt advised that even with a negative test result they should remain in isolation until symptom free for 3 days without medication. Pt also advised to return to the ED for worsening symptoms. Signatures: Dispatcher [employer] Kelly Gutierrez, RN RN Hima Davis MD MD kdr Munoz, Edgar, RN RN em Sanford, Demi ds1 Shila Vargas RN RN aa5 Willy, Mirna Pope mt RN RN ll1
--- NOTE | 2020-03-22 13:21 | EDPHYS ---
Physician Documentation [facility] Name: Valorie Fairchild Age: 64 yrs Sex: Female : 1955 Arrival Date: 03/22/2020 Time: 10:52 Bed 3 Private MD: ED Physician Hima Trevino HPI: 03/22 19:08 This 64 yrs old Female presents to ER via Ambulatory with complaints of kdr Abdominal Pain, Nausea/Vomiting. 19:08 The patient presents to the emergency department with nausea, that is mild, vomiting, kdr that is intermittent, described as bright red blood, diarrhea, that is intermittent, abdominal pain, of the abdomen diffusely. Onset: The symptoms/episode began/occurred gradually, this morning. Possible causes: unknown, flare up of bowel problem, irritable bowel disease. The symptoms are aggravated by nothing. The symptoms are alleviated by nothing. Associated signs and symptoms: Pertinent positives: abdominal pain, diarrhea, nausea, vomiting. Severity of symptoms: At their worst the symptoms were mild moderate just prior to arrival, in the emergency department the symptoms have improved moderately. The patient has experienced similar episodes in the past, a few times. The patient has been recently seen by a physician: the patient's primary care provider. Historical: - Allergies: 10:58 all pain meds; ll1 10:58 food allergies; ll1 10:58 IV contrast; ll1 10:58 NSAIDS; ll1 10:58 PENICILLINS; ll1 10:58 Vanrsbz-Vfr-Osp Reductase Inhibitors; ll1 10:58 Sulfa (Sulfonamide Antibiotics); ll1 - PMHx: 10:58 ibs; Migraines; ll1 - PSHx: 10:58 colonoscopy; Appendectomy; Hysterectomy; ll1 - Immunization history:: Flu vaccine is not up to date. - Social history:: Smoking status: Patient denies any tobacco usage or history of. ROS: 19:08 Constitutional: Negative for fever, chills, and weight loss, Eyes: Negative for injury, kdr pain, redness, and discharge, ENT: Negative for injury, pain, and discharge, Neck: Negative for injury, pain, and swelling, Cardiovascular: Negative for chest pain, palpitations, and edema, Respiratory: Negative for shortness of breath, cough, wheezing, and pleuritic chest pain, Back: Negative for injury and pain, : Negative for injury, bleeding, discharge, and swelling, MS/Extremity: Negative for injury and deformity, Skin: Negative for injury, rash, and discoloration, Neuro: Negative for headache, weakness, numbness, tingling, and seizure activity. Psych: Negative for depression, anxiety, suicide ideation, homicidal ideation, and hallucinations, Allergy/Immunology: Negative for hives, rash, and allergies, Endocrine: Negative for neck swelling, polydipsia, polyuria, polyphagia, and marked weight changes, Hematologic/Lymphatic: Negative for swollen nodes, abnormal bleeding, and unusual bruising. 19:08 Abdomen/GI: Positive for abdominal pain, diarrhea, hematemesis, rectal bleeding. Exam: 19:08 Constitutional: This is a well developed, well nourished patient who is awake, alert, kdr and in no acute distress. Head/Face: Normocephalic, atraumatic. Eyes: Pupils equal round and reactive to light, extra-ocular motions intact. Lids and lashes normal. Conjunctiva and sclera are non-icteric and not injected. Cornea within normal limits. Periorbital areas with no swelling, redness, or edema. Neck: Trachea midline, no thyromegaly or masses palpated, and no cervical lymphadenopathy. Supple, full range of motion without nuchal rigidity, or vertebral point tenderness. No Meningismus. Chest/axilla: Normal chest wall appearance and motion. Nontender with no deformity. No lesions are appreciated. Cardiovascular: Regular rate and rhythm with a normal S1 and S2. No gallops, murmurs, or rubs. Normal PMI, no JVD. No pulse deficits. Respiratory: Lungs have equal breath sounds bilaterally, clear to auscultation and percussion. No rales, rhonchi or wheezes noted. No increased work of breathing, no retractions or nasal flaring. Back: No spinal tenderness. No costovertebral tenderness. Full range of motion. Skin: Warm, dry with normal turgor. Normal color with no rashes, no lesions, and no evidence of cellulitis. MS/ Extremity: Pulses equal, no cyanosis. Neurovascular intact. Full, normal range of motion. Neuro: Awake and alert, GCS 15, oriented to person, place, time, and situation. Cranial nerves II-XII grossly intact. Motor strength 5/5 in all extremities. Sensory grossly intact. Cerebellar exam normal. Normal gait. Psych: Awake, alert, with orientation to person, place and time. Behavior, mood, and affect are within normal limits. 19:08 Abdomen/GI: Inspection: abdomen appears normal, Bowel sounds: diminished, in all quadrants, Palpation: soft, mild abdominal tenderness, in all quadrants, Rectal exam: rectal tone normal, Stool: normal, guaiac positive, black, green. Vital Signs: 10:58 BP 132 / 88; Pulse 120; Resp 18; Temp 98.7; Pulse Ox 93% on R/A; Height 5 ft. 2 in. ll1 (157.48 cm); Pain 9/10; 11:34 BP 134 / 84; Pulse 84; Resp 18; Pulse Ox 95% on R/A; Pain 7/10; em 12:30 BP 142 / 69; Pulse 88; Resp 18; em 13:46 BP 131 / 71; Pulse 100; Resp 18; Pulse Ox 98% on R/A; em 14:30 BP 141 / 88; Pulse 86; Resp 18; Pulse Ox 96% on R/A; em MDM: 13:20 Patient medically screened. kdr 19:08 Data reviewed: vital signs, nurses notes, lab test result(s), radiologic studies. kdr Counseling: I had a detailed discussion with the patient and/or guardian regarding: the historical points, exam findings, and any diagnostic results supporting the discharge/admit diagnosis, lab results, radiology results, the need for outpatient follow up. Physician consultation: Nba Black MD regarding consult, patient's condition, outpatient follow-up, and will see patient in office, in 2-3 days. 03/22 11:20 Order name: Basic Metabolic Panel; Complete Time: 13:13 kdr 03/22 11:20 Order name: CBC with Diff; Complete Time: 13:13 kdr 03/22 11:20 Order name: Hepatic Function; Complete Time: 13:13 kdr 03/22 11:20 Order name: Lipase; Complete Time: 13:13 kdr 03/22 11:20 Order name: PT-INR; Complete Time: 13:13 kdr 03/22 11:20 Order name: Type And Screen; Complete Time: 13:13 kdr 03/22 11:20 Order name: CT Abd/Pelvis - IV Contrast Only; Complete Time: 13:13 kdr 03/22 13:46 Order name: ABO/RH no charge; Complete Time: 14:06 EDMS 03/22 14:08 Order name: COVID-19 hb 03/22 11:20 Order name: IV Saline Lock; Complete Time: 11:21 kdr 03/22 11:20 Order name: Labs collected and sent; Complete Time: 11:21 kdr 03/22 11:52 Order name: Labs - recollect needed: recollect type and screen; Complete Time: 12:01 bd 03/22 13:21 Order name: PO challenge; Complete Time: 13:35 kdr Administered Medications: 11:36 Drug: ProTONIX 40 mg Route: IVP; Site: left antecubital; em 12:40 Follow up: Response: No adverse reaction sv 12:39 Drug: Benadryl 12.5 mg Route: PO; sv 13:34 Follow up: Response: No adverse reaction; Marked relief of symptoms; Pain is decreased em 13:30 Drug: Flagyl 500 mg Route: PO; em 14:13 Follow up: Response: No adverse reaction em 13:30 Drug: Cipro 500 mg Route: PO; em 14:13 Follow up: Response: No adverse reaction em 13:56 Drug: NS 0.9% 500 ml Route: IV; Rate: bolus; Site: left antecubital; em 14:42 Follow up: IV Status: Completed infusion; IV Intake: 500ml em Disposition: 03/22/20 13:20 Discharged to Home. Impression: Abdominal and pelvic pain, Left sided colitis, Nausea and vomiting. - Condition is Stable. - Discharge Instructions: Nausea and Vomiting, Adult, Ynit-wl-Husb, Abdominal Pain, Adult, Aipo-ay-Nqwb. - Prescriptions for Flagyl 500 mg Oral Tablet - take 1 tablet by ORAL route every 6 hours for 10 days; 40 tablet. Pepcid 20 mg Oral Tablet - take 1 tablet by ORAL route every 12 hours for 5 days; 10 tablet. Zofran 4 mg Oral Tablet - take 1 tablet by ORAL route every 12 hours As needed; 6 tablet. Cipro 500 mg Oral Tablet - take 1 tablet by ORAL route every 12 hours for 10 days; 20 tablet. - Medication Reconciliation Form, Thank You Letter, Antibiotic Education form. - Follow up: Private Physician; When: 2 - 3 days; Reason: If symptoms return, Further diagnostic work-up, Recheck today's complaints, Continuance of care, Re-evaluation by your physician. - Problem is new. - Symptoms have improved. Signatures: Dispatcher [employer] Roxie Mann Stephanie, RN RN Hima Davis MD MD kdr Munoz, Edgar, RN RN em Nasreen Gonsalez RN RN Mirna Bell RN RN ll1 Corrections: (The following items were deleted from the chart) 14:42 13:20 03/22/2020 13:20 Discharged to Home. Impression: Abdominal and pelvic pain; Left em sided colitis; Nausea and vomiting. Condition is Stable. Forms are Medication Reconciliation Form, Thank You Letter, Antibiotic Education, Prescription Opioid Use. Follow up: Private Physician; When: 2 - 3 days; Reason: If symptoms return, Further diagnostic work-up, Recheck today's complaints, Continuance of care, Re-evaluation by your physician. Problem is new. Symptoms have improved. kdr
[2020-03-22] MEDS ORDERED: metroNIDAZOLE 500 MG TABLET ONE (13:43)
[2020-03-22] MEDS ORDERED: CIPROFLOXACIN HCL 500 MG TAB ONE (13:44)
[2020-03-22] MEDS ORDERED: NA CHLORIDE 0.9% 500 ML ONE (14:06)
[2020-03-22 15:46] VITALS: TEMP 98.7
[2020-03-22 15:54] VITALS: BP 141/88; O2SAT 96
== END 2020-03-22 14:42 | disposition home or self-care (01) ==
LOC: ER 10:50
DX: K51.50 Left sided colitis without complications (principal); R11.2 Nausea with vomiting, unspecified; Z20.828 Contact with and (suspected) exposure to other viral communicable diseases; Z88.0 Allergy status to penicillin; Z88.2 Allergy status to sulfonamides; Z88.6 Allergy status to analgesic agent; Z88.8 Allergy status to other drugs, medicaments and biological substances
CPT/HCPCS: 96361; 85025; 80048; 36415; 86900; 86850; 85610; 86901; 80076; 83690; 74177; 96374; 99284; U0002; Q9967; C9113; J7040; Q0163